=== PATIENT | female | born 1970 | race Caucasian/White ===

== ENCOUNTER → 2018-01-10 15:50 | Outpatient (CLI) | payer OTHER, SELFPAY ==
--- NOTE | 2018-01-10 16:08 | RAD_ITS ---
STUDY: X-RAY - CERVICAL SPINE REASON FOR EXAM: Female, 47 years old. Pain TECHNIQUE: 7 view(s) of the cervical spine were obtained. COMPARISON: None FINDINGS: There is no evidence of fracture or dislocation in the cervical spine. The dens is intact. The vertebral body heights and disc spaces are well-maintained. There is no evidence of subluxation on flexion or extension There are no significant degenerative changes. The prevertebral soft tissues are unremarkable. There is no radiodense foreign body. RAD/Cerv Spine Obl/Flex/Ext Comp IMPRESSION: Negative radiographs of the cervical spine. Electronically Signed: Demetris Hill, at 23:45 EDT Tel , Service support ,
== END ==
PROVIDERS: Family Provider Nurse Practitioner Family; PCP Nurse Practitioner Family; Visit Provider Family Medicine
DX: M54.2 Cervicalgia (principal)
CPT/HCPCS: 72052

== ENCOUNTER → 2018-02-14 09:29 | Outpatient (CLI) | payer OTHER, SELFPAY ==
[2018-02-14 10:23] LABS: Glucose 87 mg/dL (74-106)
[2018-02-14 10:35] LABS: Insulin 10.4 mU/L (2.6-37.6)
== END ==
PROVIDERS: Family Provider Nurse Practitioner Family; PCP Nurse Practitioner Family; Visit Provider Internal Medicine Endocrinology, Diabetes & Metabolism
DX: E28.2 Polycystic ovarian syndrome (principal)
CPT/HCPCS: 36415; 82947; 83525; 84403

== ENCOUNTER 2018-03-13 08:15 | Outpatient (RCR) | payer OTHER, SELFPAY ==
--- NOTE | 2018-02-13 10:39 | MASS.EVAL ---
Massage Therapy Evaluation: Initial Evaluation Date: 02/13/2018 SUBJECTIVE: Alem is a 48 year old female who was referred to the [facility] facility for a massotherapy evaluation by Dr. Gary Barahona with the diagnosis of cervical myalgia and thoracic myalgia. 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 Alem presents today with the symptoms of neck and upper back pain and tension. She also has muscle tension in her low back. Alem reports having a medical history of neck and back pain. She reports she has had physical therapy and some chiropractor work. She reports having minimal limitations during her daily activities. OBJECTIVE: Upon observation Alem has poor posture with her head forward and shoulders forward from the neutral position in sitting and standing. After examination and palpation I found Alem to have very high muscle tension with tenderness and myofascial restrictions in her sub occipitals, trapezius, rhomboids, scalenes, thoracic paraspinals. Her cervical through lumbar paraspinals were also tight. The first treatment consisted of a one hour massage to her upper body with myofascial release, muscle stripping, trigger point compression techniques, and cervical manual traction. ASSESSMENT: I feel that Alem is a good candidate for massotherapy at this time. She had a favorable response to the first treatment with reduction in her muscle aches, pain and tension. She also had improvement in her cervical flexibility. PLAN: The plan of care was reviewed with the patient. The patient is to be seen on as needed basis for a total of ten sessions with the recommendation of once every four weeks for a one hour treatment.
--- NOTE | 2018-02-13 10:45 | MASS.EVAL_ITS ---
Massage Therapy Evaluation: Initial Evaluation Date: 02/13/2018 SUBJECTIVE: Alem is a 48 year old female who was referred to the [facility] facility for a massotherapy evaluation by Dr. Gary Barahona with the diagnosis of cervical myalgia and thoracic myalgia. 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 Alem presents today with the symptoms of neck and upper back pain and tension. She also has muscle tension in her low back. Alem reports having a medical history of neck and back pain. She reports she has had physical therapy and some chiropractor work. She reports having minimal limitations during her daily activities. OBJECTIVE: Upon observation Alem has poor posture with her head forward and shoulders forward from the neutral position in sitting and standing. After examination and palpation I found Alem to have very high muscle tension with tenderness and myofascial restrictions in her sub occipitals, trapezius, rhomboids, scalenes, thoracic paraspinals. Her cervical through lumbar paraspinals were also tight. The first treatment consisted of a one hour massage to her upper body with myofascial release, muscle stripping, trigger point compression techniques, and cervical manual traction. ASSESSMENT: I feel that Alem is a good candidate for massotherapy at this time. She had a favorable response to the first treatment with reduction in her muscle aches, pain and tension. She also had improvement in her cervical flexibility. PLAN: The plan of care was reviewed with the patient. The patient is to be seen on as needed basis for a total of ten sessions with the recommendation of once every four weeks for a one hour treatment.
--- NOTE | 2018-10-03 12:59 | MASS.DISCH ---
Massage Therapy Discharge Summary: Discharge Date: 10/03/2018 Alem was seen for a massotherapy evaluation on 02/13/2018 with the diagnosis of cervical and thoracic myalgia. She was treated with two sessions of massage therapy consisting of moderate to deep pressure soft tissue techniques, myofascial release and trigger point compression to her cervical, thoracic, lower back, and upper extremities. Alem responded well to the therapy by reporting decreased tension and pain throughout her neck, shoulders, and lower back. She was only able to schedule two appointments for the year 2017. At this time this patient is being discharged from our care at [facility] facility.
== END 2018-03-13 19:00 | disposition home or self-care (01) ==
LOC: MASS 08:15
PROVIDERS: Family Provider Nurse Practitioner Family; PCP Nurse Practitioner Family
DX: M79.1 Myalgia (principal)
CPT/HCPCS: 97124

== ENCOUNTER → 2018-05-07 06:03 | Outpatient (CLI) | payer OTHER, SELFPAY ==
[2018-05-07 07:35] LABS: Glucose 93 mg/dL (74-106)
[2018-05-07 08:45] LABS: Hemoglobin A1c 4.9 % (4.2-6.3)
[2018-05-07 09:57] LABS: Insulin 10.8 mU/L (2.6-37.6)
== END ==
PROVIDERS: Family Provider Nurse Practitioner Family; PCP Nurse Practitioner Family
DX: E28.2 Polycystic ovarian syndrome (principal)
CPT/HCPCS: 36415; 82947; 83036; 83525

== ENCOUNTER → 2018-08-29 09:05 | Outpatient (CLI) | payer OTHER, SELFPAY ==
--- NOTE | 2018-08-29 13:40 | NEURO ---
NCS and/or EMG Patient Report Ordering Doctor: Miguel Ángel Bee DATE OF SERVICE: 08/29/18 Alem Messer is a 48-year-old female presents for electrodiagnostic testing of the left upper limb. Shorts numbness and tingling in the left hand. Next Electrodiagnostic findings: Left median motor nerve demonstrates normal distal latency, amplitude and conduction velocity. Normal left ulnar motor response, including conduction across the elbow. Normal median and ulnar F wave. Prolonged left median sensory latency at the wrist. Prolonged left median palmar latency. On needle EMG, all muscles tested in the left upper limb as well as left cervical paraspinal showed no evidence of denervation with normal motor unit action potentials. Electrodiagnostic impression: This is an abnormal study. 1. Electrodiagnostic findings demonstrate left-sided median mononeuropathy. This is consistent with a mild left carpal tunnel syndrome. If there are any further questions, please do not hesitate to contact me
== END ==
PROVIDERS: Family Provider Nurse Practitioner Family; PCP Nurse Practitioner Family; Referring Provider Family Medicine; Visit Provider Family Medicine
DX: R20.0 Anesthesia of skin (principal)
CPT/HCPCS: 95886; 95910

== ENCOUNTER → 2018-09-05 21:21 | Outpatient (CLI) | payer OTHER, SELFPAY ==
[2018-09-10 13:52] LABS: HPV APTIMA, High Risk Negative (Negative)
== END ==
PROVIDERS: Family Provider Nurse Practitioner Family; PCP Nurse Practitioner Family; Referring Provider Nurse Practitioner Women's Health; Visit Provider Nurse Practitioner Women's Health
DX: Z12.4 Encounter for screening for malignant neoplasm of cervix (principal)
CPT/HCPCS: 87624; 88175; G0145

== ENCOUNTER → 2018-09-28 10:02 | Outpatient (CLI) | payer OTHER, SELFPAY ==
[2018-09-21 14:15] VITALS: BMI 41.1
[2018-09-28 11:15] LABS: Estradiol 189.8 pg/mL; Follicle Stimulating Hormone 5.2 mIU/mL
== END ==
PROVIDERS: Family Provider Family Medicine; PCP Family Medicine; Referring Provider Obstetrics & Gynecology; Visit Provider Obstetrics & Gynecology
DX: N95.1 Menopausal and female climacteric states (principal)
CPT/HCPCS: 36415; 82670; 83001

== ENCOUNTER → 2018-10-31 13:38 | Outpatient (CLI) | payer OTHER, SELFPAY ==
[2018-09-21 14:15] VITALS: BMI 41.1
[2018-10-31 17:35] LABS: Chlamydia Trachomatis by PCR Negative (Negative); Neisserai gonorrhoeae by PCR Negative (Negative); Probe Check PASS; Sample Adequacy Control PASS; Specimen Processing Control PASS
== END ==
PROVIDERS: Family Provider Family Medicine; PCP Family Medicine; Referring Provider Obstetrics & Gynecology; Visit Provider Obstetrics & Gynecology
DX: Z20.2 Contact with and (suspected) exposure to infections with a predominantly sexual mode of transmission (principal)
CPT/HCPCS: 87491; 87591

== ENCOUNTER → 2018-11-15 14:40 | Outpatient (CLI) | payer OTHER, SELFPAY ==
--- NOTE | 2018-11-15 17:20 | BI_ITS ---
MAMMOGRAPHY - BILATERAL SCREENING REASON FOR EXAM: Female, 48 years old. Routine annual screening examination. PERTINENT HISTORY: Non-contributory. TECHNIQUE: Digital bilateral breast leora (3D mammographic acquisition) in the CC and MLO projections. 2-D mediolateral oblique (MLO) and craniocaudad (CC) views of both breasts were obtained. CAD: Full Field Digital Mammography with Computer Added Detection was performed. COMPARISON: Comparison is made with prior study dated November 09, 2017 and October 12, 2015. FINDINGS: Breast Composition: There are scattered areas of fibroglandular density. There are no dominant masses or suspicious calcifications. No other significant abnormalities are identified. There has been no significant change since the prior study. BI/SCREENING MAMM (CAD), BILAT IMPRESSION: Stable bilateral screening mammogram. Yearly follow-up mammogram recommended. (A) ASSESSMENT CATEGORY: BIRADS Category 1: Negative. A letter regarding these results will be sent to the patient by the facility within 30 days. Approximately 10% of breast cancers are not detected by mammography. A normal mammogram should not delay biopsy of a clinically suspicious abnormality. [id number] Electronically Signed: Malcom Rachel MD at 8:41 EST , Service support ,
--- OUTSIDE RECORDS SUMMARY | 2019-02-25 18:55 | XMS RPT_ITS | CCD ---
:1970 External Reference #:[id number] [facility] Care Team Providers Name Role Phone Unavailable Unavailable Unavailable Medications Medication Name Sig Date Prescriber Location amoxicillin / AMOXICILLIN-POT 08-28-2017 - Frank CARRIZALES [facility] Now [facility] clavulanate CLAVULANATE 875-125 09-07-2017 (67586) MG TABS Take 1 tab every 12 hours AMOXICILLIN-POT CLAVULANATE [id number] Frank CARRIZALES Problems Category Problem Name Status Date Location Other upper Congestion of nasal Completed 08-28-2017 [facility] respiratory disease sinus (70424) Other upper Acute sinusitis Completed 08-28-2017 [facility] respiratory infections (69312) Results Result Name Value Range Unit Interpretation Flag Date Location office visit: uc: sinus congestion on null Documentation of Done Invalid 08-28-2017 [facility] Now current medications Interpretation Code 08-28-2017 [facility] (procedure) (51867) Fall risk assessment No Invalid 08-28-2017 [facility] Interpretation Code 08-28-2017 [facility] (13089) Tobacco use [facility] Never smoker Invalid 08-28-2017 [facility] Interpretation Code 08-28-2017 [facility] ([id number]) cnpn on 2018-05-11 CNPN Telephone Normal 05-11-2018 [place] ([facility]) ALEM MESSER Phu Butler ([id number]) 1970 [facility] Time Provider Department05/11/18 MARYELLEN BOLIVAR During your visit [place] today, we recorded the following information about you:Kary Doherty RN 05/11/2018 10:49 AM ([id number]) SignedReceived a faxed request for PA for RX Saxenda from [facility].Completed the PA form for [employer] (form was provided to us from the pharmacy).Completed and faxed form and OV notes to [phone]. Transmission ok.Will await approval / denial.Kary Doherty RN 05/17/2018 9:34 AM SignedCalled to check the status of the below PA request for Saxenda.Called [employer] at [phone], spoke to rep Gaona. She stated that thisrequest us DENIED due to it being a plan exclusion.Patient will be notified of the denial and that this will be sent to Dr Bolivarro review when she returns to the office 05/28/18.Called patient's home# [phone] , left voice message to call office [phone], and ask to speak to the nurse.Kary Doherty RN 05/17/2018 10:06 AM SignedPatient returned call.Message below provided to patient.Please review the below.Maryellen Bolivar MD 05/28/2018 9:12 AM SignedReAgustin Bolivar MD05/28/18Kary Doherty RN 05/31/2018 9:31 AM SignedPatient called back, asking if there another medication that can be prescribedfor weight loss that she could pay out of pocket for?Maryellen Bolivar MD 05/31/2018 3:02 PM SignedWe could try Qsymia, but that is likely a plan of exclusion as wellIf she can call her insurance and find out if they cover any weight loss Rx,that will be easierMaryellen Bolivar MD05/31/18Kary Doherty RN 06/01/2018 9:29 AM SignedThis entire drug class is a plan exclusion.Patient is willing to pay out of pocket she just wants to be placed on the mostcost effective one.Maryellen Bolivar MD 06/04/2018 8:54 AM AddendumWill Rx QysmiaPlease fax the Rx to pharmacyFor the initial 2 week, the dose will be 3.75/23 mg dailyAfterwards, she will start 7.5/46 mg dailyShe will stay on that dose until she follow ups with me in 12 weeksMaryellen Bolivar MD06/04/18keily Bolivar MD 06/04/2018 8:54 AM SignedAddended by: MARYELLEN BOLIVAR DO on: 06/04/2018 08:54 AM Modules accepted: Arely Newman Ma 06/04/2018 9:37 AM SignedThe following prescriptions have been approved and faxed to [facility] [phone]. Transmission ok:Signed Prescriptions Disp Refills phentermine-topiramate ER (QSYMIA) 3.75-23 mg 24 Hr Capsule 14 capsule 0 Sig: Take 1 capsule by mouth once daily for 14 days. STAN Class: C-IV Authorizing Provider: MARYELLEN BOLIVAR phentermine-topiramate ER (QSYMIA) 7.5-46 mg 24 Hr Capsule 30 capsule 2 Sig: Take 1 capsule by mouth once daily for 30 days. STAN Class: C-IV Authorizing Provider: Ronnie BOLIVARergies As of Date: 05/11/2018(No Known Allergies)Date Reviewed: 04/12/2018Reviewed by: Maryellen Bolivar - Fully AssessedReason for Visit: SOFIE--Sylvia 2017 [Other]Primary Visit Diagnosis:Class 3 obesity without serious comorbidity with body mass index (BMI) of 40.0 to 44.9 in adult, unspecified obesity type (HCC) [E66.9, Z68.41]Order(s):phentermine-topiramate ER (QSYMIA) 3.75-23 mg 24 Hr CapsuleTake 1 capsule by mouth once daily for 14 days.Disp: 14 capsuleRfl: 0 [START ON 06/18/2018] phentermine- topiramate ER (QSYMIA) 7.5-46 mg 24 Hr CapsuleTake 1 capsule by mouth once daily for 30 days.Disp: 30 capsuleRfl: 2Prescriptions as of 05/11/2018 Sig: PHENTERMINE 3.75 MG-TOPIRAMAT* Take 1 capsule by mouth once * PHENTERMINE 7.5 MG-TOPIRAMATE* Take 1 capsule by mouth once * METFORMIN 500 MG TABLET Take 1 tablet by mouth twice * LIRAGLUTIDE 3 MG/0.5 ML (18 M* Inject 0.6 mg subcutaneously *Problem List As Of Date 05/11/2018 Noted Resolved Class 3 obesity without serious comorbidity wit*INVALID FOR* Hirsutism [L68.0] INVALID FOR* Insulin resistance [E88.81] INVALID FOR* PCOS (polycystic ovarian syndrome) [E28.2] INVALID FOR*Prescriptions ordered this encounter Disp Refills Start End PHENTERMINE 3.75 MG-TOPIRAMATE ER 23* 14 c* 0 06/04/2018 06/18/2018 Class: Print RX Route: ORAL Sig: Take 1 capsule by mouth once daily for 14 days. PHENTERMINE 7.5 MG-TOPIRAMATE ER 46 * 30 c* 2 06/18/2018 07/18/2018 Class: Print RX Route: ORAL Sig: Take 1 capsule by mouth once daily for 30 days. Status:Closed by MARYELLEN BOLIVAR DO on 05/28/18 progress on 2018-04-12 Protein HNO ID: [id number]: Maryellen Martinezervice: (none)Author Normal 04-12-2018 [facility] Type: PhysicianType: Progress NotesFiled: 04/13/2018 10:10 Clinic conc AMNote Text: POLYCYSTIC OVARIAN SYNDROME INITIAL [place] CONSULTPATIENT NAME: Alem MesserMRN: [id number] ([id number]) DATE: 04/12/2018REASON FOR CONSULT: PCOSREQUESTING PHYSICIAN: SELFSubjectiveHISTORY OF PRESENT ILLNESS: Ms. Messer is a 48 year old femalepresenting as a new patient to me for evaluation of PCOS.History in brief, she was diagnosed with PCOS at age 21.States that at that time, she had irregular mensesHer main concern today is weight mgmtAcne:NoHirsutism: upper lip and chin, some on the chestPatient uses mechanical hair removal (i.e. tweezers/waxing/shaving):tweezes dailyHistory of deepening of voice: NoHistory of change in genitalia: NoLMP: April 02, 2018States that her cycles > 4 weeks apartMenarche: 13 years oldNumber of Pregnancies: 1 pregnancyNo trouble concievingPlanning a : noCurrently taking oral contraception: no, she stopped OCP 20 years agoIn the past, she also tried MetforminDeveloped nausea and stopped itOverall, the patient has no acute complaints at this time.Patient reports that she saw an caterpillar operator and was restarted onMetforminIn the past, she tried weight watchers and was able to lose weightRecently, she started Advocare supplements and nutritional drinks.Reports that she works multiple job and her schedule variesShe eats regular meals, snacks are healthyReports that she mostly eats protein for breakfastFeels very hungry prior to lunchPAST MEDICAL HISTORYDiagnosis Date- PCOS (polycystic ovarian syndrome)PAST SURGICAL HISTORYProcedure Laterality Date- KNEE ARTHROSCOPYFAMILY HISTORYProblem Relation Age of Onset- Diabetes Maternal GrandmotherSocial HistorySubstance Use Topics- Smoking status: Former Smoker- Smokeless tobacco: Never Used- Alcohol use NoMEDICATIONS:Current Outpatient Prescriptions:metFORMIN 500 mg tablet Take 1 tablet by mouth twice daily with meals.Disp: 60 tablet Rfl: 6No current facility-administered medications for this visit.ALLERGIESNo Known AllergiesCOMPLETE REVIEW OF SYSTEMS:CONSTITUTIONAL: Negative for weakness, lightheadedness, F/C, increasedthirst, unexplained weight loss/weight gain, heat intolerance or feelingcold.EYES: Negative for blurry vision, retinopathy, or hemianopia.CARDIOVASCULAR: Negative for CP, DIAZ, PND, orthopnea, HTM, dizziness orpalpitations.RESPIRATORY: Negative for cough, SOB, breathlessness or hemoptysis.GASTROINTESTINAL: Negative for N/V/D, gastroparesis, polydipsia, abdominalpain, liver failure or constipation.MUSCULOSKELETAL: Negative for pain, injury, focal weakness, ambulation,fractures, deformity or myopathy.NEUROLOGICAL: Negative for paresthesias, headache, h/o stroke/TIA,lethargy or exhaustion.ENDOCRINE: Negative for diabetes, thyroid or Richardson's.HEMATOLOGIC/LYMPHATIC: Negative for bruising or bleeding.ALLERGIC/IMMUNOLOGIC: Negative for splenectomy.ObjectivePHYSICAL EXAM:BP 137/88 (BP Site: Left Arm, BP Position: Sitting, BP Cuff Size: LargeAdult) Pulse 77 Ht 167.5 cm (5' 5.95) Wt 120.2 kg (265 lb) SpO2 97%BMI 42.84 kg/i4USBNQAKYYQ:Well appearing, alert, in no acute distress, well-hydrated,well nourished.Acanthosis Nigricans:NoneEYES:TERI, extra occular movements normalNECK:neck supple, no adenopathy; thyroid symmetric, normal size, nobruits.THYROID:normal to inspection, palpation and auscultationTHYROID SIZE:normalHEART:RRR with normal S1 and S2, no murmurs, no gallops, no JVDappreciatedLUNGS:clear to auscultationABD:bowel sounds normoactive, no bruits, soft, non-tender, non-distendedEXTREMITIES:Normal, No deformities, No skin discoloration, No edema andNormal pulses bilaterally.NEURO:Awake, alert and oriented x 3, No involuntary motions. and ReflexessymmetricalSKIN:Skin color, texture, turgor normal, no suspicious rashes or lesionsDATA:Diagnostic tests reviewed for today's visit:Most recent labsImpression/RecommendationsAssessment/Plan:PCOSInsulin resistanceObesity/BMI 42HirsutismHer goal is to lose weight and reduce hirsutismWe discussed pathophysiology of PCOS and treatment goalsNo biochemical evidence of androgen excessThis was evaluated by her previous endocrinologistTestosterone was normal per patientthyroid function test were normalCheck A1c, fasting insulin and glucose levelWill titrate metformin accordinglyWe discussed weight loss medication- Saxenda vs QsymiaWill await biochemical evaluationCut down on carbs and increase protein in her dietRecommended her to continue physical activityWe briefly discussed adding Qtrqojhqi366 mg daily to reduce hirsutismSIGNATURE: Maryellen Bolivar MDDATE: April 12, 2018TIME: 1:07 PM cnov on 2018-04-12 CNOV Office Visit Normal 04-12-2018 [place] ([facility]) ALEM MESSER ([id number]) 1970 FDate Time Provider Department04/12/18 12:45 PM MARYELLEN BOLIVAR During your [place] visit today, we recorded the following information about you: Pulse Blood pressure Weight Height (57929) 77/minute 137/88 120.2 kg 1.675 Prabha Bolivar MD 04/13/2018 10:10 AM Signed POLYCYSTIC OVARIAN SYNDROME INITIAL CONSULTPATIENT NAME: Alem MesserMRN: [id number] DATE: 04/12/2018REASON FOR CONSULT: PCOSREQUESTING PHYSICIAN: SELFSubjectiveHISTORY OF PRESENT ILLNESS: Ms. Messer is a 48 year old female presenting asa new patient to me for evaluation of PCOS.History in brief, she was diagnosed with PCOS at age 21.States that at that time, she had irregular mensesHer main concern today is weight mgmtAcne:NoHirsutism: upper lip and chin, some on the chestPatient uses mechanical hair removal (i.e. tweezers/waxing/shaving): tweezesdailyHistory of deepening of voice: NoHistory of change in genitalia: NoLMP: April 02, 2018States that her cycles > 4 weeks apartMenarche: 13 years oldNumber of Pregnancies: 1 pregnancyNo trouble concievingPlanning a : noCurrently taking oral contraception: no, she stopped OCP 20 years agoIn the past, she also tried MetforminDeveloped nausea and stopped itOverall, the patient has no acute complaints at this time.Patient reports that she saw an caterpillar operator and was restarted on MetforminIn the past, she tried weight watchers and was able to lose weightRecently, she started Advocare supplements and nutritional drinks.Reports that she works multiple job and her schedule variesShe eats regular meals, snacks are healthyReports that she mostly eats protein for breakfastFeels very hungry prior to lunchPAST MEDICAL HISTORYDiagnosis Date- PCOS (polycystic ovarian syndrome)PAST SURGICAL HISTORYProcedure Laterality Date- KNEE ARTHROSCOPYFAMILY HISTORYProblem Relation Age of Onset- Diabetes Maternal GrandmotherSocial HistorySubstance Use Topics- Smoking status: Former Smoker- Smokeless tobacco: Never Used- Alcohol use NoMEDICATIONS:Current Outpatient Prescriptions:metFORMIN 500 mg tablet Take 1 tablet by mouth twice daily with meals. Disp: 60tablet Rfl: 6No current facility-administered medications for this visit.ALLERGIESNo Known AllergiesCOMPLETE REVIEW OF SYSTEMS:CONSTITUTIONAL: Negative for weakness, lightheadedness, F/C, increased thirst,unexplained weight loss/weight gain, heat intolerance or feeling cold.EYES: Negative for blurry vision, retinopathy, or hemianopia.CARDIOVASCULAR: Negative for CP, DIAZ, PND, orthopnea, HTM, dizziness orpalpitations.RESPIRATORY: Negative for cough, SOB, breathlessness or hemoptysis.GASTROINTESTINAL: Negative for N/V/D, gastroparesis, polydipsia, abdominalpain, liver failure or constipation.MUSCULOSKELETAL: Negative for pain, injury, focal weakness, ambulation,fractures, deformity or myopathy.NEUROLOGICAL: Negative for paresthesias, headache, h/o stroke/TIA, lethargy orexhaustion.ENDOCRINE: Negative for diabetes, thyroid or El's.HEMATOLOGIC/LYMPHATIC: Negative for bruising or bleeding.ALLERGIC/IMMUNOLOGIC: Negative for splenectomy.ObjectivePHYSICAL EXAM:BP 137/88 (BP Site: Left Arm, BP Position: Sitting, BP Cuff Size: Large Adult)Pulse 77 Ht 167.5 cm (5' 5.95) Wt 120.2 kg (265 lb) SpO2 97% BMI 42.84kg/s1IDOYJCZMAA:Well appearing, alert, in no acute distress, well-hydrated, wellnourished.Acanthosis Nigricans:NoneEYES:TERI, extra occular movements normalNECK:neck supple, no adenopathy; thyroid symmetric, normal size, no bruits.THYROID:normal to inspection, palpation and auscultationTHYROID SIZE:normalHEART:RRR with normal S1 and S2, no murmurs, no gallops, no JVD appreciatedLUNGS:clear to auscultationABD:bowel sounds normoactive, no bruits, soft, non-tender, non-distendedEXTREMITIES:Normal, No deformities, No skin discoloration, No edema and Normalpulses bilaterally.NEURO:Awake, alert and oriented x 3, No involuntary motions. and ReflexessymmetricalSKIN:Skin color, texture, turgor normal, no suspicious rashes or lesionsDATA:Diagnostic tests reviewed for today's visit:Most recent labsImpression/RecommendationsAssessment/Plan:PCOSInsulin resistanceObesity/BMI 42HirsutismHer goal is to lose weight and reduce hirsutismWe discussed pathophysiology of PCOS and treatment goalsNo biochemical evidence of androgen excessThis was evaluated by her previous endocrinologistTestosterone was normal per patientthyroid function test were normalCheck A1c, fasting insulin and glucose levelWill titrate metformin accordinglyWe discussed weight loss medication- Saxenda vs QsymiaWill await biochemical evaluationCut down on carbs and increase protein in her dietRecommended her to continue physical activityWe briefly discussed adding [id number] mg daily to reduce hirsutismSIGNATURE: Maryellen Bolivar MDDATE: April 12, 2018TIME: 1:07 Roger Bolivar MD 04/12/2018 1:34 PM AddendumGet labs drawn, this has to be done fastingThen, I will send the prescription for Qysmia or SaxendaFollow up in 12-14 weeksReferring Provider: SELF [[id number]]Allergies As of Date: 04/12/2018(No Known Allergies)Date Reviewed: 04/12/2018Reviewed by: Maryellen Bolivar - Fully AssessedReason for Visit: Polycystic Ovarian Syndrome [1460]Primary Visit Diagnosis:PCOS (polycystic ovarian syndrome) [E28.2] Other Visit Diagnoses:Class 3 obesity without serious comorbidity with body mass index (BMI) of 40.0 to 44.9 in adult, unspecified obesity type (HCC) [E66.9, Z68.41] Insulin resistance [E88.81] Hirsutism [L68.0]Order(s):HGB A1C [VKZDU9M] Order #: [id number] FUTURE INSULIN ASSAY BLOOD [SQINSULN] Order #: [id number] FUTURE GLUCOSE FASTING BLD [SQGLF] Order #: [id number] FUTUREPrescriptions as of 04/12/2018 Sig: METFORMIN 500 MG TABLET Take 1 tablet by mouth twice *Medication notes this encounter METFORMIN 500 MG TABLET >> Nohelia Newman Ma 04/12/2018 12:45 PM >> NOHELIA NEWMAN MA 21, 2018 12:45 PM D/cProblem List As Of Date 04/12/2018 Noted Resolved Class 3 obesity without serious comorbidity wit*INVALID FOR* Other instructions from your clinician: Get labs drawn, this has to be done fasting Then, I will send the prescription for Qysmia or Saxenda Follow up in 12-14 [facility]En[facility]ent[facility]er Number: [id number] Status:Closed by MARYELLEN BOLIVAR DO on 04/13/18 pathology ([facility]) on 2017-11-16 Pathology ([facility]) FINAL GYNECOLOGIC CYTOLOGY Normal 11-16-2017 [facility] Healthcare [id number] ([id number]) ADEQUACYSatisfactory for Evaluation. Endocervical cells/transformation zone componentpresent.GENERAL CATEGORIZATIONNegative for Intraepithelial Lesion or MalignancyCLINICAL HISTORYComment: No LMP provided.SPECIMEN(A) SCREENING CERVICAL/ENDOCERVICAL LIQUID-BASED PAPPerformed at [facility], [address] [place], [place] [address]Screened by: Signed Out by: FABIEN TELLEZ Investment Consultant Reported: 11/22/2017 Comment: Performed By: #### BOOKMAKER'S CLERK ####[facility] [address] [place] [address] pathology ([facility]) on 2017-09-07 Pathology ([facility]) FINAL GYNECOLOGIC CYTOLOGY Normal 09-07-2017 [facility] Healthcare [id number] ([id number]) ADEQUACYUnsatisfactory for Evaluation. Specimen is processed and examined, butunsatisfactory for evaluation of epithelial abnormality due to:Scant cellularity.GENERAL CATEGORIZATIONUnsatisfactory for evaluation.CLINICAL HISTORYComment: No LMP provided.SPECIMEN(A) SCREENING CERVICAL/ENDOCERVICAL LIQUID-BASED PAPPerformed at [facility], [address] [place], [place] [address]Screened by: Signed Out by: KARY HERNANDEZ Investment Consultant Reported: 09/18/2017 Comment: Performed By: #### BOOKMAKER'S CLERK ####[facility] [id number] [place] [address] Vital Signs Vital Sign Description Value / Unit Date Location The following section is limited to 5 entries per type and includes entries from the following time range: 20170828 - 20170828. BMI (Body Mass Index) 41.7 kg/m2 08-28-2017 - 08-28-2017 [facility] ([id number]) Body Temperature 98.8 [degF] 08-28-2017 - 08-28-2017 [facility] ([id number]) Height 167.64 cm 08-28-2017 - 08-28-2017 [facility] ([id number]) Pulse (Heart Rate) 78 /min 08-28-2017 - 08-28-2017 [facility] (19983) Respiratory Rate 13 /min 08-28-2017 - 08-28-2017 [facility] (51055) Weight 117.21 kg 08-28-2017 - 08-28-2017 [facility] ([id number]) Encounters Date Type Reason Provider Location 04-12-2018 - Patient encounter MARYELLEN BOLIVAR [facility] 04-12-2018 [place] ([id number]) 01-30-2019 - Patient encounter Carlos Jaun Facility:[place] 01-31-2019 [facility] 10-03-2018 - Patient encounter Carlos Jaun Facility:[place] 10-04-2018 [facility] 08-22-2018 - Patient encounter Carlos Zamorano Facility:[place] 08-23-2018 [facility] 07-20-2018 - Patient encounter Miguel Ángel Butler Facility:[place] 07-21-2018 [facility] 07-20-2018 - Patient encounter Maria Teresa Butler Facility:[place] 07-20-2018 [facility] Plan of Treatment Plan Description Date Location Appointment Appointment 08-28-2017 - 08-28-2017 [facility] ([id number]) no information [facility] ([id number]) The following information is from the original human readable content Type Date Detail Appointment 08:00 AM Frank CARRIZALES, [address] [place] [address], [address], [address], Summary Purpose DATE CREATED AUTHOR AUTHOR'S ORGANIZATION 04/16/2018 [facility] DATE CREATED AUTHOR AUTHOR'S ORGANIZATION 06/06/2018 [facility] DATE CREATED AUTHOR AUTHOR'S ORGANIZATION 01/31/2019 [facility] Family History No Family History Records Found Advance Directives No Advanced Directives Records Found Additional Source Comments FOR RECORDS PERTAINING TO PATIENTS WHO ARE OR HAVE BEEN ENROLLED IN A CHEMICAL DEPENDENCY/SUBSTANCE ABUSE PROGRAM, SOME INFORMATION MAY BE OMITTED. This clinical summary was aggregated from multiple sources. Caution should be exercised in using it in the provision of clinical care. This summary normalizes information from multiple sources, and as a consequence, information in this document may materially changethe coding, format and clinical context of patient data. In addition, data may be omittedin some cases. CLINICAL DECISIONS SHOULD BE BASED ON THE PRIMARY CLINICAL RECORDS. [facility] provides no warranty or guarantee of the accuracy or completeness of information in this document. UNRECOGNIZED CONTENT PROVIDED BELOW FOR UNRECOGNIZED SECTION INFORMATION SOURCE DATE CREATED AUTHOR AUTHOR'S ORGANIZATION 01/31/2019 [facility] DATE CREATED AUTHOR AUTHOR'S ORGANIZATION 06/06/2018 [facility] DATE CREATED AUTHOR AUTHOR'S ORGANIZATION 04/16/2018 [facility]
== END ==
PROVIDERS: Family Provider Nurse Practitioner Family; PCP Nurse Practitioner Family; Referring Provider Nurse Practitioner Women's Health; Visit Provider Nurse Practitioner Women's Health
DX: Z12.31 Encounter for screening mammogram for malignant neoplasm of breast (principal)
CPT/HCPCS: 77063; 77067

== ENCOUNTER → 2019-02-05 21:03 | Outpatient (CLI) | payer OTHER, SELFPAY ==
[2018-09-21 14:15] VITALS: BMI 41.1
--- NOTE | 2019-02-05 21:09 | RAD_ITS ---
HISTORY: low back pain, radiates into left hip COMPARISON: 09/11/2017 FINDINGS: XR Spine 5 views No significant change. The lumbar vertebra show normal height and alignment. No fracture or acute disease. L4-5 moderate disc space narrowing. L5-S1 disc space narrowing accompanied by mild endplate spurring. The posterior elements appear intact. No spondylolisthesis. SI joints are preserved. RAD/L/S Spine Min 4 Views IMPRESSION: 1. Stable findings. L4-5 and L5-S1 degenerative disc disease. 2. No fracture or acute disease. Normal lumbar vertebral alignment. at 0551 Reported and signed by: Akin Blandon MD Electronically Signed: Akin Blandon, at 5:49 EDT Tel , Service support ,
--- NOTE | 2019-02-05 21:09 | RAD_ITS ---
HISTORY: left hip pain, no injury COMPARISON: 08/17/2015 FINDINGS: XR Hip AP pelvis and left hip 3 views No fracture or acute osseous abnormality. The right and left femoral acetabular joint spaces are preserved. No bony erosions. No developmental hip dysplasia. The SI joints appear preserved. Chronic appearing mild sclerosis of the pubic bones bordering the pubic symphysis. RAD/HIP, UNI W/ Pelvis 2-3 Views IMPRESSION: Normal left hip. at 6146 Reported and signed by: Akin Blandon MD Electronically Signed: Akin Blandon, at 5:45 EDT Tel , Service support ,
== END ==
PROVIDERS: Family Provider Family Medicine; PCP Family Medicine; Referring Provider Family Medicine; Visit Provider Family Medicine
DX: M25.552 Pain in left hip (principal); M54.5 Low back pain
CPT/HCPCS: 72110; 73502

== ENCOUNTER 2019-10-13 19:12 | Emergency (ER) | payer OTHER, SELFPAY ==
[2019-09-11 10:49] VITALS: BMI 41.1
[2019-10-13 19:14] VITALS: BP 143/86; PULSE 71; RESP 18; TEMP 37.3; O2SAT 98; BMI 42.5
--- NOTE | 2019-10-13 20:00 | ED.VISSUMM ---
- ER Visit Summary Date of Service: 10/13/19 Chief Complaint: Right ear pain History of Present Illness: The patient is a 49 F who presents with right ear pain that has been getting worse over the past 2 days. Patient describes her pain as aching. Patient states pain radiates into her jaw. Patient states her pain is worse with movement of her jaw. Patient did not take anything at home for the pain. Patient denies any fevers or chills. Patient denies any sore throat. Patient denies any upper respiratory congestion. Physical Examination: Vital signs are stable. Patient is afebrile. Patient is in no acute distress. The left tympanic membrane is clear. The right tympanic membrane is occluded with cerumen. There is some mild tenderness with manipulation of the right external ear. Oral mucosa is pink and moist. Neck is supple. Trachea is midline. There is no JVD. Heart was regular rate and rhythm. Lungs are clear and equal bilaterally. Annual nerves II through XII are intact. There are no focal motor or sensory deficits noted. Emergency Department Course and Treatment: Debrox drops were applied to the right ear. The right ear was irrigated. The right external auditory canal was erythematous. The right tympanic membrane was clear. Patient felt better on reevaluation. Patient was given a prescription for Cortisporin otic suspension. Patient was instructed to take Tylenol or ibuprofen as needed for pain. Patient was instructed to follow-up with her primary care physician in 5 to 7 days. Patient understood and was agreeable with the plan. All questions were answered. Disposition: Discharge home Impression: Right otitis externa This note was generated with [employer] dictation software. It may contain incorrect words, spelling, and punctuation that were not noted in review of the chart prior to signing ED Disposition - Plan for ED Patient: Disposition: Home or Assisted Living Diagnosis: Right otitis externa Instructions: EXTERNAL EAR INFECTION (Adult) Prescriptions: Neomyc/Colist/Hydrocort/Thonzn [Cortisporin-Tc Ear Suspension] 5 drp OT 4X/DAY #10 ml Prescription Printed Referrals: Jose Francisco Zamorano MD [Primary Care Provider] - 5-7 Days
[2019-10-13] MEDS: Carbamide Peroxide 15 ML Bottle 5 DRP OTIC (20:09)
[2019-10-13 21:35] VITALS: RESP 16
== END 2019-10-13 21:36 | disposition home or self-care (01) ==
PROVIDERS: Emergency Provider Emergency Medicine; Family Provider Family Medicine; PCP Family Medicine
DX: H60.91 Unspecified otitis externa, right ear (principal); H61.21 Impacted cerumen, right ear
CPT/HCPCS: 99282

== ENCOUNTER → 2019-11-21 08:44 | Outpatient (CLI) | payer OTHER, SELFPAY ==
[2019-09-10 09:54] VITALS: BMI 41.1
[2019-11-05 13:07] VITALS: BMI 42.5
--- NOTE | 2019-11-21 08:45 | BI_ITS ---
MAMMOGRAPHY - BILATERAL SCREENING REASON FOR EXAM: Female, 49 years old. Routine annual screening examination. PERTINENT HISTORY: Non-contributory. TECHNIQUE: Digital bilateral breast babar (3D mammographic acquisition) in the CC and MLO projections. 2-D mediolateral oblique (MLO) and craniocaudad (CC) views of both breasts were obtained. CAD: Full Field Digital Mammography with Computer Added Detection was performed. COMPARISON: Comparison is made with prior study dated November 15, 2018 and November 09, 2017. FINDINGS: Breast Composition: There are scattered areas of fibroglandular density. There are no dominant masses or suspicious calcifications. No other significant abnormalities are identified. There has been no significant change since the prior study. BI/SCREEN MAMM (CAD) W/BABAR BILAT IMPRESSION: Stable bilateral screening mammogram. Yearly follow-up mammogram recommended. (A) ASSESSMENT CATEGORY: BIRADS Category 1: Negative. A letter regarding these results will be sent to the patient by the facility within 30 days. Approximately 10% of breast cancers are not detected by mammography. A normal mammogram should not delay biopsy of a clinically suspicious abnormality. [id number] Electronically Signed: Malcom Rachel, at 9:42 EST , Service support ,
[2020-05-20 08:21] VITALS: BMI 40.0
== END ==
PROVIDERS: Family Provider Family Medicine; PCP Family Medicine; Referring Provider Nurse Practitioner Women's Health; Visit Provider Nurse Practitioner Women's Health
DX: Z12.31 Encounter for screening mammogram for malignant neoplasm of breast (principal)
CPT/HCPCS: 77063; 77067

== ENCOUNTER → 2019-11-26 10:53 | Outpatient (CLI) | payer OTHER, SELFPAY ==
[2019-11-26 10:11] VITALS: BMI 39.6
[2019-11-26 13:03] LABS: T4 Free Direct 1.07 ng/dL (0.76-1.46); Thyroid Stim Hormone (TSH) 1.28 uIU/mL (0.358-3.74)
== END ==
PROVIDERS: PCP Internal Medicine; Referring Provider Internal Medicine; Visit Provider Internal Medicine
DX: I10 Essential (primary) hypertension (principal); Z13.29 Encounter for screening for other suspected endocrine disorder
CPT/HCPCS: 36415; 84439; 84443

== ENCOUNTER → 2019-11-27 18:12 | Outpatient (CLI) | payer OTHER, SELFPAY ==
[2019-11-26 10:11] VITALS: BMI 39.6
--- NOTE | 2019-11-27 18:21 | RAD_ITS ---
STUDY: X-RAY - CERVICAL SPINE REASON FOR EXAM: Female, 49 years old. NECK PAIN TECHNIQUE: 3 view(s) of the cervical spine were obtained. COMPARISON: 01/10/2018 FINDINGS: Normal anterior atlantoaxial articulation. Normal odontoid process. There is straightening of the normal cervical lordosis. Normal vertebral bodies and endplates. Mild loss of disc space at C6-C7 is new since the prior study. There appears to be uncovertebral hypertrophy at C6-C7 as well. No subluxation. The soft tissue structures are unremarkable. RAD/Cerv Spine 2 or 3 Views IMPRESSION: 1. Interval development of degenerative disc disease at C6-C7. Electronically Signed: Timothy Tate MD (Bro[place]) at 13:33 EST , Service support ,
== END ==
PROVIDERS: PCP Internal Medicine; Referring Provider Internal Medicine; Visit Provider Internal Medicine
DX: M54.12 Radiculopathy, cervical region (principal)
CPT/HCPCS: 72040

== ENCOUNTER → 2019-12-18 10:13 | Outpatient (CLI) | payer OTHER, SELFPAY ==
[2019-12-18 10:06] VITALS: BMI 39.6
--- NOTE | 2019-12-18 10:14 | RAD_ITS ---
STUDY: X-RAY - PELVIS AND LEFT HIP REASON FOR EXAM: Female, 49 years old. INCREASING LEFT HIP PAIN, NKI TECHNIQUE: 3 views of the pelvis and hip. COMPARISON: Prior pelvis and left hip films of February 05, 2019 FINDINGS: There is a non-specific bowel gas pattern. Normal visualized soft tissue structures. Normal bilateral iliac wings, sacroiliac joints and visualized sacrum. Normal bilateral superior and inferior pubic rami. Mild degenerative changes of the symphysis pubis not progressive from the prior exam. Normal bilateral ischial tuberosities. Normal visualized femoral head. Normal acetabulum. Normal hip joint. RAD/HIP, UNI W/ Pelvis 2-3 Views IMPRESSION: Normal left hip. Mild degenerative changes of the symphysis pubis not progressive from the prior exam. Otherwise normal pelvis. Electronically Signed: Cira Perez MD at 23:36 EST , Service support ,
== END ==
PROVIDERS: PCP Internal Medicine; Referring Provider Orthopaedic Surgery; Visit Provider Orthopaedic Surgery
DX: M25.551 Pain in right hip (principal)
CPT/HCPCS: 73502

== ENCOUNTER 2019-12-19 12:00 | Outpatient (RCR) | payer OTHER, SELFPAY ==
[2019-11-26 10:11] VITALS: BMI 39.6
--- NOTE | 2019-12-04 15:21 | HP.PTEVAL_ITS ---
Patient's Visit Information JAKE COOPER is a 49 year old F referred to Physical Therapy by Ulices Bernal MD with a diagnosis of c/s radiculopathy.. Date of Evaluation: 12/04/19 Physical Therapist: Darryl Barrientos, DPT, OCS, CSCS - Visit Plan Frequency: 2x /Week Duration: 4-6 Weeks Plan: 2x/week for 2-4 weeks for Shannan based progression of forces on c/s ext, then c/s ext mobs as needed adn postural and cervical strengthening. Monitor c/s ext ROM, and deviation with ext adn pain. Modalities as needed. - Subjective Findings: Neck issues for the last year mostly L sided pain. Insidious onset. 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 NCT due to numbness over a year ago with L arm numbness. It showed carpal tunnel syndrome. Not tingling or numb much at all anymore. Now has L sided LAZAR frequently 1-2x/week. Feels tension in shoulder blades elevating them. Has most days of neck apin or discomfort. Sleep is not interrupted. Works in [employer] and not worse with work, is on feet much of day moving around. Basic ADLs are getting done btu none worsen. Not sure what the pattern to the pain is. No hobbies. Wants more motion with less pain. - Pain L neck Pain Intensity (Out of 10): 1 Pain Intensity Range: 1, 3 - Objective Posture is forward head and elevated scapula. reflexes bi and tri 2/3. Sensation UE WNL to gross lgiht touch. Strength UE without pain and 4/5, no myotomal abnormalities. Tenderness to touch is unremarkable in soft tissue scap and neck. + L c/s compression. C/s arom ext pain L deviates R slightly adn 45, L and R rotation 65 withotu pain, SB without pain except L SB on L side. repeated motion, comfortable to start. prtrusion. causes tension. repeated retraction:NE. repeated ret/ext P L neck pain during and better motion after. - Goals Goal 1:: Full c/s AROM without pain. Goal Time Frame: 4-6 Weeks Goal 2:: Pain in necka dn LAZAR 80% better at 1/10 and manageable. Goal Time Frame: 4-6 Weeks Goal 3:: No deficits in neck oswestry. Goal Time Frame: 4-6 Weeks Goal 4:: I approp HEp to minimize future problems. Goal Time Frame: 4-6 Weeks - Rehabilitation Potential Physical Therapy Diagnosis: c/s radiculopathy likely discal pathology. Rehabilitation Potential: Fair - Anticipated Interventions Patient/Client Instruction: Educate patient on: Condition, Plan of Care For the Purpose of:: To decrease pain, To increase ROM, To improve muscle performance and motor function Therapeutic Exercise to Include: Strength training, Postural training, Passive ROM, Active ROM, Shannan Exercises For the Purpose of:: To decrease pain, To increase ROM, To increase tolerance to activity/condition/position Manual Therapy Techniques to Include: Mobilization For the Purpose of:: To decrease pain, To increase ROM Thermo therapy (hot pack): Yes For the Purpose of:: To decrease pain, To increase tolerance to activity/condition/position Thank you for the opportunity to evaluate your patient. For Medicare and Medicare HMO plans, please review the plan of care and approve it. It will need to be FAXED BACK to us at [phone] for Medicare purposes. For Medicare only, by signing this I certify the plan of care. Please let me know if there are questions or concerns regarding this plan of care. Physician Signature: Date:
--- NOTE | 2019-12-19 12:15 | HP.PTDCSUM ---
HP - PT D/C Summary It has been my pleasure to treat JAKE COOPER under orders from Ulices Bernal MD, for the diagnosis of c/s radiculopathy. for a total of 5 visit(s). Discharge Date: 12/19/19 Please see the following information for a summary of their discharge status. - Subjective Subjective: Been doing well adn feels like she can replicate exercises at [employer]. Had a slight LAZAR Monday but may have been stress, went away quickly. No neck pain. HEP without pain or pinching. - Pain L neck Pain Intensity (Out of 10): 0 - Overall Improvement % Improvement: 90 - Objective Objective/Function: Full cervical and UE AROM without pain, OP ext causes very slight transient pinch L c/s. Strength UE 4/5 without pain. Pt doing excellent adn should be able to progress at home/gym on her own. Back to doctor next week. - Goals Goal 1:: Full c/s AROM without pain. Goal Progress: Goal Met Goal 2:: Pain in necka dn LAZAR 80% better at 1/10 and manageable. Goal Progress: Goal Met Goal 3:: No deficits in neck oswestry. Goal Progress: near met Goal 4:: I approp HEp to minimize future problems. Goal Progress: Goal Met - Plan Plan: d/c - D/C Information Discharge Comments: To continue at home. If there are questions or concerns regarding this patient's physical therapy, please feel free to call me at [phone]. Thank you for the referral of this patient. Sincerely, Darryl Barrientos, DPT, OCS, CSCS
== END 2019-12-19 19:00 | disposition home or self-care (01) ==
LOC: PT 12:00
PROVIDERS: PCP Internal Medicine; Referring Provider Internal Medicine; Visit Provider Internal Medicine
DX: M54.12 Radiculopathy, cervical region (principal)
CPT/HCPCS: 97110; 97140; 97161; 97164; 97530

== ENCOUNTER → 2020-03-24 13:52 | Outpatient (CLI) | payer OTHER, SELFPAY ==
[2020-03-24 13:33] VITALS: BMI 39.6
[2020-03-24 14:10] LABS: Hematocrit 40.7 % (37-47); Hemoglobin 13.7 g/dL (12.0-15.0); Mean Corp Hgb Conc 33.7 g/dL (32-36); Mean Corpuscular Hgb 30.3 pg (27.0-32.0); Mean Platelet Vol. 10.3 fl (6.2-12.0); Platelet Count 227 K/mm3 (150-450); RBC Distribution Width SD 39.7 fl (35.1-43.9); Red Blood Count 4.52 M/mm3 (4.2-5.4); White Blood Count 6.5 K/mm3 (4.4-11.0)
[2020-03-24 14:22] LABS: AST(SGOT) 12 U/L (15-37); Alanine Aminotransfer ALT/SGPT 23 U/L (13-56); Albumin, Serum 3.6 g/dL (3.2-5.0); Alkaline Phosphatase 81 U/L (45-117); Anion Gap 7 (5-15); BUN 13 mg/dL (7-18); BUN/Creat Ratio 15.7 RATIO (10-20); Calcium,Total 8.9 mg/dL (8.5-10.1); Chloride 109 mmol/L (98-107); Creatinine, Serum 0.83 mg/dL (0.55-1.02); EST Glomerular Filtration Rate 78 mL/min (>60); Est Glom Filt Rate - Afr Amer 94 mL/min (>60); Globulin 3.6 g/dL (2.2-4.2); Glucose 93 mg/dL (74-106); Potassium 4.5 mmol/L (3.5-5.1); Protein, Total 7.2 g/dL (6.4-8.2); Sodium Level 143 mmol/L (136-145)
== END ==
PROVIDERS: PCP Internal Medicine; Referring Provider Surgery; Visit Provider Surgery
DX: R10.9 Unspecified abdominal pain (principal)
CPT/HCPCS: 36415; 80053; 85027

== ENCOUNTER → 2020-03-26 16:30 | Outpatient (CLI) | payer OTHER, SELFPAY ==
[2020-02-27 16:52] VITALS: BMI 39.6
[2020-03-24 13:33] VITALS: BMI 39.6
--- NOTE | 2020-03-26 16:32 | CT_ITS ---
STUDY: CT ABDOMEN AND PELVIS WITH CONTRAST REASON FOR EXAM: Female, 50 years old. LOWER ABD BLOATING AND GAS, LOW BACK PAIN, and quot;MENSTRUAL LIKE and quot; CRAMPING RADIATION DOSAGE (If Supplied By Facility): CTDIvol = ( 17.07 ) mGy, DLP = ( 1270.48 ) mGycm TECHNIQUE: Transaxial images were obtained from the dome of the diaphragm to the symphysis pubis with oral contrast. Oral and amp; IV Gastrografin and amp; 100mL Isovue-300 was administered. Sagittal and coronal images were reconstructed. Individualized dose optimization techniques were used for this CT. COMPARISON: None. FINDINGS: The visualized lung bases are unremarkable. The visualized portions of the heart are within normal limits. Normal liver. Normal gallbladder and extrahepatic biliary system. Normal spleen. Normal pancreas. Normal bilateral adrenal glands. Normal right kidney. Normal left kidney. Normal visualized stomach. Normal small intestine. Normal colon. The appendix is visualized and appears normal. Normal abdominal aorta. Normal inferior vena cava. Normal retroperitoneum. Normal urinary bladder. There is a 4.3 cm x 2.3 cm left ovarian cyst. There is a small umbilical hernia containing fat. Disc space narrowing and disc degeneration at the L4-L5 and L5-S1 levels. CT/Abdomen/Pelvis WITH Contrast IMPRESSION: 4.3 cm x 2.3 cm left ovarian cyst. Electronically Signed: Malcom Rachel, at 9:23 EDT , Service support ,
== END ==
PROVIDERS: PCP Internal Medicine; Visit Provider Surgery
DX: R10.9 Unspecified abdominal pain (principal)
CPT/HCPCS: 74177; Q9967

== ENCOUNTER 2020-04-21 07:34 | Day surgery (SDC) | payer OTHER, SELFPAY ==
[2020-03-24 13:33] VITALS: BMI 39.6
[2020-04-13 11:09] VITALS: BMI 39.6
--- NOTE | 2020-04-21 | COLBX_PTH ---
PATIENT: JAKE COOPER LOC: EN U#:[id number] AGE/SX: 50/F ROOM: RE04/21/[address]: Dr. Neto Richardson MD : 1970 BED: DIS: 04/21/2020 SPEC #: [id number] RECD: 04/21/20 14:10 STATUS: SAMIRA BABAK #: [id number] FEROZ: 04/21/20 00:[address]: Neto Richardson DEPT: SURGICAL PATHOLOGY RECD BY: Boo Box ENTERED: 04/21/20 14:11 SP TYPE: COLON BX OTHR DR: Dr. Ulices Bernal MD Tissues: COLON BIOPSY Procedures: Surgery Specimen Level IV HEADER OPERATION: Colonoscopy (MAC) PRE-OP DIAGNOSIS: Abdominal pain, changes in bowel habits TISSUE SUBMITTED: Random colonic biopsy MICROSCOPIC DIAGNOSIS Colon, random biopsy: No significant pathologic change. No evidence of colitis. AM:tre 04/22/20 MICROSCOPIC DESCRIPTION Slides are reviewed. GROSS DESCRIPTION Received in fixative is one container labeled with the patient's name and designated random colonic biopsy. The specimen consists of multiple irregular fragments of light francis soft tissue that in aggregate measure 1 x 0.5 x 0.1 cm. The specimen is totally submitted in one cassette. / SJ:tre 04/21/20 TC:5 CPT: 56631
[2020-04-21 08:04] VITALS: BP 134/72; PULSE 48; RESP 16; TEMP 36.4; O2SAT 95; BMI 39.0
--- NOTE | 2020-04-21 08:04 | HP.PCM_ITS ---
Problem List (1) Abdominal pain Status: Acute Qualifiers: (2) Change in bowel habit Status: Acute History and Physical Date of Admission: 04/21/20 Intake Visit Reasons: CSCOPE/ CHANGE IN BOWEL HABIT Chief Complaint: Phone only visit, no video access, abdominal pain, bloating, constipation Complex Case Manager Required: No Is patient in pain?: Yes (lower abdomen) Allergies No Known Allergies Allergy (Verified 03/24/20 13:32) Medications multivitamin 1 cap PO DAILY 11/26/19 [History Confirmed 12/27/19] turmeric root extract 500 mg capsule 500 mg PO DAILY 12/18/19 [History Confirmed 12/27/19] meloxicam 15 mg tablet 15 mg PO DAILY #90 tab 12/27/19 [Rx Confirmed 12/27/19] omeprazole 20 mg capsule,delayed release 20 mg PO DAILY #90 cap 02/27/20 [Rx Confirmed 02/27/20] ascorbic acid (vitamin C) 500 mg capsule mg PO 03/24/20 [History Confirmed 03/24/20] cholecalciferol (vitamin D3) 50 mcg (2,000 unit) capsule 50 mcg PO DAILY 03/24/20 [History Confirmed 03/24/20] [facility] Medical History Frequent headaches (Chronic) Back problem (Chronic) PCOS (polycystic ovarian syndrome) (Chronic) Surgical History H/O section (Acute) Family History Grandmother Diabetes type 2 Aunt Diabetes type 2 Other Anxiety and depression Social History (Updated 03/24/20 @ 13:[address] 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 The patient is referred by Gary Matthews NP and a written copy of my surgical consult recommendations will be returned to him. 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 October 2019 she was seen by Dr. Franklin Granados who advised a diet high in fruits and vegetables. The patient notes a long-term history of polycystic ovarian syndrome. On the prescribed diet she was able lose 24 pounds in weight. However on a nightly basis she would develop little abdominal bloating gas distention with discomfort that actually would even radiate to her low back. Admitted December in part due to some of the stresses of the Covid-19 pandemic the diet came to an end however bowel function has remained erratic. She feels like she is only able to incompletely empty her bowels. There is been some urinary incontinence weakness. The pain can radiate to bilateral lower quadrants as well as to the back. More of discomfort. There is been no nausea or vomiting or fever or chills or sweats. Out of her initial 24 pound weight loss she has had about a 6 to 8 pound regain. There is no family history of colon cancer or colon polyps. She has not noticed any bright red blood per rectum or melena HPI HPI HPI: JAKE COOPER, is a 50 F who presents to the office today for ROS General General: Yes fatigue; no weight change, appetite, colon cancer, breast cancer or weakness HEENT HEENT: No difficulty swallowing, eye injury, eye surgery, swollen glands or hoarseness Endo Endocrine: No thyroid disease, diabetes mellitus, thyroid cancer, Hair loss, heat intolerance or cold intolerance Skin Skin: No rash or changing moles Breast Breast: No left breast lump, right breast lump, nipple discharge, breast pain, abnormal mammogram, abnormal US or breast enlargement Musc Musculoskeletal: Yes back problems and arthritis; no rheumatoid arthritis, gout or joint pain Cardio Cardiovascular: No murmur, pacemaker, heart disease, atrial fibrillation, high blood pressure, heart attack, heart stent, palpitations, shortness of breat with exertion or chest pain Psych Psychiatric: Yes anxiety; no depression or hearing voices Resp Respiratory: No shortness of breath, No sleep apnea, No cough, No COPD, No asthma, No emphysema, No wheezing Gastro Gastrointestinal: Yes abdominal pain, No nausea or vomiting, No diarrhea, Yes constipation, No blood in stool, No acid reflux, No hemorrhoids, No ulcers, No gallbladder problem, No black,tarry stools Kody Hematologic: No blood thinners, No blood disorders, No bleeding, No anemia, No blood clots Neuro Neurologic: No system reviewed and no additional complaints, except as docu, No as per HPI, No abnormal walking, No abnormal hearing, No abnormal movements, No abnormal speech, No behavioral changes, No burning sensations, No confusion, No seizure-like activity, No unsteadiness, No dizziness, No localized weakness, No frequent falls, No headache(s), No lack of coordination, No loss of vision, No memory loss, No numbness, No other visual disturbances, No radiating pain, No restless legs, No sensory deficit, No fainting, No tingling, No tremor(s), No weakness, No other Exam Const General: cooperative, comfortable, no acute distress Nutritional Appearance: obese Orientation: alert, awake [facility] Head: normal to inspection Eyes General: appearance normal, both eyes and all related structures Neck Neck: supple Carotids: normal carotid upstroke, no bruits Chest Chest palpation & inspection: normal inspection of the chest Breast Palpation: No nipple discharge Resp Effort & Inspection: normal respiratory effort Auscultation: clear to auscultation bilaterally Cardio Rate: regular rate Rhythm: regular rhythm Heart Sounds: no murmurs GI Palpation: soft, no hepatosplenomegaly Auscultation: normal bowel sounds Neuro Cognition: normal cognition Extrem General: no calf tenderness Psych Affect: normal affect Assessment & Plan Problems 1. Abdominal pain, unspecified abdominal location R10.9 2. Change in bowel habit R19.4 Plan 50-year-old female with abdominal bloating distention cramping and change of bowel habits with incomplete evacuation. There is concerns of radiating bilateral lower abdomen pain to the back. Etiology is not clear. She does have a chronic history of polycystic ovarian syndrome. I am recommending that we obtain a complete metabolic profile and a CBC. Recommending a CT scan of the abdomen and pelvis looking for a solid organ or other etiology. I have recommended the patient a colonoscopy with possible biopsy or polypectomy because of the incomplete evacuation change in bowel habits and significant cramping. She is aware of technique, benefit, risk and alternatives. She is aware that she is presenting during the time of COVID 19 but that the [facility] reports a low local incidence. I appreciate the opportunity of assisting with surgical care we will try to expedite her management. Cc: DIMPLE Chau M.D., F.A.C.S. Orders Orders: Colonoscopy Today R19.4 Comprehensive Metabolic Profil Today R10.9 Abdomen/Pelvis WITH Contrast Today R10.9 CBC-Complete Blood Cnt No Diff Today R10.9 Coding Level of Care Code 82295 Diagnoses Abdominal pain, unspecified abdominal location R10.9 ??Abdominal location: unspecified location Change in bowel habit R19.4 CT scan demonstrated a left ovarian cyst. Does not explain the change of bowel habits. Laboratory was not remarkable. We will proceed with colonoscopy with possible biopsy or polypectomy is indicated. Etiology to her abdominal pain and change of bowel habits is yet not determined. Neto Richardson M.D., F.A.C.S. Procedure Criteria Procedure Type: Elective COVID Risk Discussion: The surgeon/proceduralist and patient have discussed in detail the risk of exposure to and/or potential harm posed by the COVID-19 virus with having a surgery/procedure at this time versus the risk of delaying the surgery/procedure. It is not possible to know either the risk of delaying the surgery or procedure or chance of getting an infection with perfect accuracy, but a joint decision was made between the patient and the surgeon/proceduralist to proceed at this time with the scheduled surgery/procedure as indicated on the consent form.
[2020-04-21] MEDS: Lactated Ringers 1,000 ML 100 ML IV (08:08)
[2020-04-21 08:10] LABS: Internal QC Validated? YES +Cl - CLEAR BKGD; Pregnancy, Urine Negative Negative
[2020-04-21 09:56] VITALS: BP 102/55; BP 134/72; PULSE 55; RESP 16; TEMP 36.5; O2SAT 97
[2020-04-21 10:00] VITALS: BP 102/60; BP 134/72; PULSE 66; RESP 16; O2SAT 98
--- NOTE | 2020-04-21 10:00 | OP.COLON_ITS ---
Patient Name: Alem Messer Procedure Date: 04/21/2020 9:30 AM Date of : 1970 Age: 50 Procedure: Colonoscopy Indications: Change in bowel habits Providers: Neto Richardson MD Referring MD: Ulices Bernal MD Medicines: See the Anesthesia note for documentation of the administered medications Patient Profile: Last Colonoscopy: none. The patient's first colonoscopy is today. Complications: No immediate complications. Procedure: Pre-Anesthesia Assessment: - Prior to the procedure, a History and Physical was performed, and patient medications and allergies were reviewed. The patient's tolerance of previous anesthesia was also reviewed. The risks and benefits of the procedure and the sedation options and risks were discussed with the patient. All questions were answered, and informed consent was obtained. Prior Anticoagulants: The patient has taken no previous anticoagulant or antiplatelet agents. ASA Grade Assessment: II - A patient with mild systemic disease. After reviewing the risks and benefits, the patient was deemed in satisfactory condition to undergo the procedure. After I obtained informed consent, the scope was passed under direct vision. Throughout the procedure, the patient's blood pressure, pulse, and oxygen saturations were monitored continuously. The adult colonoscope was introduced through the anus and advanced to the cecum, identified by appendiceal orifice and ileocecal valve. The colonoscopy was somewhat difficult due to a redundant colon. The patient tolerated the procedure well. The quality of the bowel preparation was good. The ileocecal valve and the appendiceal orifice were photographed. Scope In: 9:38:00 AM Scope Withdrawal Time 0 hours 8 minutes 32 seconds Scope Out: 9:53:16 AM Total Procedure Duration Time 0 hours 15 minutes 16 seconds Findings: The perianal and digital rectal examinations were normal. The colon (entire examined portion) was moderately redundant. The exam was otherwise without abnormality. Biopsies for histology were taken with a cold forceps from the entire colon for evaluation of microscopic colitis. Impression: - Redundant colon. - The examination was otherwise normal. - Biopsies were taken with a cold forceps from the entire colon for evaluation of microscopic colitis. Recommendation: - Discharge patient to home. - Resume previous diet. - Continue present medications. - Repeat colonoscopy in 10 years for screening purposes. - Telephone my office for pathology results in 1 week. Lax colon throughout. Consider fiber supplementation. No findings to correlate with patient concerns at this time. Procedure Code(s): --- Professional --- 83931, Colonoscopy, flexible; with biopsy, single or multiple Diagnosis Code(s): --- Professional --- R19.4, Change in bowel habit Q43.8, Other specified congenital malformations of intestine CPT copyright 2017 [employer]. All rights reserved. The codes documented in this report are preliminary and upon clinical coder review may be revised to meet current compliance requirements. Neto Richardson MD 04/21/2020 9:59:49 AM This report has been signed electronically. Number of Addenda: 0 Note Initiated On: 04/21/2020 9:30 AM
--- NOTE | 2020-04-21 10:00 | OP.CCLET_ITS ---
04/21/2020 Ulices Bernal MD [address] [place] [address] [place] [address] Re : Colonoscopy procedure for Alem Messer Dear Dr. Bernal This procedure was performed on Tuesday, April 21, 2020. My impressions and recommendations are as follows: Impressions : - Redundant colon. - The examination was otherwise normal. - Biopsies were taken with a cold forceps from the entire colon for evaluation of microscopic colitis. Recommendations : - Discharge patient to home. - Resume previous diet. - Continue present medications. - Repeat colonoscopy in 10 years for screening purposes. - Telephone my office for pathology results in 1 week. Lax colon throughout. Consider fiber supplementation. No findings to correlate with patient concerns at this time. My findings are described in the full procedure note, which is enclosed. If I can be of further assistance, please feel free to contact me at Doctor phone number(s): Work: . Sincerely, Neto Richardson MD 04/21/2020 9:59:49 AM This report has been signed electronically.
[2020-04-21 10:05] VITALS: BP 108/68; BP 134/72; PULSE 61; RESP 16; O2SAT 98
[2020-04-21 10:11] VITALS: BP 129/83; BP 134/72; PULSE 53; RESP 18; TEMP 36.9; O2SAT 98
[2020-04-21 10:40] VITALS: BP 134/72
== END 2020-04-21 10:55 | disposition home or self-care (01) ==
LOC: EN 07:35 → AC 07:36
PROVIDERS: Anesthesiology; PCP Internal Medicine; Referring Provider Internal Medicine; Visit Provider Surgery
PROC: 0DJD8ZZ Inspection of Lower Intestinal Tract, Via Natural or Artificial Opening Endoscopic (ICD-10-PCS; CPT 45378; principal; 2020-04-21 08:40)
DX: R19.4 Change in bowel habit (principal); R10.9 Unspecified abdominal pain; Q43.8 Other specified congenital malformations of intestine; K58.9 Irritable bowel syndrome, unspecified; Z11.59 Encounter for screening for other viral diseases; E28.2 Polycystic ovarian syndrome; R32 Unspecified urinary incontinence; Z79.1 Long term (current) use of non-steroidal anti-inflammatories (NSAID); Z79.899 Other long term (current) drug therapy; Z87.891 Personal history of nicotine dependence
CPT/HCPCS: 45380; 81025; 87635; 88305; G2023; J7120; J2405; U0003

== ENCOUNTER 2020-04-30 10:30 | Outpatient (RCR) | payer OTHER, SELFPAY ==
[2020-04-13 11:09] VITALS: BMI 39.6
--- NOTE | 2020-04-16 09:14 | HP.PTEVAL_ITS ---
Patient's Visit Information JAKE COOPER is a 50 year old F referred to Physical Therapy by Dr. Angel Anguiano DO with a diagnosis of Groin and Lateral Hip Pain. Date of Evaluation: 04/16/20 Physical Therapist: Tricia Starks DPT - Visit Plan Frequency: 2-3x /Week Duration: 3 Weeks Plan: Focus on core and hip strength/stabilization. HEP given 04/16: Isometric abdominals, bridge, clam no band, hamstring stretch seated - Subjective Patient reports that her LEFT hip is bothering her- saw Dr. Montesinos in Nov- bursitits that has been going on for over a year- had a cortisone injection- which made it a lot better. It is starting to wear off. The pain prior was on the outside and really bothered her to lay on it. Now the pain is more in the groin- but has had x-rays which were normal. When she sits to long it takes her a minute to engage the muscles to get started. No radiating pain into the thigh- does have low back issues. Low back is really bad in the AM- hard to bend over or shave her legs in the mornings. Pain is more located all along the whole pelvis but as the day goes on it gets easier. Sleep: roadkill position right side popped up. describes the pain as dull and achy-prior to the injection she would get a sharp pain if she turned the wrong way but that has not happened really since the injection. No MRI- had a CT scan of pelvis- PCS- and colonoscopy. Feels that its very stress related. No N/T running down the LE. Has no history of trauma- but did have hip dysplasia when she was little but can't remember which side it was. 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 Best: 12/02 Eases: Ibuprofen. Works at [employer]. One daughter- college- - no trauma- narrow pelvis. PMHx: PCS Meds: vitamins. - Objective Posture: FH, RS, increased kyphosis- pt is overweight-can correct with verbal cues but does not maintain. Gait: slightly antalgic- decreased stance on the left LE. ROM: Lumbar and Hip: WNL but pain with IR of the hip and extension of the lumbar spine. Palpation: tender along paraspinals on the right, gluts, greater troch and down the ITBand on the left. Strength: ankle: 5/5, Knee:5/5 Hip: Flexion: 4-/5, Abd: 4/5, glut med: 4-/5, extn: 4-/5, add: 4+/5, IR/ER: 4- /5. Special Test: SANDY: positive, Scour: positive, LLD: negative. Dural Signs: negative, Slump: negative. Flex: HS: severe, Gastroc: moderate. Observation: moderate pes planus - Goals Goal 1:: Patient will be I with HEP and progression Goal Time Frame: 4-6 Weeks Goal 2:: Patient will maintain proper posture t/o tx session to demo increased core s/s Goal Time Frame: 4-6 Weeks Goal 3:: Patient will report no hip pain for 1 week Goal Time Frame: 4-6 Weeks Goal 4:: Patient will demo increase 1 muscle strength grade in all deficit areas of LE Goal Time Frame: 4-6 Weeks - Rehabilitation Potential Physical Therapy Diagnosis: Patient presents with hypmobility- she has decreased painfree ROM, strength, flex and muscular endurance leading to poor posture and increased pain with ADL's Rehabilitation Potential: Good - Anticipated Interventions Patient/Client Instruction: Educate patient on: Benefits of Fitness Program Therapeutic Exercise to Include: Strength training, Endurance training, Agility training, Body mechanics, Postural training, Flexibilty training, Gait and locomotor training, Neuromotor development, Dynamic Lumbar Stabilization Thank you for the opportunity to evaluate your patient. For Medicare and Medicare HMO plans, please review the plan of care and approve it. It will need to be FAXED BACK to us at [phone] for Medicare purposes. For Medicare only, by signing this I certify the plan of care. Please let me know if there are questions or concerns regarding this plan of care. Physician Signature: Date:
--- NOTE | 2020-07-20 14:48 | HP.PT.NRP ---
JAKE COOPER was seen in my office for initial evaluation on 04/16/20. The following Plan of Care was established for this patient: Initial Frequency: 2-3x /Week Initial Duration: 3 Weeks Patient/Client Instruction: Educate patient on: Benefits of Fitness Program Therapeutic Exercise to Include: Strength training, Endurance training, Agility training, Body mechanics, Postural training, Flexibilty training, Gait and locomotor training, Neuromotor development, Dynamic Lumbar Stabilization This patient was last seen in our office . Pertinent comments regarding their Physical therapy will appear below: Patient has not returned to PT in over 6 weeks- referred back to MD for possible MRI of hip- appropriate for d/c. At this point I will be discontinuing this patient from physical therapy. I would be happy to see this patient again in the future if found appropriate by the physician. Thank you! Tricia Starks DPT
== END 2020-04-30 19:00 | disposition home or self-care (01) ==
LOC: PT 10:30
PROVIDERS: PCP Internal Medicine; Referring Provider Orthopaedic Surgery; Visit Provider Orthopaedic Surgery
DX: M25.559 Pain in unspecified hip (principal)
CPT/HCPCS: 97110; 97162

== ENCOUNTER → 2020-05-22 17:38 | Outpatient (CLI) | payer OTHER, SELFPAY ==
[2020-05-20 08:21] VITALS: BMI 40.0
--- NOTE | 2020-05-22 17:59 | US_ITS ---
STUDY: ULTRASOUND OF THE FEMALE PELVIS - COMPLETE REASON FOR EXAM: Female, 50 years old. OV CYST-LT LMP: 05/15/2020 TECHNIQUE: Transabdominal and Transvaginal TECHNICAL QUALITY: Adequate. COMPARISON: Report of previous study of 12/25/2013 FINDINGS: The uterus is anteverted and is in a midline position. The uterus measures 8.8 x 4.5 x 4.6 cm. There are cervical nabothian cysts. There is a possible cervical fibroid measuring 0.7 x 0.8 x 0.5 cm. The endometrium measures 2 mm in thickness, and is hyperechoic. There is no demonstrated endometrial mass. There are 2 uterine fibroids, one located in the fundus measuring 1.1 x 1.2 x 0.9 cm, and the second and posterior uterine body measuring 2.0 x 1.8 x 1.3 cm. I.U.D. - The patient does not have an I.U.D. The right ovary is visualized. The right ovary measures 1.5 x 1.3 x 0.9 cm. There is a right ovarian cyst measuring 1.2 x 0.7 x 0.8 cm. There is no visualized right adnexal mass or complex lesion. There is normal arterial and normal venous vascularity. The left ovary is visualized. The left ovary measures 5.5 x 3.9 x 2.7 cm. There are several left ovarian cysts, the largest measuring 3.6 x 3.2 x 2.6 cm. There is no visualized left adnexal mass or complex lesion. There is normal arterial and normal venous vascularity. There is no fluid in the cul-de-sac. The pre void volume of the bladder was 270 ml. Polycystic ovary disease: No. US/Pelvic (Non ) IMPRESSION: Bilateral ovarian cysts. Uterine and possible cervical fibroids as detailed above. Cervical nabothian cysts. Electronically Signed: Isra Calix MD at 19:48 EDT , Service support ,
--- NOTE | 2020-05-22 18:50 | US_ITS ---
STUDY: ULTRASOUND OF THE FEMALE PELVIS - COMPLETE REASON FOR EXAM: Female, 50 years old. OV CYST-LT LMP: 05/15/2020 TECHNIQUE: Transabdominal and Transvaginal TECHNICAL QUALITY: Adequate. COMPARISON: Report of previous study of 12/25/2013 FINDINGS: The uterus is anteverted and is in a midline position. The uterus measures 8.8 x 4.5 x 4.6 cm. There are cervical nabothian cysts. There is a possible cervical fibroid measuring 0.7 x 0.8 x 0.5 cm. The endometrium measures 2 mm in thickness, and is hyperechoic. There is no demonstrated endometrial mass. There are 2 uterine fibroids, one located in the fundus measuring 1.1 x 1.2 x 0.9 cm, and the second and posterior uterine body measuring 2.0 x 1.8 x 1.3 cm. I.U.D. - The patient does not have an I.U.D. The right ovary is visualized. The right ovary measures 1.5 x 1.3 x 0.9 cm. There is a right ovarian cyst measuring 1.2 x 0.7 x 0.8 cm. There is no visualized right adnexal mass or complex lesion. There is normal arterial and normal venous vascularity. The left ovary is visualized. The left ovary measures 5.5 x 3.9 x 2.7 cm. There are several left ovarian cysts, the largest measuring 3.6 x 3.2 x 2.6 cm. There is no visualized left adnexal mass or complex lesion. There is normal arterial and normal venous vascularity. There is no fluid in the cul-de-sac. The pre void volume of the bladder was 270 ml. Polycystic ovary disease: No. US/Transvaginal Non- IMPRESSION: Bilateral ovarian cysts. Uterine and possible cervical fibroids as detailed above. Cervical nabothian cysts. Electronically Signed: Isra Calix MD at 19:48 EDT , Service support ,
== END ==
PROVIDERS: PCP Internal Medicine; Visit Provider Nurse Practitioner Women's Health
DX: N83.202 Unspecified ovarian cyst, left side (principal); N83.201 Unspecified ovarian cyst, right side
CPT/HCPCS: 76830; 76856

== ENCOUNTER → 2020-06-03 10:08 | Outpatient (CLI) | payer OTHER, SELFPAY ==
[2020-05-20 08:21] VITALS: BMI 40.0
--- NOTE | 2020-06-03 10:10 | RAD_ITS ---
CLINICAL HISTORY: Female, 50 years old. Left hip pain. PROCEDURE: ARTHROGRAM - LEFT HIP CONSENT: The procedure as well as the benefits and possible complications including infection and bleeding were explained to the patient. Informed consent was obtained. FLUOROSCOPY TIME (if supplied): (57 seconds) minutes/seconds. A single image was obtained. Injection Information: 10 cc of diluted Doteram Number of images obtained: 1 TECHNIQUE: (All elements of maximal sterile barrier technique followed, including US elements as applicable) The patient was in the supine position. The overlying skin was prepped and draped in the usual sterile fashion. Following local anesthetic application and under direct fluoroscopic guidance, a 22-gauge spinal needle was placed into the hip joint. 2 cc of ISOVUE-300 was injected for confirmation. Following this, 10 cc of dilute Doteram was injected. MRI will follow. The patient tolerated the procedure well. RAD/Arthrogram Hip IMPRESSION: Successful arthrogram for MRI examination. Electronically Signed: Malcom Rachel, at 12:51 EDT , Service support ,
--- NOTE | 2020-06-03 10:54 | MRI_ITS ---
STUDY: MR LEFT HIP ARTHROGRAPHY REASON FOR EXAM: Left hip pain for 18 months, no specific injury. TECHNIQUE: Standardized fat and water weighted pulse sequences were obtained in all 3 orthogonal planes after intra-articular instillation of dilute Dotarem. COMPARISON: Radiographs 12/18/2019. FINDINGS: Normal hip joint without articular joint space narrowing. Normal acetabulum. There is a tear of the anterosuperior labrum (T1 sagittal images 15, 16) and anterior aspect of the superior labrum (T1 coronal images 13, 14). Normal femoral head. Normal femoral neck and intratrochanteric region. There is mild peritendinitis of the gluteus medius tendon (T2 coronal image 7) and gluteus minimus tendon (T2 coronal image 11). Normal iliopsoas tendon. There is no trochanteric, iliopsoas or iliopectineal bursitis. Normal superior and inferior pubic rami. Normal ischial tuberosity. Normal origin of the hamstring tendons. Normal visualized iliac wing, sacroiliac joint, and sacral ala. Normal visualized soft tissue structures of the pelvis. MRI/Lower Ext/Jt Only/W Contrast IMPRESSION: Labral tear. Mild peritendinitis of the gluteus medius and minimus tendons. No demonstrated avascular necrosis. Electronically Signed: Darian Orourke MD at 13:27 EDT Tel , Service support ,
== END ==
PROVIDERS: PCP Internal Medicine; Referring Provider Orthopaedic Surgery; Visit Provider Orthopaedic Surgery
DX: M25.552 Pain in left hip (principal)
CPT/HCPCS: 27093; 73525; 73722; A9575; Q9967

== ENCOUNTER 2020-12-02 18:00 | Outpatient (RCR) | payer OTHER, SELFPAY ==
[2020-07-03 08:41] VITALS: BMI 40.0
--- NOTE | 2020-09-28 09:43 | HP.PTEVAL ---
Patient's Visit Information JAKE COOPER is a 50 year old F referred to Physical Therapy by Out of Town Doctor with a diagnosis of L hip scope with labral repair. Date of Evaluation: 09/24/20 Physical Therapist: Mehrdad Shoemaker DPT - Visit Plan Frequency: 2x /Week Duration: 3 Months Plan: Start with ROM as protocol allows. Instruct in gait patterns, pelvic stability. Progress per protocol. - Subjective Pt. is here today for her initial evaluation with diagnosis of L hip scope with labral repair, decompression of paralabral cyst and chondraplasty. Pt. has been having increased pain for a few years. She trialed conservative care, but seemed to increase her symptoms. Pt. did eventually have surgery, DOS 09/10/20. Pt. arrives today on bilateral axillary crutches. Pt. reports overall very minimal pain, no N/T. 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 Pt. is sleeping well. She is doing her HEP as prescribed at home without limitations. Pt. is hopeful to get back to all work and recreational walking without limitations. - Pain L hip Pain Intensity (Out of 10): 0 Pain Intensity Range: 0, 2 - Objective POSTURE: Pt. has slight flexed posture in stance. Pt. tends to perform TTWB instead of FFWB. Improved with VCing. PALPATION: Pt. has tenderness at hip flexor muscle group, no issues else where. NEURO: normal throughout, normal sensation, normal DTR. ROM: flexion 60deg (mild increase NW), ER 20deg mild increase NW, IR did not test, extension to 0deg. MMT: RLE- 5/5 throughout; L LE did not test. GAIT: Pt. ambulating with B crutches. She needed education on FFWB rather than holding hip into flexion. Pt. maintains proper WBing otherwise. Pt. was able to ambulate with proper WBing after instruction. - Goals Goal 1:: LTG: Pt. to be I with HEP. Goal Time Frame: 4-6 Weeks Goal 2:: LTG: Pt. to have full AROM of L hip. Goal Time Frame: 4-6 Weeks Goal 3:: LTG: Pt. to have increasd L hip strength to 4+/5 throughout. Goal Time Frame: 8-12 Weeks Goal 4:: LTG: Pt. to ambulate with normal gait pattern with out AD. Goal Time Frame: 4-6 Weeks Goal 5:: LTG: Pt. to progress back to work related activities without increase in symptoms. Goal Time Frame: 8-12 Weeks - Rehabilitation Potential Physical Therapy Diagnosis: Pt. has signs and symtoms consistent with L hip scope with labral repair. Pt. has subsequent hypombolity, weakness, and difficulty walking. Pt. would benefit from PT to initially work on ROM, progression of gait then progressing to strengthening. Rehabilitation Potential: Excellent - Anticipated Interventions Patient/Client Instruction: Educate patient on: Condition, Plan of Care, Risk Factors, Benefits of Fitness Program For the Purpose of:: To facilitate caregiver knowledge, To improve self management, To prevent re-injury, To improve ability to perform tasks related to life management, To improve tolerance to ADL's Therapeutic Exercise to Include: Strength training, Power training, Endurance training, Body mechanics, Postural training, Flexibilty training, Gait and locomotor training, Passive ROM, Active ROM For the Purpose of:: To decrease pain, To decrease swelling/inflammation, To increase ROM, To improve nutrient delivery to tissue, To increase oxygenation perfusion, To improve muscle performance and motor function, To improve gait and locomotor functions, To improve health of tissue, To decrease soft tissue restriction, To increase flexibility/ROM Manual Therapy Techniques to Include: Mobilization, Passive ROM, Soft tissue mobilization For the Purpose of:: To decrease pain, To decrease swelling/inflammation, To increase ROM, To improve nutrient delivery to tissue, To increase oxygenation perfusion IF ES: Yes Cryotherapy (ice pack, ice massage): Yes For the Purpose of:: To decrease pain, To increase ROM, To improve nutrient delivery to tissue, To increase oxygenation perfusion Thank you for the opportunity to evaluate your patient. For Medicare and Medicare HMO plans, please review the plan of care and approve it. It will need to be FAXED BACK to us at [phone] for Medicare purposes. For Medicare only, by signing this I certify the plan of care. Please let me know if there are questions or concerns regarding this plan of care. Physician Signature: Date:
== END 2020-12-02 19:00 | disposition home or self-care (01) ==
LOC: PT 18:00
PROVIDERS: PCP Internal Medicine; Referring Provider Orthopaedic Surgery Sports Medicine; Visit Provider Orthopaedic Surgery Sports Medicine
DX: M24.152 Other articular cartilage disorders, left hip (principal); M25.852 Other specified joint disorders, left hip
CPT/HCPCS: 97110; 97161

== ENCOUNTER → 2021-05-12 16:08 | Outpatient (CLI) | payer OTHER, SELFPAY ==
[2021-02-11 08:18] VITALS: BMI 41.7
--- NOTE | 2021-05-12 16:09 | BI_ITS ---
MAMMOGRAPHY - BILATERAL SCREENING REASON FOR EXAM: Female, 51 years old. Routine annual screening examination. PERTINENT HISTORY: Non-contributory. TECHNIQUE: Digital bilateral breast babar (3D mammographic acquisition) in the CC and MLO projections. 2-D mediolateral oblique (MLO) and craniocaudad (CC) views of both breasts were obtained. CAD: Full Field Digital Mammography with Computer Added Detection was performed. COMPARISON: Comparison is made with prior study dated 11/21/2019 and 11/15/2018. FINDINGS: Breast Composition: There are scattered areas of fibroglandular density. There are no dominant masses or suspicious calcifications. 7.5 mm x 5.8 mm well-defined nodule in the central upper portion of the left breast. Correlation with ultrasound is recommended. No other significant abnormalities are identified. BI/SCRN MAMM (CAD)W/BABAR BILAT IMPRESSION: 7.5 mm x 5.8 mm well-defined nodule in the central upper portion of the left breast. Correlation with ultrasound is recommended. ASSESSMENT CATEGORY: BIRADS Category 0: Incomplete. Need additional imaging evaluation. A letter regarding these results will be sent to the patient by the facility within 30 days. Approximately 10% of breast cancers are not detected by mammography. A normal mammogram should not delay biopsy of a clinically suspicious abnormality. [id number] Electronically Signed: Malcom Rachel MD at 8:10 EDT , Service support ,
== END ==
PROVIDERS: PCP Internal Medicine; Referring Provider Nurse Practitioner Women's Health; Visit Provider Nurse Practitioner Women's Health
DX: Z12.31 Encounter for screening mammogram for malignant neoplasm of breast (principal)
CPT/HCPCS: 77063; 77067

== ENCOUNTER 2021-05-18 08:30 | Outpatient (RCR) | payer OTHER, SELFPAY ==
[2021-02-11 08:18] VITALS: BMI 41.7
--- NOTE | 2021-05-20 07:48 | HP.PTEVAL ---
Patient's Visit Information JAKE COOPER is a 51 year old F referred to Physical Therapy by Dr. Jony Dean MD with a diagnosis of L hip bursitis. Date of Evaluation: 05/06/21 Physical Therapist: Mehrdad Shoemaker DPT - Visit Plan Frequency: 2x /Week Duration: 6 Weeks Plan: Start with light glute strengthening, working on control/stability in pain free ranges. 2) add in light glute med, hip ER and glute mas stretching. 3)add in core, quad, HS strengthening. May use US, manual techniques, DFM to glute max/med/min. - Subjective Pt. is here today for her initial evaluation with diagnosis of L hip bursitis. Pt. is known to this PT. She is ~1 year out of L hip labral repair. Pt. is now having some lateral and posterior/lateral hip pain. She did see physician who reports she has a glute medius and minimus tear. Pt. has increased pain with standing, walking, stairs, and squatting. Decreased pain: sitting, resting. Pt. has not been taking any pain medications to reduce symptoms. Pt. has increased pain in PMs after work, but days she does less, she has reduced pain. Pt. denies N/T in either LE. 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 She is hopeful to reduce her symptoms in order to get back to all recreational and work related activities. - Pain L posterior/lateral hip Pain Intensity (Out of 10): 2 Pain Intensity Range: 0, 7 - Objective POSTURE: Pt. general flexed posture with increased lumbar lordosis. Pt. has normal wt. shift between BLEs. Pt. has normal iliac crest heights. PALPATION: Pt. has tenderness at L greater trochanter, greatest at posterior aspect and into glute muscle bellies. Pt. has no IT band pain and no lumbar spine pain. NEURO: Pt. has normal sensation and normal DTR of BLEs. ROM: LUMBAR SPINE: flexion min loss NE, ext mod loss NE, SB min loss NE, rotation bilat min loss NE. L hip: flexion 120deg NE, abd 45deg NE, ER 75deg NE, IR 30deg mild increase in groin pain. MMT: RLE: 5/5 throughout, hip flexion 4/5, abd 4+/5. LLE: ankle 5/5 throughout; knee: 5/5 throughout; hip: flexion 4/5, abd 4/5 mild increase NW, ext 4/5 mild increase NW. Core strength- poor+. GAIT: Pt. ambulates well. She has increased lateral hip sway bilaterally. She has normal step length. STAIRS: Pt. is able to complete with 1 HR, but does have increased pain during L stance phase with both ascending and descending. - Goals Goal 1:: LTG: Pt. to be I with HEP. Goal Time Frame: 2-4 Weeks Goal 2:: STG: Pt. to sleep throughout the night without increase in symptoms. Goal Time Frame: 2 Weeks Goal 3:: LTG: PT. to have increased strength of L hip musculature to at least 4+/5 throughout. Goal Time Frame: 2-4 Weeks Goal 4:: STG: Pt. to be able to walk with normalized gait pattern with 0-1/10 pain in L hip for 1000'. Goal 5:: LTG: Pt. to be able to complete full work schedule with 0-2/10 pain in L lateral/posterior hip. Goal Time Frame: 4-6 Weeks - Rehabilitation Potential Physical Therapy Diagnosis: Pt. has signs and symptoms consistent with L hip bursitis and glute medius and minimus tears. Pt. has some ROM restrictions and marked weakness. She would benefit from PT to work on the above limitations, working towards pain free mobility. Rehabilitation Potential: Good - Anticipated Interventions Patient/Client Instruction: Educate patient on: Condition, Plan of Care, Risk Factors, Benefits of Fitness Program For the Purpose of:: To improve health and function, To foster healthy habits, To improve decision making, To facilitate caregiver knowledge, To improve self management, To prevent re-injury, To improve ability to perform tasks related to life management Therapeutic Exercise to Include: Strength training, Power training, Body mechanics, Postural training, Flexibilty training, Gait and locomotor training, Passive ROM, Active ROM, Dynamic Lumbar Stabilization For the Purpose of:: To decrease pain, To decrease swelling/inflammation, To increase ROM, To improve nutrient delivery to tissue, To increase oxygenation perfusion, To improve muscle performance and motor function, To improve ability to perform ADL's, To improve health of tissue, To decrease soft tissue restriction, To increase flexibility/ROM, To improve safety with gait Manual Therapy Techniques to Include: Mobilization, Functional dry needling, Soft tissue mobilization For the Purpose of:: To decrease pain, To increase ROM, To improve nutrient delivery to tissue, To increase oxygenation perfusion, To improve muscle performance and motor function, To improve health of tissue, To decrease soft tissue restriction, To increase flexibility/ROM, To improve endurance, To improve balance IF ES: Yes Cryotherapy (ice pack, ice massage): Yes Thermo therapy (hot pack): Yes Ultrasound (thermal/non thermal): Yes For the Purpose of:: To decrease pain, To decrease swelling/inflammation, To increase ROM, To improve nutrient delivery to tissue Thank you for the opportunity to evaluate your patient. For Medicare and Medicare HMO plans, please review the plan of care and approve it. It will need to be FAXED BACK to us at [phone] for Medicare purposes. For Medicare only, by signing this I certify the plan of care. Please let me know if there are questions or concerns regarding this plan of care. Physician Signature: Date:
--- NOTE | 2021-09-27 14:48 | HP.PT.NRP ---
JAKE COOPER was seen in my office for initial evaluation on 05/06/21. The following Plan of Care was established for this patient: Initial Frequency: 2x /Week Initial Duration: 6 Weeks Patient/Client Instruction: Educate patient on: Condition, Plan of Care, Risk Factors, Benefits of Fitness Program For the Purpose of:: To improve health and function, To foster healthy habits, To improve decision making, To facilitate caregiver knowledge, To improve self management, To prevent re-injury, To improve ability to perform tasks related to life management Therapeutic Exercise to Include: Strength training, Power training, Body mechanics, Postural training, Flexibilty training, Gait and locomotor training, Passive ROM, Active ROM, Dynamic Lumbar Stabilization For the Purpose of:: To decrease pain, To decrease swelling/inflammation, To increase ROM, To improve nutrient delivery to tissue, To increase oxygenation perfusion, To improve muscle performance and motor function, To improve ability to perform ADL's, To improve health of tissue, To decrease soft tissue restriction, To increase flexibility/ROM, To improve safety with gait Manual Therapy Techniques to Include: Mobilization, Functional dry needling, Soft tissue mobilization For the Purpose of:: To decrease pain, To increase ROM, To improve nutrient delivery to tissue, To increase oxygenation perfusion, To improve muscle performance and motor function, To improve health of tissue, To decrease soft tissue restriction, To increase flexibility/ROM, To improve endurance, To improve balance IF ES: Yes Cryotherapy (ice pack, ice massage): Yes Thermo therapy (hot pack): Yes Ultrasound (thermal/non thermal): Yes For the Purpose of:: To decrease pain, To decrease swelling/inflammation, To increase ROM, To improve nutrient delivery to tissue This patient was last seen in our office 05/20/21. Pertinent comments regarding their Physical therapy will appear below: Pt. was seen for her L hip pain. She was treated for 3 visits. She has not been seen in several months and will be DC from PT at this point in time. At this point I will be discontinuing this patient from physical therapy. I would be happy to see this patient again in the future if found appropriate by the physician. Thank you! Mehrdad Shoemaker, DPT Balance/Gait/Functional tests - Balance/Special Test Scores Lower Extremity Functional Score: 42
== END 2021-05-18 19:00 | disposition home or self-care (01) ==
LOC: PT 08:30
PROVIDERS: PCP Internal Medicine; Referring Provider Orthopaedic Surgery Sports Medicine; Visit Provider Orthopaedic Surgery Sports Medicine
DX: M70.62 Trochanteric bursitis, left hip (principal)
CPT/HCPCS: 97110; 97161

== ENCOUNTER → 2021-05-18 11:09 | Outpatient (CLI) | payer OTHER, SELFPAY ==
[2021-02-11 08:18] VITALS: BMI 41.7
--- NOTE | 2021-05-18 11:12 | US_ITS ---
STUDY: ULTRASOUND BREAST - LEFT REASON FOR EXAM: Female, 51 years old. Abnormal screening mammogram. TECHNIQUE: Axial and longitudinal images of the LEFT breast were performed with a high resolution ultrasound transducer. # OF IMAGES: 14 COMPARISON: Comparison is made with prior mammogram dated 05/12/2021. FINDINGS: LEFT Breast: There is a 6 mm x 4 mm x 3 mm cyst at the 4 o''clock position of the breast at 3 cm from the nipple. This also evidence of retroareolar ductal dilatation. US/Breast Limited Unilateral IMPRESSION: 6 mm x 4 mm x 3 mm cyst at the 4 o''clock position of the breast at 3 cm from the nipple. Retroareolar ductal dilatation. ASSESSMENT CATEGORY: BIRADS Category 2: Benign. A letter regarding these results will be sent to the patient by the facility within 30 days. Electronically Signed: Malcom Rachel MD at 11:42 EDT , Service support ,
== END ==
PROVIDERS: PCP Internal Medicine; Referring Provider Nurse Practitioner Women's Health; Visit Provider Nurse Practitioner Women's Health
DX: N63.25 Unspecified lump in the left breast, overlapping quadrants (principal)
CPT/HCPCS: 76642

== ENCOUNTER 2021-11-05 09:42 | Outpatient (CLI) | payer OTHER, SELFPAY ==
--- NOTE | 2021-11-05 09:45 | RAD_ITS ---
STUDY: X-RAY - LUMBAR SPINE REASON FOR EXAM: Female, 51 years old. BACK PAIN TECHNIQUE: 3 view(s) of the lumbar spine were obtained. COMPARISON: Comparison is made with prior study dated 02/05/2019. FINDINGS: There is an exaggerated lumbar lordosis. There is no substantial scoliosis. There is a normal alignment of the vertebrae. Normal vertebral bodies and endplates. Moderate degree of disc space narrowing at the L4-L5 and L5-S1 levels. This is unchanged. The soft tissue structures are unremarkable. RAD/Lumbar Spine 2 or 3 Views IMPRESSION: Degenerative changes of the spine, as detailed above. Exaggerated lumbar lordosis. Electronically Signed: Malcom Rachel MD at 10:55 EST , Service support ,
== END 2021-11-05 23:59 | disposition short-term general hospital (02) ==
LOC: RAD 09:44
PROVIDERS: PCP Internal Medicine; Referring Provider Anesthesiology Pain Medicine; Visit Provider Anesthesiology Pain Medicine
DX: M51.37 Other intervertebral disc degeneration, lumbosacral region (principal)
CPT/HCPCS: 72100

== ENCOUNTER 2021-11-22 17:11 | Outpatient (CLI) | payer OTHER, SELFPAY ==
--- NOTE | 2021-11-22 17:23 | MRI_ITS ---
ACR Level 3 findings have been noted. An addendum which confirms receipt of the report will follow. STUDY: MRI LUMBAR SPINE WITHOUT CONTRAST REASON FOR EXAM: Female, 51 years old. RADICULOPATHY low back pain and across SI area, known left gluteal tear, recent left labral repair left hip TECHNIQUE: Standardized fat and water weighted pulse sequences were obtained in the sagittal and axial following administration of . COMPARISON: 05 February 2019 FINDINGS: T12-L1: Normal endplates. Normal disc height, hydration and morphology. Normal bilateral facet joints. Normal central canal and bilateral lateral recesses. Normal bilateral intervertebral neural foramina. Normal lumbar lordosis with grade 1 degenerative L4-L5 anterolisthesis of less than 2 mm. There is no substantial scoliosis. Normal conus medullaris that terminates at the L1. L1-2: Normal endplates. Normal disc height, hydration and morphology. Normal bilateral facet joints. Normal central canal and bilateral lateral recesses. Normal bilateral intervertebral neural foramina. L2-3: Normal endplates. Normal disc height, hydration and morphology. Normal bilateral facet joints. Normal central canal and bilateral lateral recesses. Normal bilateral intervertebral neural foramina. L3-4: Normal endplates. Normal disc height, hydration and morphology. Normal bilateral facet joints. Normal central canal and bilateral lateral recesses. Normal bilateral intervertebral neural foramina. L4-5: Degenerated endplates. Decreased disc height, altered hydration and degenerative morphology. Degenerated bilateral facet joints. Normal central canal and bilateral lateral recesses. Normal bilateral intervertebral neural foramina. L5-S1: Active edema like signal endplate and subchondral marrow change. Decreased disc height, increased hydration and degenerative morphology with intravertebral disc herniations with the inferior L5 endplate. Facets are degenerated bilaterally. Normal visualized sacral ala. Normal visualized paraspinous soft tissue structures. MRI/Spine Lumbar (Routine) IMPRESSION: 1. Abnormal L5-S1 discs, endplates and subchondral marrow. Differential possibilities are early discitis osteomyelitis versus active degeneration. Recommend correlation with inflammatory laboratory parameters and short-term follow-up with contrast. 2. Patent canal, no neural compression. Electronically Signed: Radha Orozco MD at 18:03 EST ,
== END 2021-11-22 23:59 | disposition short-term general hospital (02) ==
LOC: MRI 17:14
PROVIDERS: PCP Internal Medicine; Referring Provider Anesthesiology Pain Medicine; Visit Provider Anesthesiology Pain Medicine
DX: M54.16 Radiculopathy, lumbar region (principal)
CPT/HCPCS: 72148

== ENCOUNTER 2021-12-20 11:15 | Outpatient (CLI) | payer OTHER, SELFPAY ==
--- NOTE | 2021-12-20 12:15 | MRI_ITS ---
History: F/U to abn. MRI, discitis Technique: T1 MR imaging of the lumbar spine performed with and without contrast enhancement in axial and sagittal planes as well as sagittal STIR sequence. 22ml dotarem Comparison: November 22, 2021 Findings: The disc space narrowing at L4-5 and L5-S1 with associated Modic type II endplate changes again seen. No abnormal contrast enhancement along the endplates to suggest osteomyelitis. Enhancement of the L5-S1 disc is noted as well as along the anterior paraspinal soft tissues suggestive of inflammatory process. No soft tissue abscess suggested. No epidural collection. No significant spinal or neuroforaminal stenosis. IMPRESSION: Abnormal contrast enhancement of the L5-S1 disc and adjacent prevertebral soft tissues suggestive of inflammatory process. No evidence of osteomyelitis. at 1343 Reported and signed by: Buddy Goddard MD Electronically Signed: Buddy Goddard MD at 13:42 EST , MRI/Spine Lumbar WITH Contrast
== END 2021-12-20 23:59 | disposition home or self-care (01) ==
LOC: MRI 11:15
PROVIDERS: PCP Internal Medicine; Visit Provider Anesthesiology Pain Medicine
DX: M46.40 Discitis, unspecified, site unspecified (principal)
CPT/HCPCS: 72149; A9575

== ENCOUNTER 2021-12-24 14:50 | Outpatient (CLI) | payer OTHER, SELFPAY ==
[2021-12-24 15:34] LABS: Erythrocyte Sedimentation Rate 15 mm/hr (0-30)
[2021-12-24 15:42] LABS: CRP 5.57 mg/L (0.0-3.0)
== END 2021-12-24 23:59 | disposition home or self-care (01) ==
LOC: LAB 14:52
PROVIDERS: PCP Internal Medicine; Referring Provider Internal Medicine; Visit Provider Internal Medicine
DX: M46.47 Discitis, unspecified, lumbosacral region (principal)
CPT/HCPCS: 85652; 86140

== ENCOUNTER 2022-01-07 09:05 | Outpatient (CLI) | payer OTHER, SELFPAY ==
[2022-01-07 15:30] LABS: Absolute Lymphocyte Count 2.44 X10^3/uL (0.83-4.51); Absolute Neutrophil Count 4.3 X10^3/uL (2.0-7.7); Basophil# 0.06 X10^3/uL; Basophil% 0.8 % (0-1); Eosinophil# 0.21 X10^3/uL; Eosinophils% 2.8 % (0-5); Hematocrit 42.9 % (37-47); Hemoglobin 14.3 g/dL (12.0-15.0); Lymphocyte # 2.44 X10^3/ul (0.83-4.51); Lymphocyte % 32.9 % (19-41); Mean Corp Hgb Conc 33.3 g/dL (32-36); Mean Corpuscular Hgb 29.2 pg (27.0-32.0); Mean Corpuscular Volume 87.6 fL (81-99); Mean Platelet Vol. 10.4 fl (6.2-12.0); Monocyte# 0.36 X10^3/uL; Monocyte% 4.9 % (0-10); NRBC Flagged by Analyzer 0 % (0-5); Neutrophil # 4.33 X10^3/uL (2.7-7.7); Neutrophil % 58.5 % (47-70); Platelet Count 274 K/mm3 (150-450); RBC Distribution Width CV 12.4 % (11.6-14.6); RBC Distribution Width SD 40.2 fl (35.1-43.9); White Blood Count 7.4 K/mm3 (4.4-11.0)
[2022-01-07 15:49] LABS: Erythrocyte Sedimentation Rate 13 mm/hr (0-30)
[2022-01-07 15:59] LABS: CRP 6.83 mg/L (0.0-3.0)
== END 2022-01-07 23:59 | disposition home or self-care (01) ==
LOC: LAB 09:06
PROVIDERS: PCP Internal Medicine; Referring Provider Orthopaedic Surgery; Visit Provider Orthopaedic Surgery
DX: M46.47 Discitis, unspecified, lumbosacral region (principal)
CPT/HCPCS: 85025; 85652; 86140

== ENCOUNTER 2022-01-24 09:21 | Outpatient (CLI) | payer OTHER, SELFPAY ==
[2022-01-24 10:54] LABS: Anion Gap 5 (5-15); BUN 18 mg/dL (7-18); BUN/Creat Ratio 22.1 RATIO (10-20); Calcium,Total 9.4 mg/dL (8.5-10.1); Chloride 104 mmol/L (98-107); Creatinine, Serum 0.82 mg/dL (0.55-1.02); EST Glomerular Filtration Rate 79 mL/min (>60); Est Glom Filt Rate - Afr Amer 95 mL/min (>60); Glucose 90 mg/dL (74-106); Potassium 3.9 mmol/L (3.5-5.1); Sodium Level 138 mmol/L (136-145)
== END 2022-01-24 23:59 | disposition home or self-care (01) ==
LOC: LAB 09:23
PROVIDERS: PCP Internal Medicine; Visit Provider Internal Medicine
DX: I10 Essential (primary) hypertension (principal)
CPT/HCPCS: 36415; 80048

== ENCOUNTER 2022-02-07 08:51 | Outpatient (CLI) | payer OTHER, SELFPAY ==
[2022-02-07 09:03] VITALS: BP 136/79; PULSE 82; RESP 16; TEMP 36.4; O2SAT 99; BMI 40.3
--- NOTE | 2022-02-07 10:35 | RAD_ITS ---
INDICATION: PICC LINE PLACEMENT EXAMINATION/TECHNIQUE: X-RAY - XR Chest 1 View COMPARISON: None. FINDINGS: LINES/DEVICES: Right upper extremity PICC visualizes catheter tip at the SVC/RA junction. LUNGS: No consolidation, edema or effusion. No pneumothorax. MEDIASTINUM AND CARDIOVASCULAR STRUCTURES: Cardiac silhouette not enlarged. Central airways and mediastinal contour are unremarkable. BONES AND SOFT TISSUES: Unremarkable. RAD/CXR for Line Placement IMPRESSION: Right upper extremity PICC visualizes catheter tip at the SVC/RA junction. Catheter tip in good position and ready for immediate use. Electronically Signed: Osei Sanders MD at 10:53 EDT ,
[2022-02-07 11:00] VITALS: BP 159/81; PULSE 85; RESP 16; O2SAT 100
--- NOTE | 2022-02-07 11:06 | NURSING ---
gauze with tegaderm over insertion site due to bleeding. Infusion nurse to apply CHG dressing in one hour .
[2022-02-07 11:13] VITALS: BP 133/74; PULSE 65; RESP 16; TEMP 36.4; O2SAT 99
--- NOTE | 2022-02-07 11:21 | NURSING ---
1100 PICC LINE IS IN AND CONFIRMED BY CXR, TRIPLE CHECKED BY PICC NURSE DUE TO INCREASE IN PT ANXIETY AND CHEST DISCOMFORT, VS TAKEN PT DID NOT WANT TO GO TO ER TO BE CHECKED OUT, REPORT GIVEN TO KULDEEP Canas RN, [facility], PT WILL LET NURSE KNOW IF THERE ARE ANY CHANGES OR WORSENING PAIN.
[2022-02-07 14:55] VITALS: BP 111/64; PULSE 68; RESP 16; TEMP 36.8; O2SAT 96
== END 2022-02-07 23:59 | disposition home or self-care (01) ==
PROVIDERS: PCP Internal Medicine; Referring Provider Internal Medicine Infectious Disease; Visit Provider Internal Medicine Infectious Disease
DX: M46.47 Discitis, unspecified, lumbosacral region (principal)
CPT/HCPCS: 96365; 96366; 96367; 36569; 71045; J7040; J7050; A4216; J0696

== ENCOUNTER 2022-02-09 08:21 | Outpatient (RCR) | payer OTHER, SELFPAY ==
[2022-02-09 09:08] LABS: Anion Gap 7 (5-15); BUN 19 mg/dL (7-18); BUN/Creat Ratio 23.5 RATIO (10-20); Calcium,Total 9.4 mg/dL (8.5-10.1); Chloride 102 mmol/L (98-107); Creatinine, Serum 0.81 mg/dL (0.55-1.02); EST Glomerular Filtration Rate 79 mL/min (>60); Erythrocyte Sedimentation Rate 23 mm/hr (0-30); Est Glom Filt Rate - Afr Amer 96 mL/min (>60); Glucose 102 mg/dL (74-106); Sodium Level 138 mmol/L (136-145)
[2022-02-09 09:09] LABS: Hematocrit 40.3 % (37-47); Hemoglobin 13.5 g/dL (12.0-15.0); Mean Corp Hgb Conc 33.5 g/dL (32-36); Mean Corpuscular Hgb 29.2 pg (27.0-32.0); Mean Platelet Vol. 10.4 fl (6.2-12.0); Platelet Count 240 K/mm3 (150-450); RBC Distribution Width SD 41.2 fl (35.1-43.9); Red Blood Count 4.63 M/mm3 (4.2-5.4); White Blood Count 7.6 K/mm3 (4.4-11.0)
[2022-02-09 09:12] LABS: Vancomycin, Trough Level 17.3 ug/mL (5.0-15.0)
== END 2022-02-09 18:00 | disposition home or self-care (01) ==
LOC: LAB 08:21
PROVIDERS: PCP Internal Medicine; Visit Provider Internal Medicine Infectious Disease
DX: M46.46 Discitis, unspecified, lumbar region (principal)
CPT/HCPCS: 80048; 80202; 85027; 85652

== ENCOUNTER → 2022-02-11 | Outpatient (CLI) | payer OTHER, SELFPAY ==
--- NOTE | 2022-02-11 12:30 | RAD_ITS ---
INDICATION: PICC LINE RE-POSITION EXAMINATION/TECHNIQUE: X-RAY - XR Chest 1 View COMPARISON: Chest x-ray obtained on 02/07/2022. FINDINGS: LINES/DEVICES: Right upper extremity PICC visualized with catheter tip in the distal SVC. LUNGS: No consolidation, edema or effusion. No pneumothorax. MEDIASTINUM AND CARDIOVASCULAR STRUCTURES: Cardiac silhouette not enlarged. Central airways and mediastinal contour are unremarkable. BONES AND SOFT TISSUES: Unremarkable. RAD/CXR for Line Placement IMPRESSION: Right upper extremity PICC visualized with catheter tip in the distal SVC. Electronically Signed: Osei Sanders MD at 13:08 EDT ,
--- NOTE | 2022-02-11 12:40 | RAD_ITS ---
INDICATION: PICC LINE RE-POSITION #2 EXAMINATION/TECHNIQUE: X-RAY - XR Chest 1 View COMPARISON: Chest x-ray obtained same day. FINDINGS: LINES/DEVICES: Right upper extremity PICC visualized with catheter tip pulled approximately 1 cm in comparison to the prior study. LUNGS: No consolidation, edema or effusion. No pneumothorax. MEDIASTINUM AND CARDIOVASCULAR STRUCTURES: Cardiac silhouette not enlarged. Central airways and mediastinal contour are unremarkable. BONES AND SOFT TISSUES: Unremarkable. RAD/CXR for Line Placement IMPRESSION: Right upper extremity PICC visualized with catheter tip pulled approximately 1 cm in comparison to the prior study. Electronically Signed: Osei Sanders MD at 13:10 EDT Reading Location ID and State: [facility] / [place] Tel , Service support ,
--- NOTE | 2022-02-11 13:36 | NURSING ---
Pt complained of not feeling right, and says she can feel the PICC in her chest when she flushes and had echo to verify PICC tip that was placed on 02/07. That echo suggests that the PICC tip is in the RT atrium, despite previous confirmation and xray. Retracted PICC to 3 cm exterior and had new images taken. PICC sits in SVC, just above CAJ. Pt is anxious about placement and treatment. Provided reassurance. If Pt continues to have issues or concerns, please call [facility] and request followup.
== END | disposition home or self-care (01) ==
LOC: RAD 11:02
PROVIDERS: PCP Internal Medicine; Visit Provider Internal Medicine Infectious Disease
DX: T82.524A Displacement of infusion catheter, initial encounter (principal)
CPT/HCPCS: 71045

== ENCOUNTER 2022-03-12 10:15 | Emergency (ER) | payer OTHER, SELFPAY ==
[2022-03-12 10:16] VITALS: BP 139/97; PULSE 106; RESP 14; TEMP 37.4; O2SAT 99; BMI 41.9
--- NOTE | 2022-03-12 10:32 | EDS_ITS ---
HPI History of Present Illness Chief Complaint: General Illness Informant: patient Onset/Context/Timing Onset: Today Context: Sudden Onset Quality: chills, shaking Location: diffuse Worsened by: nothing Relieved by: nothing Associated Symptoms Associated Symptoms: dry heaves, back and body aches are ongoing, anxiety Narrative Narrative: History of lower lumbar discitis, currently on ABX--oral doxy and cefdinir?--and follows with Dr. Harrington. Also chronic left hip pain. Reports fairly sudden onset of chills, shakes, dry heaves, and worse aches since this AM. 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 [facility] Medical History Abdominal pain Back problem Change in bowel habit Discitis of lumbosacral region Family history of heart disease Frequent headaches Hypertension Left hip pain PCOS (polycystic ovarian syndrome) Home Medications multivitamin 1 cap PO DAILY 11/26/19 [History Last Taken 02/07/22 08:00] turmeric root extract 500 mg capsule 1,500 mg PO DAILY 12/18/19 [History Last Taken 02/06/22 08:00] ascorbic acid (vitamin C) 500 mg capsule 500 mg PO DAILY 03/24/20 [History Last Taken 02/07/22 08:00] cholecalciferol (vitamin D3) 50 mcg (2,000 unit) capsule 50 mcg PO DAILY 03/24/20 [History Last Taken 02/07/22 08:00] ibuprofen 800 mg tablet 800 mg PO TID PRN 12/22/21 [History Last Taken 02/06/22 13:00] omeprazole 20 mg capsule,delayed release 20 mg PO DAILY #90 cap 01/11/22 [Rx Last Taken 02/07/22 08:00] triamterene 37.5 mg-hydrochlorothiazide 25 mg tablet 1 tab PO QAM #90 tab 01/25/22 [Rx Last Taken 02/07/22 08:00] Allergy/AdvReac Type Severity Reaction Status Date / Time No Known Allergies Allergy Verified 03/12/22 10:18 Family History Grandmother Diabetes type 2 Aunt Diabetes type 2 Other Anxiety and depression Surgical History H/O section History of hip surgery Social History number of children: 1 current occupational status: employed 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 Smoking Status: Former smoker Tobacco: How many years used: 8 alcohol intake: current alcohol intake frequency: holidays/special occasions only substance use type: does not use caffeine: Yes Type: coffee Number of servings: 2 what type of physical activity do you participate in: walking frequency: 3-4 times per week seatbelt use: sometimes do you feel safe at home: Yes additional social history: Single ROS ROS ED Constitutional Constitutional ED: Reports chills Eyes Eyes: Denies change in vision ENT ENT ED: Denies ear pain Cardiovascular Cardiovascular: Denies chest pain Respiratory/Chest Respiratory/Chest: Denies dyspnea Gastrointestinal Gastrointestinal: Reports nausea; Denies abdominal pain or vomiting Genitourinary Genitourinary ED: Denies dysuria Musculoskeletal Musculoskeletal: Reports arthralgias, back pain and myalgias Integumentary Denies rash Neurologic Neurologic: Denies headache(s) Psychiatric Psychiatric: Reports anxiety Endocrine Endocrinology: Denies polyuria Allergic/Immunologic Allergic/Immunologic ED: Denies urticaria EXAM Physical Exam Const Vital Signs: 03/12/22 10:16 03/12/22 10:41 03/12/22 11:42 Temperature 99.3 F H 99.4 F H Temperature Source Temporal Oral Pulse Rate 106 H 92 Respiratory Rate 14 18 Respiratory Effort Normal Respiratory Pattern Normal Blood Pressure 139/97 H 121/74 H Blood Pressure Mean 111 89 Pulse Ox 99 98 Oxygen Delivery Method Room Air Room Air Positive well nourished and well developed General Appearance ED: well developed HEENT Negative for trauma or tenderness Eyes EOMs intact bilaterally Resp normal respiratory effort and clear to auscultation bilaterally Cardio regular rhythm; Negative for regular rate Rate: tachycardic GI normal to inspection, nondistended, normoactive bowel sounds, non-tender and non-distended Palpation: soft Extremity normal to inspection Neuro oriented x3 Sensorium / Orientation: alert Psych Mood & Affect: tearful Skin no rashes or lesions noted MDM MDM MDM Narrative Medical decision making narrative: Patient has an anxiety component but it is congruent with all of her recent medical history. She was treated with a dose of Ativan. New symptoms seem to be chills with shaking. This may be an early infectious syndrome but she has no other focal infectious symptoms. I did check a COVID test and a flu test, and they were negative. Patient received Tylenol for low- grade fever. Repeat vital signs without any other intervention were improved. Patient felt symptomatically better. I advised her that we can check diagnostic testing but given that her symptoms are vague and nonspecific and they are very short-lived, I do not suspect any significant abnormalities in her blood work or chest x-ray. She is on antibiotic coverage and so I do not think she has a UTI. She has no UTI symptoms. After further discussion with the patient, will not obtain any other diagnostic testing. Patient will monitor for new or worsening symptoms and return for any new or worsening issues. Disposition is discharged home Plan will be follow-up with primary care or return if worse. [id number] remedies as needed. Impression #1 chills Impression #2 anxiety Lab Data Attestation: I reviewed the patient's lab results. Discharge Plan Triage Chief Complaint: General Illness ED Provider: Beltran Bethea Dx/Rx/DC Orders Instructions: ED Anxiety Reaction, ED Viral Syndrome (Adult) Prescriptions: No Action multivitamin capsule 1 cap PO DAILY RF: 0 turmeric root extract 500 mg capsule 1,500 mg PO DAILY RF: 0 cholecalciferol (vitamin D3) 50 mcg (2,000 unit) capsule 50 mcg PO DAILY RF: 0 ascorbic acid (vitamin C) 500 mg capsule 500 mg PO DAILY RF: 0 ibuprofen 800 mg tablet 800 mg PO TID PRN (Reason: Muscle Pain) RF: 0 triamterene-hydrochlorothiazid 37.5-25 mg tablet 1 tab PO QAM Qty: 90 RF: 1 omeprazole 20 mg capsule,delayed release(DR/EC) 20 mg PO DAILY Qty: 90 RF: 3 Primary Care Provider: Ulices Bernal Referrals: Ulices Bernal MD [Primary Care Provider] - Disposition Disposition: Home, Self Care Discharge Date/Time: 03/12/22 12:07
[2022-03-12] MEDS: LORazepam 1 MG Tablet PO (10:45)
[2022-03-12] MEDS: Acetaminophen 500 MG Tablet 1000 MG PO (10:45)
[2022-03-12 11:42] VITALS: BP 121/74; PULSE 92; RESP 18; TEMP 37.4; O2SAT 98
== END 2022-03-12 12:07 | disposition home or self-care (01) ==
PROVIDERS: Emergency Provider Emergency Medicine; PCP Internal Medicine; Visit Provider Emergency Medicine
DX: R50.9 Fever, unspecified (principal); F41.9 Anxiety disorder, unspecified; M25.552 Pain in left hip; G89.29 Other chronic pain; M46.47 Discitis, unspecified, lumbosacral region; I10 Essential (primary) hypertension; Z87.891 Personal history of nicotine dependence; Z20.822 Contact with and (suspected) exposure to COVID-19
CPT/HCPCS: 87428; 99282

== ENCOUNTER → 2022-03-17 | Outpatient (CLI) | payer OTHER, SELFPAY ==
[2022-03-17 16:48] LABS: Absolute Lymphocyte Count 2.08 X10^3/uL (0.83-4.51); Absolute Neutrophil Count 4.9 X10^3/uL (2.0-7.7); Basophil# 0.06 X10^3/uL; Basophil% 0.8 % (0-1); Eosinophil# 0.22 X10^3/uL; Eosinophils% 2.8 % (0-5); Hematocrit 38.5 % (37-47); Hemoglobin 13.1 g/dL (12.0-15.0); Lymphocyte # 2.08 X10^3/ul (0.83-4.51); Lymphocyte % 26.6 % (19-41); Mean Corpuscular Hgb 29.8 pg (27.0-32.0); Mean Corpuscular Volume 87.5 fL (81-99); Mean Platelet Vol. 10.9 fl (6.2-12.0); Monocyte% 6.4 % (0-10); NRBC Flagged by Analyzer 0 % (0-5); Neutrophil # 4.94 X10^3/uL (2.7-7.7); Platelet Count 270 K/mm3 (150-450); RBC Distribution Width SD 41.3 fl (35.1-43.9); White Blood Count 7.8 K/mm3 (4.4-11.0)
[2022-03-17 17:06] LABS: Erythrocyte Sedimentation Rate 16 mm/hr (0-30)
[2022-03-17 21:31] LABS: AST(SGOT) 16 U/L (15-37); Alanine Aminotransfer ALT/SGPT 31 U/L (13-56); Albumin, Serum 3.7 g/dL (3.2-5.0); Alkaline Phosphatase 86 U/L (45-117); Anion Gap 6 (5-15); BUN 19 mg/dL (7-18); BUN/Creat Ratio 20.4 RATIO (10-20); CRP 7.42 mg/L (0.0-3.0); Calcium,Total 9.2 mg/dL (8.5-10.1); Chloride 105 mmol/L (98-107); Creatinine, Serum 0.93 mg/dL (0.55-1.02); EST Glomerular Filtration Rate 67 mL/min (>60); Est Glom Filt Rate - Afr Amer 81 mL/min (>60); Globulin 3.6 g/dL (2.2-4.2); Glucose 113 mg/dL (74-106); Potassium 4.1 mmol/L (3.5-5.1); Protein, Total 7.3 g/dL (6.4-8.2); Sodium Level 140 mmol/L (136-145); T4 Free Direct 1.01 ng/dL (0.76-1.46); Thyroid Stim Hormone (TSH) 1.56 uIU/mL (0.358-3.74)
== END | disposition home or self-care (01) ==
LOC: BIMLAB 14:51
PROVIDERS: PCP Internal Medicine; Referring Provider Internal Medicine Infectious Disease; Visit Provider Internal Medicine Infectious Disease
DX: M46.46 Discitis, unspecified, lumbar region (principal)
CPT/HCPCS: 80053; 84439; 84443; 85025; 85652; 86140

== ENCOUNTER → 2022-04-02 | Outpatient (CLI) | payer OTHER, SELFPAY ==
--- NOTE | 2022-04-02 09:15 | MRI_ITS ---
HISTORY: Follow-up for L5-S1 discitis. TECHNIQUE: Multiplanar and multisequence MR images of the lumbar spine were obtained before and after the intravenous administration of 23 mL Dotarem. 147 images. COMPARISON: 12/20/2021, 11/22/2021. FINDINGS: VERTEBRAE: Vertebral body heights maintained. Degenerative bone marrow endplate changes at L4-5 with minimal endplate enhancement. Degenerative bone marrow endplate changes at L5-S1 with decreased mild STIR hyperintense signal of L5-S1 and no significant confluent bone marrow enhancement. ALIGNMENT: No significant anterior or posterior subluxation. SPINAL CANAL: Normal morphology and position of the conus medullaris at the lower L1 level. No gross epidural collection or enhancing intradural extramedullary mass seen. INTERVERTEBRAL DISCS: T12-L1, L1-2, L2-3, L3-4: No significant posterior disc herniation, central canal stenosis, or foraminal narrowing. L4-5: Degenerative loss of intervertebral disc height and T2 signal. Mild disc bulge with facet arthropathy resulting in minimal narrowing of thecal sac. L5-S1: Degenerative loss of intervertebral disc height with decreased STIR hyperintensity. Enhancement of the intervertebral disc again noted. Mild disc bulge with facet arthropathy resulting in no significant central canal stenosis or foraminal narrowing. SOFT TISSUES: Decreased prevertebral edema and enhancement at the L5-S1 level. Mild posterior subcutaneous edema again noted. MRI/Spine Lumbar W/WO Contrast IMPRESSION: Persistent enhancement of the L5-S1 intervertebral disc with decreased STIR signal abnormality of the intervertebral disc, bone marrow, and endplates. Decreased prevertebral edema and enhancement. Mild degenerative disc disease of L4-5 and L5-S1 without significant spinal canal stenosis. Electronically Signed: Valentina Kapadia MD at 9:20 EDT ,
== END | disposition home or self-care (01) ==
LOC: MRI 09:05
PROVIDERS: PCP Internal Medicine; Visit Provider Nurse Practitioner Acute Care
DX: M46.47 Discitis, unspecified, lumbosacral region (principal)
CPT/HCPCS: 72158; A9575

== ENCOUNTER → 2022-04-26 | Outpatient (CLI) | payer OTHER, SELFPAY ==
--- NOTE | 2022-04-26 19:27 | US_ITS ---
STUDY: ULTRASOUND OF THE FEMALE PELVIS - COMPLETE REASON FOR EXAM: Female, 52 years old. BLOATING TECHNIQUE: Endovaginal. Transvaginal US was obtained to better visualized the ovaries. COMPARISON: 05/22/20 FINDINGS: The uterus is anteverted and is in a midline position. The uterus measures 10.1x5.3 cm. There is a Nabothian cyst of the cervix. The endometrium measures 7 mm in thickness, and is hyperechoic. There is no demonstrated endometrial mass. Fibroid visualized. Cervical fibroid measures 10 mm. Uterine fibroid measures 20 mm. I.U.D. - The patient does not have an I.U.D. The right ovary is visualized. The right ovary measures 1.6 cm. There is no right ovarian cyst or ovarian mass. There is no visualized right adnexal mass or complex lesion. There is normal arterial and normal venous vascularity. The left ovary is visualized. The left ovary measures 3.5 cm. 20 mm cyst of the ovary. No follow-up required. There is no visualized left adnexal mass or complex lesion. There is normal arterial and normal venous vascularity. There is no fluid in the cul-de-sac. Urinary bladder volume is 274 cc. US/Pelvic (Non ) IMPRESSION: There are Nabothian cysts of the cervix. Fibroid uterus. There is endometrial thickening. This is abnormal for the patient''s age if she is postmenopausal. Direct visualization is recommended to exclude an underlying mass. Electronically Signed: Nathan Mijares MD at 20:51 EDT ,
--- NOTE | 2022-04-26 19:27 | US_ITS ---
STUDY: ULTRASOUND OF THE FEMALE PELVIS - COMPLETE REASON FOR EXAM: Female, 52 years old. BLOATING TECHNIQUE: Endovaginal. Transvaginal US was obtained to better visualized the ovaries. COMPARISON: 05/22/20 FINDINGS: The uterus is anteverted and is in a midline position. The uterus measures 10.1x5.3 cm. There is a Nabothian cyst of the cervix. The endometrium measures 7 mm in thickness, and is hyperechoic. There is no demonstrated endometrial mass. Fibroid visualized. Cervical fibroid measures 10 mm. Uterine fibroid measures 20 mm. I.U.D. - The patient does not have an I.U.D. The right ovary is visualized. The right ovary measures 1.6 cm. There is no right ovarian cyst or ovarian mass. There is no visualized right adnexal mass or complex lesion. There is normal arterial and normal venous vascularity. The left ovary is visualized. The left ovary measures 3.5 cm. 20 mm cyst of the ovary. No follow-up required. There is no visualized left adnexal mass or complex lesion. There is normal arterial and normal venous vascularity. There is no fluid in the cul-de-sac. Urinary bladder volume is 274 cc. US/Transvaginal Non- IMPRESSION: There are Nabothian cysts of the cervix. Fibroid uterus. There is endometrial thickening. This is abnormal for the patient''s age if she is postmenopausal. Direct visualization is recommended to exclude an underlying mass. Electronically Signed: Nathan Mijares MD at 20:51 EDT ,
== END | disposition home or self-care (01) ==
LOC: US 19:40
PROVIDERS: PCP Internal Medicine; Referring Provider Nurse Practitioner Women's Health; Visit Provider Nurse Practitioner Women's Health
DX: R14.0 Abdominal distension (gaseous) (principal); D25.9 Leiomyoma of uterus, unspecified; N88.8 Other specified noninflammatory disorders of cervix uteri
CPT/HCPCS: 76830; 76856

== ENCOUNTER → 2022-05-06 | Outpatient (CLI) | payer OTHER, SELFPAY ==
[2022-05-06 10:16] LABS: Follicle Stimulating Hormone 3.8 mIU/mL
== END | disposition home or self-care (01) ==
LOC: LAB 09:24
PROVIDERS: PCP Internal Medicine; Referring Provider Obstetrics & Gynecology; Visit Provider Obstetrics & Gynecology
DX: N95.1 Menopausal and female climacteric states (principal)
CPT/HCPCS: 36415; 83001

== ENCOUNTER → 2022-05-12 | Outpatient (CLI) | payer OTHER, SELFPAY ==
[2022-05-12 09:07] VITALS: BP 140/83; PULSE 98; RESP 14; TEMP 36.9; O2SAT 98; BMI 40.3
--- NOTE | 2022-05-12 10:26 | RAD_ITS ---
STUDY: X-RAY CHEST REASON FOR EXAM: Female, 52 years old. Post picc placement TECHNIQUE: Single AP portable view of the chest. COMPARISON: Comparison is made with prior study dated 02/11/2022. FINDINGS: The right-sided PICC line catheter has been placed. The tip is at the junction of the superior vena cava and right atrium. The lungs are clear and expanded. There is no demonstrated pleural abnormality. Normal size heart. Normal mediastinum and claritza. Normal visualized pulmonary arteries. Normal visualized aortic arch and descending thoracic aorta. Normal visualized thoracic spine. Normal visualized ribs, clavicles, and shoulders. There is no demonstrated abnormality of the visualized soft tissue structures of the upper abdomen. RAD/Chest 1 View IMPRESSION: The tip of the right PICC line catheter is at the junction of the superior vena cava and right atrium. Electronically Signed: Malcom Rachel MD at 10:47 EDT ,
== END | disposition home or self-care (01) ==
PROVIDERS: PCP Internal Medicine; Referring Provider Internal Medicine Infectious Disease; Visit Provider Internal Medicine Infectious Disease
DX: M46.47 Discitis, unspecified, lumbosacral region (principal)
CPT/HCPCS: 71045

== ENCOUNTER → 2022-05-13 | Outpatient (CLI) | payer OTHER, SELFPAY ==
[2022-05-13 08:24] VITALS: BP 132/84; PULSE 91; RESP 16; TEMP 36.3; O2SAT 98; BMI 40.3
[2022-05-13 09:22] VITALS: BP 117/73; PULSE 76; RESP 16; TEMP 36.4; O2SAT 99
== END | disposition home or self-care (01) ==
LOC: MEDOUTP 08:15
PROVIDERS: PCP Internal Medicine; Referring Provider Internal Medicine Infectious Disease; Visit Provider Internal Medicine Infectious Disease
DX: M46.47 Discitis, unspecified, lumbosacral region (principal)
CPT/HCPCS: 96365; J7050; A4216

== ENCOUNTER → 2022-05-17 | Outpatient (CLI) | payer OTHER, SELFPAY ==
[2022-05-17 18:50] LABS: Vancomycin, Trough Level 26.1 ug/mL (5.0-15.0)
[2022-05-18 12:47] LABS: ALB/GLOB Ratio 1.2 RATIO (0.9-2.4); AST(SGOT) 19 U/L (15-37); Alanine Aminotransfer ALT/SGPT 26 U/L (13-56); Albumin, Serum 3.9 g/dL (3.2-5.0); Alkaline Phosphatase 79 U/L (45-117); Anion Gap 8 (5-15); BUN 18 mg/dL (7-18); BUN/Creat Ratio 14.1 RATIO (10-20); Calcium,Total 9.3 mg/dL (8.5-10.1); Chloride 104 mmol/L (98-107); Creatinine, Serum 1.28 mg/dL (0.55-1.02); EST Glomerular Filtration Rate 47 mL/min (>60); Est Glom Filt Rate - Afr Amer 57 mL/min (>60); Globulin 3.3 g/dL (2.2-4.2); Glucose 83 mg/dL (74-106); Protein, Total 7.2 g/dL (6.4-8.2); Sodium Level 138 mmol/L (136-145)
[2022-05-18 13:03] LABS: Erythrocyte Sedimentation Rate 13 mm/hr (0-30)
[2022-05-18 13:04] LABS: Hematocrit 37.9 % (37-47); Hemoglobin 12.8 g/dL (12.0-15.0); Mean Corp Hgb Conc 33.8 g/dL (32-36); Mean Corpuscular Hgb 30.2 pg (27.0-32.0); Mean Corpuscular Volume 89.4 fL (81-99); Mean Platelet Vol. 10.8 fl (6.2-12.0); Platelet Count 280 K/mm3 (150-450); RBC Distribution Width CV 12.5 % (11.6-14.6); RBC Distribution Width SD 40.9 fl (35.1-43.9); Red Blood Count 4.24 M/mm3 (4.2-5.4); White Blood Count 6.8 K/mm3 (4.4-11.0)
[2022-05-19 22:14] LABS: Erythropoietin 13.5 mIU/mL (2.6-18.5)
== END | disposition home or self-care (01) ==
LOC: LAB 13:51
PROVIDERS: PCP Internal Medicine; Referring Provider Internal Medicine Infectious Disease; Visit Provider Internal Medicine Infectious Disease
DX: M46.47 Discitis, unspecified, lumbosacral region (principal)
CPT/HCPCS: 80053; 80202; 82668; 85027; 85652

== ENCOUNTER 2022-05-18 08:32 | Outpatient (RCR) | payer OTHER, SELFPAY ==
[2022-05-19 09:12] LABS: Erythrocyte Sedimentation Rate 16 mm/hr (0-30)
[2022-05-19 09:14] LABS: Hematocrit 37.7 % (37-47); Hemoglobin 12.7 g/dL (12.0-15.0); Mean Corp Hgb Conc 33.7 g/dL (32-36); Mean Corpuscular Hgb 29.3 pg (27.0-32.0); Mean Corpuscular Volume 87.1 fL (81-99); Mean Platelet Vol. 10.1 fl (6.2-12.0); Platelet Count 271 K/mm3 (150-450); RBC Distribution Width CV 12.5 % (11.6-14.6); RBC Distribution Width SD 40.1 fl (35.1-43.9); Red Blood Count 4.33 M/mm3 (4.2-5.4); White Blood Count 6.6 K/mm3 (4.4-11.0)
[2022-05-19 10:27] LABS: AST(SGOT) 22 U/L (15-37); Alanine Aminotransfer ALT/SGPT 36 U/L (13-56); Albumin, Serum 3.6 g/dL (3.2-5.0); Alkaline Phosphatase 80 U/L (45-117); Anion Gap 5 (5-15); BUN 16 mg/dL (7-18); Calcium,Total 9.2 mg/dL (8.5-10.1); Chloride 105 mmol/L (98-107); Creatinine, Serum 0.89 mg/dL (0.55-1.02); EST Glomerular Filtration Rate 71 mL/min (>60); Est Glom Filt Rate - Afr Amer 86 mL/min (>60); Globulin 3.6 g/dL (2.2-4.2); Glucose 111 mg/dL (74-106); Potassium 3.9 mmol/L (3.5-5.1); Protein, Total 7.2 g/dL (6.4-8.2); Sodium Level 140 mmol/L (136-145)
== END 2022-05-21 22:01 | disposition home or self-care (01) ==
LOC: HHLAB 08:32
PROVIDERS: PCP Internal Medicine; Referring Provider Internal Medicine Infectious Disease; Visit Provider Internal Medicine Infectious Disease
DX: M46.47 Discitis, unspecified, lumbosacral region (principal); I10 Essential (primary) hypertension; E28.2 Polycystic ovarian syndrome; M25.552 Pain in left hip; F41.8 Other specified anxiety disorders
CPT/HCPCS: 80053; 85027; 85652

== ENCOUNTER → 2022-05-18 | Outpatient (CLI) | payer OTHER, SELFPAY ==
--- NOTE | 2022-05-18 11:45 | RAD_ITS ---
EXAM: XR LUMBOSACRAL SPINE, 2 OR 3 VIEWS CLINICAL INDICATION: low back pain TECHNIQUE: Frontal and lateral views of the lumbar spine and sacrum. This report was created using [employer] report [employer] technology. COMPARISON: None. FINDINGS: VERTEBRAE: Unremarkable. Preserved vertebral body height. No fracture. No spondylolisthesis. Preservation of the normal lumbar lordosis. No significant facet arthropathy. DISC SPACES: There is disc space narrowing at L4-5 and L5-S1. GASTROINTESTINAL TRACT: Unremarkable as visualized. Included bowel gas pattern is non-obstructive. RAD/Lumbar Spine 2 or 3 Views IMPRESSION: No acute osseous abnormality. There are degenerative changes with disc space narrowing in the lower lumbar spine. Electronically Signed: Graham Guzman MD at 3:08 EDT ,
== END | disposition home or self-care (01) ==
LOC: MTRAD 11:45
PROVIDERS: PCP Internal Medicine; Referring Provider Orthopaedic Surgery; Visit Provider Orthopaedic Surgery
DX: M54.50 Low back pain, unspecified (principal)
CPT/HCPCS: 72100

== ENCOUNTER → 2022-05-23 | Outpatient (CLI) | payer OTHER, SELFPAY ==
[2022-05-23 07:52] LABS: ALB/GLOB Ratio 1.1 RATIO (0.9-2.4); AST(SGOT) 20 U/L (15-37); Alanine Aminotransfer ALT/SGPT 32 U/L (13-56); Albumin, Serum 3.8 g/dL (3.2-5.0); Alkaline Phosphatase 87 U/L (45-117); Anion Gap 4 (5-15); BUN 15 mg/dL (7-18); Calcium,Total 9.1 mg/dL (8.5-10.1); Chloride 108 mmol/L (98-107); Creatinine, Serum 0.94 mg/dL (0.55-1.02); EST Glomerular Filtration Rate 67 mL/min (>60); Est Glom Filt Rate - Afr Amer 81 mL/min (>60); Globulin 3.6 g/dL (2.2-4.2); Glucose 104 mg/dL (74-106); Protein, Total 7.4 g/dL (6.4-8.2); Sodium Level 139 mmol/L (136-145)
[2022-05-23 07:55] LABS: Erythrocyte Sedimentation Rate 17 mm/hr (0-30)
[2022-05-23 07:57] LABS: Hematocrit 39.4 % (37-47); Mean Corpuscular Volume 87.9 fL (81-99); Mean Platelet Vol. 10.1 fl (6.2-12.0); Platelet Count 301 K/mm3 (150-450); RBC Distribution Width CV 12.3 % (11.6-14.6); RBC Distribution Width SD 39.6 fl (35.1-43.9); Red Blood Count 4.48 M/mm3 (4.2-5.4); White Blood Count 7.1 K/mm3 (4.4-11.0)
[2022-05-23 08:02] LABS: Vancomycin, Trough Level 12.9 ug/mL (5.0-15.0)
== END | disposition home or self-care (01) ==
LOC: LAB 07:09
PROVIDERS: PCP Internal Medicine; Referring Provider Internal Medicine Infectious Disease; Visit Provider Internal Medicine Infectious Disease
DX: M46.47 Discitis, unspecified, lumbosacral region (principal)
CPT/HCPCS: 36415; 80053; 80202; 85027; 85652

== ENCOUNTER 2022-06-14 07:08 | Outpatient (RCR) | payer OTHER, SELFPAY ==
[2022-05-31 07:44] LABS: Erythrocyte Sedimentation Rate 22 mm/hr (0-30)
[2022-05-31 07:46] LABS: Hematocrit 37.7 % (37-47); Hemoglobin 12.8 g/dL (12.0-15.0); Mean Corpuscular Hgb 29.2 pg (27.0-32.0); Mean Corpuscular Volume 86.1 fL (81-99); Mean Platelet Vol. 10.1 fl (6.2-12.0); Platelet Count 270 K/mm3 (150-450); RBC Distribution Width CV 12.2 % (11.6-14.6); RBC Distribution Width SD 38.5 fl (35.1-43.9); Red Blood Count 4.38 M/mm3 (4.2-5.4); White Blood Count 8.2 K/mm3 (4.4-11.0)
[2022-05-31 08:03] LABS: ALB/GLOB Ratio 0.9 RATIO (0.9-2.4); AST(SGOT) 26 U/L (15-37); Alanine Aminotransfer ALT/SGPT 44 U/L (13-56); Albumin, Serum 3.6 g/dL (3.2-5.0); Alkaline Phosphatase 89 U/L (45-117); Anion Gap 7 (5-15); BUN 16 mg/dL (7-18); Calcium,Total 9.1 mg/dL (8.5-10.1); Chloride 102 mmol/L (98-107); Creatinine, Serum 0.94 mg/dL (0.55-1.02); EST Glomerular Filtration Rate 66 mL/min (>60); Est Glom Filt Rate - Afr Amer 80 mL/min (>60); Globulin 3.8 g/dL (2.2-4.2); Glucose 110 mg/dL (74-106); Potassium 3.9 mmol/L (3.5-5.1); Protein, Total 7.4 g/dL (6.4-8.2); Sodium Level 136 mmol/L (136-145)
[2022-05-31 08:06] LABS: Vancomycin, Trough Level 13.2 ug/mL (5.0-15.0)
[2022-06-07 09:42] LABS: Erythrocyte Sedimentation Rate 16 mm/hr (0-30)
[2022-06-07 09:45] LABS: Hematocrit 38.5 % (37-47); Hemoglobin 12.9 g/dL (12.0-15.0); Mean Corp Hgb Conc 33.5 g/dL (32-36); Mean Corpuscular Hgb 29.1 pg (27.0-32.0); Mean Corpuscular Volume 86.9 fL (81-99); Mean Platelet Vol. 10.2 fl (6.2-12.0); Platelet Count 241 K/mm3 (150-450); RBC Distribution Width CV 12.5 % (11.6-14.6); RBC Distribution Width SD 39.8 fl (35.1-43.9); Red Blood Count 4.43 M/mm3 (4.2-5.4)
[2022-06-07 10:13] LABS: ALB/GLOB Ratio 0.9 RATIO (0.9-2.4); AST(SGOT) 27 U/L (15-37); Alanine Aminotransfer ALT/SGPT 43 U/L (13-56); Albumin, Serum 3.4 g/dL (3.2-5.0); Alkaline Phosphatase 86 U/L (45-117); Anion Gap 5 (5-15); BUN 16 mg/dL (7-18); BUN/Creat Ratio 17.1 RATIO (10-20); Calcium,Total 9.3 mg/dL (8.5-10.1); Chloride 105 mmol/L (98-107); Creatinine, Serum 0.93 mg/dL (0.55-1.02); EST Glomerular Filtration Rate 67 mL/min (>60); Est Glom Filt Rate - Afr Amer 81 mL/min (>60); Globulin 3.7 g/dL (2.2-4.2); Glucose 106 mg/dL (74-106); Potassium 4.1 mmol/L (3.5-5.1); Protein, Total 7.1 g/dL (6.4-8.2); Sodium Level 137 mmol/L (136-145)
[2022-06-07 10:16] LABS: Vancomycin, Trough Level 12.4 ug/mL (5.0-15.0)
[2022-06-14 08:04] LABS: Erythrocyte Sedimentation Rate 23 mm/hr (0-30)
[2022-06-14 08:05] LABS: Hematocrit 41.2 % (37-47); Hemoglobin 13.6 g/dL (12.0-15.0); Mean Corpuscular Hgb 28.7 pg (27.0-32.0); Mean Corpuscular Volume 86.9 fL (81-99); Mean Platelet Vol. 10.1 fl (6.2-12.0); Platelet Count 281 K/mm3 (150-450); RBC Distribution Width CV 12.4 % (11.6-14.6); RBC Distribution Width SD 39.4 fl (35.1-43.9); Red Blood Count 4.74 M/mm3 (4.2-5.4)
[2022-06-14 08:35] LABS: Vancomycin, Trough Level 14.2 ug/mL (5.0-15.0)
[2022-06-14 08:50] LABS: ALB/GLOB Ratio 0.8 RATIO (0.9-2.4); AST(SGOT) 19 U/L (15-37); Alanine Aminotransfer ALT/SGPT 34 U/L (13-56); Albumin, Serum 3.5 g/dL (3.2-5.0); Alkaline Phosphatase 104 U/L (45-117); Anion Gap 7 (5-15); BUN 20 mg/dL (7-18); Calcium,Total 9.3 mg/dL (8.5-10.1); Chloride 104 mmol/L (98-107); Creatinine, Serum 1.11 mg/dL (0.55-1.02); EST Glomerular Filtration Rate 55 mL/min (>60); Est Glom Filt Rate - Afr Amer 67 mL/min (>60); Globulin 4.2 g/dL (2.2-4.2); Glucose 112 mg/dL (74-106); Potassium 3.9 mmol/L (3.5-5.1); Protein, Total 7.7 g/dL (6.4-8.2); Sodium Level 138 mmol/L (136-145)
--- NOTE | 2022-06-14 15:06 | NURSING ---
Pt's PICC dressing had become unattached from the skin at different points in the dressing. Old dressing removed. Sterile CHG dressing applied with sureprep barrier applied as well. Pt tolerated well.
== END 2022-06-14 18:00 | disposition home or self-care (01) ==
LOC: LAB 07:08
PROVIDERS: PCP Internal Medicine; Referring Provider Internal Medicine Infectious Disease; Visit Provider Internal Medicine Infectious Disease
DX: M46.47 Discitis, unspecified, lumbosacral region (principal)
CPT/HCPCS: 36415; 80053; 80202; 85027; 85652

== ENCOUNTER → 2022-07-13 | Outpatient (CLI) | payer OTHER, SELFPAY ==
--- NOTE | 2022-07-13 07:44 | MRI_ITS ---
HISTORY: 6 weeks post antibiotic treatment, discitis TECHNIQUE: Multiplanar and multisequence MR images of the lumbar spine were obtained before and after the intravenous administration of 20 mL Clariscan. 153 images. COMPARISON: XR 05/18/2022. MR 04/02/2022 and 12/20/2021. FINDINGS: VERTEBRAE: Vertebral body heights maintained. Degenerative bone marrow endplate changes at L4-5 and L5-S1 with intervertebral disc space narrowing. Decreased enhancement of the L5-S1 intervertebral disc. Unchanged mild bone marrow edema of the bilateral L4 and L5 pars interarticularis. No new cortical erosion or enhancing osseous lesion. ALIGNMENT: No significant anterior or posterior subluxation. SPINAL CANAL: Normal morphology and position of the conus medullaris at L1. No epidural collection or enhancing intradural extramedullary mass. INTERVERTEBRAL DISCS: T12-L1, L1-2, L2-3: No significant posterior disc protrusion, central canal stenosis, or foraminal narrowing. L3-4: Minimal disc bulge and facet arthropathy without significant central canal stenosis or foraminal narrowing. L4-5: Mild disc bulge eccentric to the right with facet arthropathy resulting in minimal narrowing of the thecal sac and mild right foraminal narrowing. L5-S1: Minimal disc bulge and facet arthropathy without significant central canal stenosis or foraminal narrowing. SOFT TISSUES: Further interval decrease in prevertebral enhancement at the L5-S1 level. No paraspinal fluid collection. Mild posterior subcutaneous edema again noted. MRI/Spine Lumbar W/WO Contrast IMPRESSION: Decreased enhancement of the L5-S1 intervertebral disc and prevertebral soft tissues. Residual degenerative endplate changes at L4-5 and L5-S1 without evidence for osteomyelitis. Mild degenerative disc disease in the lumbar spine without spinal canal stenosis. Electronically Signed: Valentina Kapadia MD at 13:35 EDT ,
== END | disposition home or self-care (01) ==
LOC: MRI 07:31
PROVIDERS: PCP Internal Medicine; Referring Provider Nurse Practitioner Acute Care; Visit Provider Nurse Practitioner Acute Care
DX: M46.47 Discitis, unspecified, lumbosacral region (principal)
CPT/HCPCS: 72158; A9575

== ENCOUNTER → 2022-08-04 | Outpatient (CLI) | payer OTHER, SELFPAY ==
--- NOTE | 2022-08-04 14:20 | BI_ITS ---
MAMMOGRAPHY - BILATERAL SCREENING REASON FOR EXAM: Female, 52 years old. Routine annual screening examination. PERTINENT HISTORY: Non-contributory. TECHNIQUE: Digital bilateral breast babar (3D mammographic acquisition) in the CC and MLO projections. 2-D mediolateral oblique (MLO) and craniocaudad (CC) views of both breasts were obtained. CAD: Full Field Digital Mammography with Computer Added Detection was performed. COMPARISON: Comparison is made with prior study dated 05/12/2021 and generally 32,020 FINDINGS: Breast Composition: There are scattered areas of fibroglandular density. There are no dominant masses or suspicious calcifications. The previously seen 7.5 mm x 5.8 mm well-defined nodule in the central upper portion of left breast is not seen at this time. No other significant abnormalities are identified. BI/SCRN MAMM (CAD)W/BABAR BILAT IMPRESSION: Stable bilateral screening mammogram. Yearly follow-up mammogram recommended. (A) ASSESSMENT CATEGORY: BIRADS Category 2: Benign. A letter regarding these results will be sent to the patient by the facility within 30 days. Approximately 10% of breast cancers are not detected by mammography. A normal mammogram should not delay biopsy of a clinically suspicious abnormality. [id number] Electronically Signed: Malcom Rachel MD at 15:18 EDT ,
[2022-08-04 18:14] LABS: Hemoglobin A1c 5.3 % (3.8-5.6)
[2022-08-04 18:30] LABS: Anion Gap 6 (5-15); BUN 21 mg/dL (7-18); BUN/Creat Ratio 22.3 RATIO (10-20); Calcium,Total 9.3 mg/dL (8.5-10.1); Chloride 107 mmol/L (98-107); Creatinine, Serum 0.94 mg/dL (0.55-1.02); EST Glomerular Filtration Rate 67 mL/min (>60); Est Glom Filt Rate - Afr Amer 81 mL/min (>60); Glucose 88 mg/dL (74-106); Potassium 3.8 mmol/L (3.5-5.1); Sodium Level 139 mmol/L (136-145)
== END | disposition home or self-care (01) ==
PROVIDERS: PCP Internal Medicine; Referring Provider Nurse Practitioner Women's Health; Visit Provider Nurse Practitioner Women's Health
DX: Z12.31 Encounter for screening mammogram for malignant neoplasm of breast (principal); E66.01 Morbid (severe) obesity due to excess calories; I10 Essential (primary) hypertension
CPT/HCPCS: 36415; 77063; 77067; 80048; 83036

== ENCOUNTER 2022-08-18 12:52 | Outpatient (RCR) | payer OTHER, SELFPAY | END 2022-08-22 23:59 | LOC: NS 12:52 | PROVIDERS: PCP Internal Medicine; Referring Provider Internal Medicine; Visit Provider Internal Medicine | DX: Z71.3 Dietary counseling and surveillance (principal); E66.01 Morbid (severe) obesity due to excess calories | CPT/HCPCS: 97802 ==

== ENCOUNTER 2022-09-21 10:00 | Outpatient (RCR) | payer OTHER, SELFPAY | END 2022-09-21 23:59 | LOC: NS 10:00 | PROVIDERS: PCP Internal Medicine; Referring Provider Internal Medicine; Visit Provider Internal Medicine | DX: Z71.3 Dietary counseling and surveillance (principal); E66.01 Morbid (severe) obesity due to excess calories | CPT/HCPCS: 97803 ==

== ENCOUNTER 2022-10-20 10:00 | Outpatient (RCR) | payer OTHER, SELFPAY ==
--- NOTE | 2022-08-15 14:16 | HP.PTEVAL_ITS ---
Patient's Visit Information JAKE COOPER is a 52 year old F referred to Physical Therapy by Dr. Ulices Bernal MD with a diagnosis of L hip pain, discitis of lumbosacral region. Date of Evaluation: 08/09/22 Physical Therapist: Mehrdad Shoemaker DPT - Visit Plan Frequency: 2x /Week Duration: 6 Weeks Plan: Start with neutral spine core and hip strengthening in aquatic setting. Progress multifidus and TA strengthening. Add in multidirectional L hip strengthening. Be cautious of her underlying glute med/min tear and lumbar discitis. Pt. has desires to add in wt. loss goals. If she tolerated start to add in cardiovascular exercises. Need to start slowly as she has not done much strengthening for ~1 year. Progress as tolerated. - Subjective Pt. is here today for her initial evaluation with diagnosis of L hip pain, discitis of lumbosacral region. Pt. reports having pain in her L hip for ~ 1 year. She was going to have a glute med repair, but prior to this it was found that she had discitis of her lumbar spine. She ended up going to several surgeons, 1 suggesting fusion and another wanting to wait. She ended up waiting and has had some marked reduction in her discitis. She is to have another MRI in a few months. She at this point in time would like to work on her hip strengthening and core stability to increase tolerance to all work activities. 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 Pt. denies N/T in either LE. Pt. has increased pain with prolonged standing and gets worse throughout the day. Pt. reports has some groin pain, but most of her pain in posteriorly and into her sacrum at times. She does report some reduction in symptoms since doing less and taking the IV medication. Pt. is sleeping well, minimal soreness. pt. is hopeful to reduce her symptoms, and increase core/hip strength. - Pain L hip Pain Intensity (Out of 10): 2 Pain Intensity Range: 0, 6 Lumbar spine Pain Intensity (Out of 10): 3 Pain Intensity Range: 2, 6 - Objective POSTURE: Pt. has slight increase in anterior pelvic tilt. Pt. has slight sway back posture. PALPATION: Pt. has tenderness at glute medius region, increased tenderness to lumbosacral region L3-S1. NEURO: normal to sensation to light and sharp touch throughout BLEs. Pt. has 2+ DTR of B Achilles and patellar tendon. ROM: LUMBAR SPINE: flexion min loss increase NE, extension min loss increase NW, SB min loss NE bilat, rotation min loss bilat increase NW. L hip: flexion 120deg NE, abd 45dge NE, ext 20deg mild increase NW, ER 40deg increase nW, IR 30deg NE. MMT: RLE 5/5 throughout; LLE: ankle 5/5 throughout, knee: ext 5-/5, flexion 5- /5; hip: flexion 4+/5, abd 4/5, ext 4/5 mild increase NW. Core strength- poor. GAIT: pt. has increased lateral hip translation to L side during L stance (not full Trendelenburg). Pt and equal step length. Slight flexed posture noted. STAIRS: Pt. does step to loading RLE only, uses 1 HR to complete. - Special Tests L/S Slump test left side: Negative L/S Slump test right side: Negative L/S Left Straight Leg Raise: Negative L/S Right Straight Leg Raise: Negative Lumbar Standing: Flexion - Mechanical Response: No effect Lumbar Standing: Flexion - Symptoms During Testing: Increases Lumbar Standing: Flexion - Symptoms After Testing: No worse Lumbar Standing: Extension - Mechanical Response: No effect Lumbar Standing: Extension - Symptoms During Testing: Increases Lumbar Standing: Extension - Symptoms After Testing: No worse Lumbar Standing: Right Side Glides - Mechanical Response: No effect Lumbar Standing: Right Side [place] - Symptoms During Testing: No effect Lumbar Standing: Right Side [place] - Symptoms After Testing: No effect Lumbar Standing: Left Side [place] - Mechanical Response: No effect Lumbar Standing: Left Side [place] - Symptoms During Testing: Produces Lumbar Standing: Left Side [place] - Symptoms After Testing: No effect Lumbar Lying: Flexion - Mechanical Response: No effect Lumbar Lying: Flexion - Symptoms During Testing: Decreases Lumbar Lying: Flexion - Symptoms After Testing: No better Lumbar Lying: Extension - Mechanical Response: No effect Lumbar Lying: Extension - Symptoms During Testing: Abolishes Lumbar Lying: Extension - Symptoms After Testing: No worse Lumbar Static:Lying Prone in Extension - Mechanical Response: No effect Lumbar Static: Lying Prone in Extension - Sx During Testing: Increases Lumbar Static: Lying Prone in Extension - Sx After Testing: No worse - Balance/Special Test Scores Lower Extremity Functional Score: 33 - Goals Goal 1:: LTG: Pt. to be I with HEP for both core and LLE strengthening. Goal Time Frame: 4-6 Weeks Goal 2:: STG: Pt. to be able to sleep with 0-2/10 pain in L hip and lumbar spine. Goal Time Frame: 2-4 Weeks Goal 3:: LTG: Pt. to complete all work related activities with 0-2/10 pain in lumbar spine and L hip. Goal Time Frame: 4-6 Weeks Goal 4:: LTG: Pt. to have increased L hip, TA, and lumbar extensor strength increased by 1/2 grade in order to reduce stress to L hip and lumbar spine with all work and recreational activities. Goal Time Frame: 4-6 Weeks Goal 5:: LTG: Pt. to have full lumbar ROM without increase in symptoms. Goal Time Frame: 4-6 Weeks - Rehabilitation Potential Physical Therapy Diagnosis: Pt. has signs and symptoms consistent with L hip pain, discitis of lumbosacral region. Pt. has imaging showing both injuries. Pt. has slight limitation in lumbar spine and L hip with her ROM, but not major. Pt. does have marked weakness in both L hip/LE and core strength both of her flexors and lumbar extensors as well as marked TA weakness. Pt. would benefit from PT to address the above weakness in order to reduce stress to both her L hip and lumbar spine. Rehabilitation Potential: Good - Anticipated Interventions Patient/Client Instruction: Educate patient on: Condition, Plan of Care, Risk Factors, Benefits of Fitness Program For the Purpose of:: To improve decision making, To facilitate caregiver knowledge, To improve self management, To prevent re-injury, To improve ability to perform tasks related to life management, To improve tolerance to ADL's Therapeutic Exercise to Include: Strength training, Power training, Endurance training, Balance training, Body mechanics, Postural training, Flexibilty training, In an aquatic setting, Dynamic Lumbar Stabilization, [place] Exercises For the Purpose of:: To decrease pain, To increase ROM, To improve nutrient delivery to tissue, To increase oxygenation perfusion, To improve muscle performance and motor function, To improve ability to perform ADL's, To improve health of tissue, To decrease soft tissue restriction, To increase flexibility/ROM, To improve endurance Thank you for the opportunity to evaluate your patient. For Medicare and Medicare HMO plans, please review the plan of care and approve it. It will need to be FAXED BACK to us at [phone] for Medicare purposes. For Medicare only, by signing this I certify the plan of care. Please let me know if there are questions or concerns regarding this plan of care. Physician Signature: Date:
--- NOTE | 2022-10-04 08:08 | HP.PTREVAL ---
Dr. Ulices Bernal MD, It has been my pleasure to treat JAKE COOPER over the last 13 visits for L hip pain, discitis of lumbosacral region. Please see the progress note below for an update on the physical therapy plan of care! Subjective: PT. reports overall doing well. She feels ready to progress to land exercises. Objective/Function: Pt. is walking well without issues. Pt. reports having some pain with prolonged standing at work but is progressing. ROM: PT. has good ROM of LLE without issues. No pain with testing today. MMT: LLE 4/5 throughout. Pt. has no pain with testing. Core strength fair-. GAIT: Pt. is ambulating well without issues. No major pain noted. I think at this point in time. She should start more land exercises. Plan Plan: Progress to gym exercises as toelrated. Balance/Gait/Functional tests - Balance/Special Test Scores Lower Extremity Functional Score: 33 Goals Goal 1:: LTG: Pt. to be I with HEP for both core and LLE strengthening. Goal Time Frame: 4-6 Weeks Goal 2:: STG: Pt. to be able to sleep with 0-2/10 pain in L hip and lumbar spine. Goal Time Frame: 2-4 Weeks Goal 3:: LTG: Pt. to complete all work related activities with 0-2/10 pain in lumbar spine and L hip. Goal Time Frame: 4-6 Weeks Goal 4:: LTG: Pt. to have increased L hip, TA, and lumbar extensor strength increased by 1/2 grade in order to reduce stress to L hip and lumbar spine with all work and recreational activities. Goal Time Frame: 4-6 Weeks Goal 5:: LTG: Pt. to have full lumbar ROM without increase in symptoms. Goal Time Frame: 4-6 Weeks Anticipated Interventions Patient/Client Instruction: Educate patient on: Condition, Plan of Care, Risk Factors, Benefits of Fitness Program For the Purpose of:: To improve decision making, To facilitate caregiver knowledge, To improve self management, To prevent re-injury, To improve ability to perform tasks related to life management, To improve tolerance to ADL's Therapeutic Exercise to Include: Strength training, Power training, Endurance training, Balance training, Body mechanics, Postural training, Flexibilty training, In an aquatic setting, Dynamic Lumbar Stabilization, [place] Exercises For the Purpose of:: To decrease pain, To increase ROM, To improve nutrient delivery to tissue, To increase oxygenation perfusion, To improve muscle performance and motor function, To improve ability to perform ADL's, To improve health of tissue, To decrease soft tissue restriction, To increase flexibility/ROM, To improve endurance Please do not hesitate to contact me at [phone] by phone or if you have questions or concerns regarding this new plan of care! Sincerely, SIERRA ChanT
--- NOTE | 2022-10-20 16:12 | HP.PTDCSUM ---
It has been my pleasure to treat JAKE COOPER referred by Dr. Ulices Bernal MD, with the diagnosis of L hip pain, discitis of lumbosacral region for a total of 18 visit(s). Discharge Date: 10/20/22 Please see the following information for a summary of their discharge status. Subjective: Pt. reports overall doing much better. Pt. has been doing her work activities with minimal issues. Pt. does have some L hip pain with prolong standing, but alleviates quickly. Pt. is pleased with progress thus far. Pt. is currently I with HEP for LE strengthening. L hip Pain Intensity (Out of 10): 0 Lumbar spine Pain Intensity (Out of 10): 0 % Improvement: 80 Objective/Function: ROM: LUMBAR SPINE: full motion without increase in symptoms. Pt. has really good L hip ROM as well. good hip flexor and HS length noted. MMT: 5/5 throughout BLEs, except L hip abd 4+/5 and L hip extension 5-/5. GAIT: Normal gait pattern noted. No pain with walking or stairs. Pt. is overall doing well. She is I with all of her gym and home exercises. Goal 1:: LTG: Pt. to be I with HEP for both core and LLE strengthening. Goal Progress: Goal Met Goal 2:: STG: Pt. to be able to sleep with 0-2/10 pain in L hip and lumbar spine. Goal Progress: Goal Met Goal 3:: LTG: Pt. to complete all work related activities with 0-2/10 pain in lumbar spine and L hip. Goal Progress: Goal Met Goal 4:: LTG: Pt. to have increased L hip, TA, and lumbar extensor strength increased by 1/2 grade in order to reduce stress to L hip and lumbar spine with all work and recreational activities. Goal Progress: Goal Met Goal 5:: LTG: Pt. to have full lumbar ROM without increase in symptoms. Goal Progress: Goal Met Plan: Pt. is overall doing well. I will DC her back to physician at this point in time. Discharge Comments: Pt. worked initially in aquatic setting on core and glute strength. She has progressed back to land and gym exercises. Pt. is overall doing well. Pt. will be DC from PT at this point intime. If there are questions or concerns regarding this patient's physical therapy, please feel free to call me at [phone]. Thank you for the referral of this patient. Sincerely, Mehrdad Shoemaker, SIERRAT Balance/Gait/Functional tests - Balance/Special Test Scores Lower Extremity Functional Score: 68
== END 2022-10-20 19:00 | disposition home or self-care (01) ==
LOC: PT 10:00
PROVIDERS: PCP Internal Medicine; Referring Provider Internal Medicine; Visit Provider Internal Medicine
DX: M25.552 Pain in left hip (principal); M46.47 Discitis, unspecified, lumbosacral region
CPT/HCPCS: 97110; 97113; 97161; 97164

== ENCOUNTER → 2022-10-21 | Outpatient (CLI) | payer OTHER, SELFPAY ==
--- NOTE | 2022-10-21 15:05 | MRI_ITS ---
INDICATION: Low back and left hip pain EXAMINATION: MRI - MR Spine Lumbar WO/W Contrast TECHNIQUE: Multiplanar and multisequence MR images of the lumbar spine. IV Contrast Dosage and Agent: None. COMPARISON: 05/02/2022, 07/13/2022 FINDINGS: VERTEBRAE: Vertebral body heights are preserved. Normal vertebral bodies and posterior elements. VERTEBRAL ALIGNMENT: No spondylolisthesis. There is preservation of the normal lumbar lordosis. CORD: Normal position and signal intensity of the conus medullaris. L1/L2: Normal disc height and morphology. Normal spinal canal, lateral recesses and neuroforamina. L2/L3: Normal disc height and morphology. Normal spinal canal, lateral recesses and neuroforamina. L3/L4: Normal disc height and morphology. Normal spinal canal, lateral recesses and neuroforamina. L4/L5: Modic type II endplate change. Mild disc bulge. Moderate right and mild left facet arthrosis. No spinal canal or neural foraminal stenosis.. L5/S1: Modic type II endplate change. Mild disc bulge. Mild facet arthrosis. Normal spinal canal, lateral recesses and neuroforamina. SOFT TISSUES: Mild paraspinous muscle fatty infiltration. MRI/Spine Lumbar W/WO Contrast IMPRESSION: Degenerative disc, endplate, and facet disease at L4-5 and L5-S1 are not significantly changed compared to 05/02/2022. No spinal canal or neural foraminal stenosis. Electronically Signed: Clement Ding MD at 22:31 EST ,
[2022-10-21 18:16] LABS: CREATININE FINGERSTICK < 0.9 mg/dL (0.55-1.02); EGFR FINGERSTICK > 60.0000 mL/min (>60)
== END | disposition home or self-care (01) ==
LOC: MRI 15:05
PROVIDERS: PCP Internal Medicine; Referring Provider Orthopaedic Surgery; Visit Provider Orthopaedic Surgery
DX: M46.47 Discitis, unspecified, lumbosacral region (principal)
CPT/HCPCS: 72158; A9575

== ENCOUNTER → 2022-12-20 | Outpatient (CLI) | payer OTHER, SELFPAY ==
--- NOTE | 2022-12-20 07:41 | US_ITS ---
STUDY: ABDOMINAL ULTRASOUND - RIGHT UPPER QUADRANT REASON FOR VISIT: Female, 52 years old abdominal pain, bloating TECHNIQUE: Ultrasound evaluation of the right upper quadrant was performed with real-time and static melgoza-scale imaging. TECHNICAL QUALITY: Adequate. COMPARISON: None. FINDINGS: Liver: The liver measures 16.5 cm. There is increased echogenicity consistent with fatty infiltration. The bile ducts are within normal limits. There is hepatic color flow. The direction of portal flow is hepatopetal. There is no demonstrated mass lesion. Gallbladder: Normal distended gallbladder. The gallbladder wall measures 2 mm. There is a negative sonographic Osorio''s sign. There is no pericholecystic fluid. There are no gallstones. Common Bile Duct (C.B.D.): The common bile duct measures 5 mm. Pancreas: There is nonvisualization of the pancreas due to overlying bowel gas. Right Kidney: Normal size of the right kidney. The right kidney measures 11.8 cm x 4.6 x 4.9 cm. Normal renal cortex. The right cortex measures 1.7 cm. There is no demonstrated renal mass or cyst. There is no right hydronephrosis. US/Gallbladder IMPRESSION: Fatty infiltration of the liver. Electronically Signed: Malcom Rachel MD at 11:17 EST ,
== END | disposition home or self-care (01) ==
LOC: US 07:39
PROVIDERS: PCP Internal Medicine; Visit Provider Surgery
DX: K21.9 Gastro-esophageal reflux disease without esophagitis (principal); R14.0 Abdominal distension (gaseous)
CPT/HCPCS: 76705

== ENCOUNTER → 2022-12-30 | Outpatient (CLI) | payer OTHER, SELFPAY ==
[2022-12-30 17:50] LABS: AST(SGOT) 25 U/L (15-37); Alanine Aminotransfer ALT/SGPT 59 U/L (13-56); Albumin, Serum 3.7 g/dL (3.2-5.0); Alkaline Phosphatase 80 U/L (45-117); Amylase 69 U/L (25-115); Globulin 3.7 g/dL (2.2-4.2); Lipase 242 U/L (73-393); Protein, Total 7.4 g/dL (6.4-8.2)
== END | disposition home or self-care (01) ==
LOC: LAB 16:37
PROVIDERS: PCP Internal Medicine; Referring Provider Surgery; Visit Provider Surgery
DX: K21.9 Gastro-esophageal reflux disease without esophagitis (principal); R14.0 Abdominal distension (gaseous)
CPT/HCPCS: 36415; 80076; 82150; 83690

== ENCOUNTER 2023-01-10 07:25 | Day surgery (SDC) | payer OTHER, SELFPAY ==
[2023-01-10 07:52] VITALS: BP 128/73; PULSE 69; RESP 18; TEMP 36.4; O2SAT 99; BMI 43.0
[2023-01-10 08:01] LABS: Internal QC Validated? YES +Cl - CLEAR BKGD; Pregnancy, Urine Negative Negative
[2023-01-10] MEDS: Lactated Ringers 1,000 ML 15 ML IV (08:06)
--- NOTE | 2023-01-10 08:06 | HP.PCM_ITS ---
History and Physical Date of Admission: 01/10/23 Visit Reasons:?EGD- REFLUX Chief Complaint: EGD Administrative Officer Required: No Is patient in pain?: No Allergies No Known Allergies Allergy (Verified 12/19/22 10:15) Medications multivitamin 1 cap PO DAILY 11/26/19 [History Confirmed 12/19/22] turmeric root extract 500 mg capsule 1,500 mg PO DAILY 12/18/19 [History Confirmed 12/19/22] ascorbic acid (vitamin C) 500 mg capsule 500 mg PO DAILY 03/24/20 [History Confirmed 12/19/22] cholecalciferol (vitamin D3) 50 mcg (2,000 unit) capsule 50 mcg PO DAILY 03/24/20 [History Confirmed 12/19/22] ibuprofen 800 mg tablet 800 mg PO TID PRN Muscle Pain 12/22/21 [History Confirmed 12/19/22] lorazepam 0.5 mg tablet 0.5 mg PO DAILY PRN anxiety #10 tabs 05/12/22 [Rx Confirmed 12/19/22] triamterene 37.5 mg-hydrochlorothiazide 25 mg tablet 1 tab PO QAM #90 tabs 08/03/22 [Rx Confirmed 12/19/22] omeprazole 40 mg capsule,delayed release 40 mg PO DAILY #90 caps 09/09/22 [Rx Confirmed 12/19/22] bupropion HCl 150 mg 24 hr tablet, extended release 150 mg PO QAM #30 tabs 11/16/22 [Rx Confirmed 12/19/22] PFSH Medical History? Anxiety and depression Back problem Discitis of lumbosacral region Family history of heart disease GERD (gastroesophageal reflux disease) Health care maintenance Hypertension Left hip pain Morbid obesity PCOS (polycystic ovarian syndrome) Surgical History? H/O section History of hip surgery Family History? Grandmother Diabetes ?? ? type 2Aunt Diabetes ?? ? type 2Other Anxiety and depression Social History? number of children:? 1 current occupational status:? 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 Former smoker Tobacco: How many years used:? 8 alcohol intake:? current alcohol intake frequency: holidays/special occasions only substance use type:? does not use caffeine:? Yes Type: coffee Number of servings: 2 what type of physical activity do you participate in:? walking frequency:? 3-4 times per week seatbelt use:? sometimes do you feel safe at home:? Yes additional social history:? Single HPI HPI HPI: 52-year-old female is being referred by Dr. Ulices Bernal for surgical consultation regarding symptoms consistent with reflux disease.? Written copy of my surgical consult recommendations will return to her.? The patient's had problems with reflux with omeprazole increased to 40 mg daily.? Apparently no change with the higher dosing.? She is noting upper abdominal discomfort and sfdc developer nausea.? Her other chronic conditions include hypertension and lumbosacral discitis chronic left hip pain.? She was treated with antibiotics for the discitis. She is mostly complaining of abdominal bloating and discomfort.? She takes MiraLAX in her coffee that improves any symptoms of constipation.? 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 She does find the job stressful.? It is curious that she can have this abdominal bloating and discomfort during her workdays but on her off days her symptoms seem to be much less.? No bright red blood per rectum or melena.? She does not really sense reflux symptoms. Most recent laboratory I see is from June 14, 2022 when her white count was 7 hemoglobin 13.6 hematocrit 41.2 platelet count 281,000.? As of August 04, 2022 BUN was 21 and creatinine 0.94.? As of June 14, 2022 AST was 19 and ALT 34 alkaline phosphatase 104 and total protein 7.7 with an albumin of 3.5 and a globulin of 4.2 I had assisted with her evaluation March 2020 and it is noted that March 26, [address] scan of the abdomen pelvis was obtained.? This demonstrated normal gallbladder normal pancreas normal adrenals at that time as well as normal kidneys small and large bowel.? There was a 4.3 x 2.3 cm left ovarian cyst at that time.? There was a small umbilical hernia.? There was disc base narrowing at L4-5 and L5 1 I had assisted her with a colonoscopy on April 21, 2020 which was this patient's first colonoscopy.? The entire colon was notably moderately redundant.? Random biopsies were obtained.? Repeat colonoscopy at 10 years.? Pathology demonstrated no evidence of pathologic change no evidence for colitis ROS General General: No weight change, appetite, fatigue, colon cancer, breast cancer or weakness HEENT HEENT: No difficulty swallowing, eye injury, eye surgery, swollen glands or hoarseness Endo Endocrine: No thyroid disease, diabetes mellitus, thyroid cancer, Hair loss, heat intolerance or cold intolerance Skin Skin: No rash or changing moles Breast Breast: No left breast lump, right breast lump, nipple discharge, breast pain, abnormal mammogram, abnormal US or breast enlargement Musc Musculoskeletal: No back problems, arthritis, rheumatoid arthritis, gout or joint pain Cardio Cardiovascular: Yes high blood pressure; No murmur, pacemaker, heart disease, atrial fibrillation, heart attack, heart stent, palpitations, shortness of breat with exertion or chest pain Psych Psychiatric: No depression, anxiety or hearing voices Resp Respiratory: No shortness of breath, No sleep apnea, No cough, No COPD, No asthma, No emphysema and No wheezing Gastro Gastrointestinal: Yes abdominal pain, Yes nausea or vomiting, No diarrhea, Yes constipation, No blood in stool, Yes acid reflux, No hemorrhoids, No ulcers, No gallbladder problem and No black,tarry stools Kody Hematologic: No blood thinners, No blood disorders, No bleeding, No anemia and No blood clots Neuro Neurologic: No system reviewed and no additional complaints, except as documented, No as per HPI, No abnormal gait, No abnormal hearing, No abnormal movements, No abnormal speech, No behavioral changes, No burning sensations, No confusion, No convulsions, No disequilibrium, No dizziness, No localized weakness, No frequent falls, No headache(s), No lack of coordination, No loss of vision, No memory loss, No numbness, No other visual disturbances, No radicular pain, No restless legs, No sensory deficit, No syncope, No tingling, No tremor(s), No weakness and No other Exam Const General: cooperative, healthy appearing, comfortable and no acute distress Nutritional Appearance: obese morbidly obese Orientation: alert and awake [facility] Head: normal to inspection Eyes General: appearance normal, both eyes and all related structures Neck Neck: normal visual inspection Chest Chest palpation & inspection: normal inspection of the chest Resp Effort & Inspection: normal respiratory effort Auscultation: clear to auscultation bilaterally Cardio Rate: regular rate Rhythm: regular rhythm GI Palpation: soft Other: Normal bowel sounds.? I am not able to detect any internal organs secondary to b sofia habitus Musc Cervical Spine: normal cervical lordosis Skin General: no rashes or lesions noted Neuro General: patient alert, patient awake and patient oriented x3 Extrem General: no calf tenderness Psych Appearance: grossly normal Assessment and Plan Assessment and Plan (1) GERD (gastroesophageal reflux disease): ?Status:?Chronic (2) Bloating: ?Status:?Acute ?Plan: 52-year-old female with diffuse abdominal bloating worse when she is at work and at home.? Certainly the possibility of a stress-induced somatic issue could be present.? I do recommend to her an esophagogastroduodenoscopy with very careful inspection.? I do not believe that a follow-up colonoscopy is required at this setting as biopsies were obtained in the previous 1 and were unremarkable. Her CT scan was March 2020 and was unremarkable at that time.? She has never had a dedicated evaluation of her gallbladder.? I do recommend that we obtain liver function tests amylase and lipase as well as a gallbladder ultrasound.? I suppose if this is absolutely unremarkable might consider repeat CT scan. I am not sure at this time whether this falls into a category of irritable bowel syndrome.? I will pursue and trying to assist the patient to identify an organic etiology. She has had an opportunity to ask and have questions answered.? We will pursue as noted.? I appreciate the ongoing opportunity of assisting with her surgical care. Copy: Dr. Ulices Richardson M.D., F.A.C.S I have examined the patient and the H&P has been reviewed. There are no clinical changes since date of exam. Neto Richardson M.D., F.A.C.S.
--- NOTE | 2023-01-10 08:45 | IMM_PTH ---
PATIENT: JAKE COOPER LOC: EN U#:[id number] AGE/SX: 52/F ROOM: RE01/10/[address]: Dr. Neto Richardson MD : 1970 BED: DIS: 01/10/2023 SPEC #: [id number] RECD: 01/10/23 13:48 STATUS: SAMIRA REQ #: [id number] FEROZ: 01/10/23 08:[address]: Neto Richardson DEPT: IMMUNOHISTOCHEMISTRY RECD BY: Trang Vivas ENTERED: 01/10/23 13:49 SP TYPE: IMMUNO OTHR DR: Dr. Ulices Bernal MD Tissues: B - Stomach, NOS Procedures: H Pylori (initial) PHYSICIAN & INSTITUTION [place] [id number] SPECIMEN INFORMATION: Tissue Source: B ? Antrum biopsy Clinical Info: GERD, bloating Specimen Number: [id number] CPT code: 43977 METHODOLOGY: Deparaffinized sections of prefer/formalin-fixed tissue or PAP/DQ stained slides are incubated with monoclonal/polyclonal antibodies/oligonucleotide probes. Localization is made via biotin free immunoperoxidase method. Appropriate controls are performed and reacted as expected. Results on target cell population are indicated in the following table: RESULTS: ANTIBODY / CLONE RESULT Block B H Pylori (polyclonal) negative These tests were developed and their performance characteristics determined by [facility]. They may not have been cleared or approved by the U.S. Food and Drug Administration. The FDA has determined that such clearance or approval is not necessary. The above immunohistochemical/dualISH markers are ordered and reviewed by the Pathologist. INTERPRETATION: B. Antrum, biopsy: Negative for Helicobacter pylori organisms. MAKAYLA:tre 01/11/2023
--- NOTE | 2023-01-10 08:45 | EGD_PTH ---
PATIENT: JAKE COOPER LOC: EN U#:[id number] AGE/SX: 52/F ROOM: RE01/10/[address]: Dr. Neto Richardson MD : 1970 BED: DIS: 01/10/2023 SPEC #: [id number] RECD: 01/10/23 10:01 STATUS: SAMIRA HILLIARD #: [id number] FEROZ: 01/10/23 08:[address]: Neto Richardson DEPT: SURGICAL PATHOLOGY RECD BY: Leah Batista ENTERED: 01/10/23 11:30 SP TYPE: EGD BIOPSY OT DR: Dr. Ulices Bernal MD Tissues: A - Duodenum, NOS B - Gastric mucous membrane C - Esophagus, NOS D - Esophagus, NOS E - Esophagus, NOS Procedures: Special Stain Group II Surgery Specimen Level IV Alcian Blue/PAS (control) HEADER OPERATION: EGD ([facility]), biopsy PRE-OP DIAGNOSIS: GERD, bloating TISSUE SUBMITTED: A ? Duodenum biopsy, B ? Antrum biopsy for histo and H. pylori, C ? Greater curvature polyp biopsy, D ? Distal esophagus biopsy, E ? Mid esophagus biopsy MICROSCOPIC DIAGNOSIS A. Duodenum, biopsy: Fragments of duodenal mucosa, no pathologic diagnosis. B. Antrum, biopsy: Mild gastritis. See microscopic description and comment. C. Greater curvature polyp, biopsy: Consistent with fragments of fundic gland polyp. Focal mild chronic inflammation. D. Distal esophagus, biopsy: Fragments of gastroesophageal mucosa with mild chronic inflammation. Intestinal metaplasia (goblet cell metaplasia) not identified. See comment. E. Mid esophagus, biopsy: Fragments of benign squamous mucosa. SJ:rg 01/11/2023 COMMENT B. The results of immunohistochemistry for Helicobacter pylori will be reported separately ([id number]). D. Alcian blue/PAS stain with matched control is used in the evaluation of the specimen. The specimen predominantly consists of squamous mucosa. MICROSCOPIC DESCRIPTION Slides are reviewed. B. The specimen shows fragments of gastric mucosa with chronic inflammatory cell infiltrates in the lamina propria consisting of lymphocytes and plasma cells, consistent with mild chronic gastritis. GROSS DESCRIPTION A - Received in fixative is one container labeled with the patient's name and designated duodenum biopsy. The specimen consists of one irregular fragment of light francis soft tissue that measures 0.3 x 0.3 x 0.1 cm. The specimen is totally submitted in one cassette. B - Received in fixative is one container labeled with the patient's name and designated antrum biopsy. The specimen consists of one irregular fragment of light francis soft tissue that measures 0.8 x 0.2 x 0.1 cm. The specimen is totally submitted in one cassette. C - Received in fixative is one container labeled with the patient's name and designated greater curvature polyp biopsy. The specimen consists of two irregular fragments of light francis soft tissue that in aggregate measure 0.8 x 0.4 x 0.1 cm. The specimen is totally submitted in one cassette. D - Received in fixative is one container labeled with the patient's name and designated distal esophagus biopsy. The specimen consists of multiple irregular fragments of light francis soft tissue that in aggregate measure 0.6 x 0.6 x 0.1 cm. The specimen is totally submitted in one cassette. E - Received in fixative is one container labeled with the patient's name and designated mid esophagus biopsy. The specimen consists of two irregular fragments of light francis soft tissue that in aggregate measure 0.7 x 0.4 x 0.1 cm. The specimen is totally submitted in one cassette. / SJ:rg 01/10/2023 TC:3 CPT: 48131 x5, 16590
[2023-01-10 09:10] VITALS: BP 102/40; BP 128/73; PULSE 97; RESP 65; TEMP 37.1; O2SAT 97
[2023-01-10 09:15] VITALS: BP 119/78; BP 128/73; PULSE 73; RESP 16; O2SAT 97
[2023-01-10 09:20] VITALS: BP 107/65; BP 128/73; PULSE 65; RESP 16; O2SAT 98
--- NOTE | 2023-01-10 09:21 | OP.CCLET_ITS ---
01/10/2023 Ulices Bernal MD [address] [place] [address] [place] [address] Re : Upper GI endoscopy procedure for Alem Messer Dear Dr. Bernal This procedure was performed on Tuesday, January 10, 2023. My impressions and recommendations are as follows: Impressions : - Z-line regular, 38 cm from the incisors. Biopsied. - Multiple gastric polyps. Resected and retrieved. - Normal antrum. Biopsied. - Normal examined duodenum. Biopsied. - Normal middle third of esophagus. Biopsied. Recommendations : - Discharge patient to home. - Resume previous diet. - Continue present medications. - Await pathology results. - Telephone my office for pathology results in 1 week. Gallbladder ultrasound suggested steatosis. Symptoms persist consider CT scan abdomen or hepatobiliary scan or liver stiffness evaluation. Await pathology from biopsies. My findings are described in the full procedure note, which is enclosed. If I can be of further assistance, please feel free to contact me at Doctor phone number(s): Work: . Sincerely, Neto Richardson MD 01/10/2023 9:20:38 AM This report has been signed electronically.
--- NOTE | 2023-01-10 09:21 | OP.EGD_ITS ---
Patient Name: Alem Messer Procedure Date: 01/10/2023 8:49 AM Date of : 1970 Age: 52 Procedure: Upper GI endoscopy Indications: Suspected esophageal reflux Providers: Neto Richardson MD Referring MD: Ulices Bernal MD Medicines: See the Anesthesia note for documentation of the administered medications Complications: No immediate complications. Procedure: Pre-Anesthesia Assessment: - Prior to the procedure, a History and Physical was performed, and patient medications and allergies were reviewed. The patient's tolerance of previous anesthesia was also reviewed. The risks and benefits of the procedure and the sedation options and risks were discussed with the patient. All questions were answered, and informed consent was obtained. Prior Anticoagulants: The patient has taken no previous anticoagulant or antiplatelet agents. ASA Grade Assessment: II - A patient with mild systemic disease. After reviewing the risks and benefits, the patient was deemed in satisfactory condition to undergo the procedure. After obtaining informed consent, the endoscope was passed under direct vision. Throughout the procedure, the patient's blood pressure, pulse, and oxygen saturations were monitored continuously. The gastroscope was introduced through the mouth, and advanced to the second part of duodenum. The upper GI endoscopy was accomplished without difficulty. The patient tolerated the procedure well. Scope In: 8:58:09 AM Scope Out: 9:04:17 AM Total Procedure Duration Time 0 hours 6 minutes 8 seconds Findings: The Z-line was regular and was found 38 cm from the incisors. Biopsies were taken with a cold forceps for histology. Multiple sessile polyps with no bleeding and no stigmata of recent bleeding were found on the greater curvature of the stomach. The polyp was removed with a cold biopsy forceps. Resection and retrieval were complete. The gastric antrum was normal. Biopsies were taken with a cold forceps for histology. The examined duodenum was normal. Biopsies were taken with a cold forceps for histology. The middle third of the esophagus was normal. Biopsies were taken with a cold forceps for histology. Impression: - Z-line regular, 38 cm from the incisors. Biopsied. - Multiple gastric polyps. Resected and retrieved. - Normal antrum. Biopsied. - Normal examined duodenum. Biopsied. - Normal middle third of esophagus. Biopsied. Recommendation: - Discharge patient to home. - Resume previous diet. - Continue present medications. - Await pathology results. - Telephone my office for pathology results in 1 week. Gallbladder ultrasound suggested steatosis. Symptoms persist consider CT scan abdomen or hepatobiliary scan or liver stiffness evaluation. Await pathology from biopsies. Procedure Code(s): --- Professional --- 30647, Esophagogastroduodenoscopy, flexible, transoral; with biopsy, single or multiple Diagnosis Code(s): --- Professional --- K31.7, Polyp of stomach and duodenum CPT copyright 2017 [employer]. All rights reserved. The codes documented in this report are preliminary and upon ship's engineer review may be revised to meet current compliance requirements. Neto Richardson MD 01/10/2023 9:20:38 AM This report has been signed electronically. Number of Addenda: 0 Note Initiated On: 01/10/2023 8:49 AM
[2023-01-10 09:25] VITALS: BP 107/93; BP 128/73; PULSE 65; RESP 16; TEMP 37.1; O2SAT 96
[2023-01-10 09:43] VITALS: BP 128/73
== END 2023-01-10 10:00 | disposition home or self-care (01) ==
LOC: EN 07:25 → AC 07:27
PROVIDERS: Anesthesiology; PCP Internal Medicine; Referring Provider Internal Medicine; Visit Provider Surgery
PROC: 0DJ08ZZ Inspection of Upper Intestinal Tract, Via Natural or Artificial Opening Endoscopic (ICD-10-PCS; CPT 43235; principal; 2023-01-10 08:40)
DX: K31.7 Polyp of stomach and duodenum (principal); Z87.891 Personal history of nicotine dependence; K21.9 Gastro-esophageal reflux disease without esophagitis; Z79.899 Other long term (current) drug therapy; K29.70 Gastritis, unspecified, without bleeding; I10 Essential (primary) hypertension
CPT/HCPCS: 43239; 81025; 88305; 88313; 88342; J7120; J2405

== ENCOUNTER → 2023-01-18 | Outpatient (CLI) | payer OTHER, SELFPAY ==
--- NOTE | 2023-01-18 16:10 | CT_ITS ---
STUDY: CT ABDOMEN AND PELVIS WITH CONTRAST REASON FOR EXAM: Female, 52 years old. Worsening abdominal pain. Constipation. RADIATION DOSAGE (If Supplied By Facility): CTDIvol = ( 18.74 ) mGy, DLP = ( 1317.48 ) mGycm TECHNIQUE: Transaxial images were obtained from the dome of the diaphragm to the symphysis pubis with oral contrast. Oral and amp; IV Gastrografin and amp; 100mL Isovue-300 was administered. Sagittal and coronal images were reconstructed. Individualized dose optimization techniques were used for this CT. COMPARISON: Comparison is made with prior study dated March 26, 2020. FINDINGS: The visualized lung bases are unremarkable. The visualized portions of the heart are within normal limits. There is decreased attenuation of the liver consistent with steatosis. Normal gallbladder and extrahepatic biliary system. Normal spleen. Normal pancreas. Normal bilateral adrenal glands. Normal right kidney. Normal left kidney. Normal visualized stomach. Normal small intestine. There are scattered colonic diverticula consistent with diverticulosis. The appendix is visualized and appears normal. Normal abdominal aorta. Normal inferior vena cava. Normal retroperitoneum. Normal urinary bladder. A follicle seen in the right ovary measuring 1.9 cm. Normal abdominal wall. There are degenerative changes of the visualized lumbar spine. CT/Abdomen/Pelvis WITH Contrast IMPRESSION: Scattered sigmoid diverticula. Fatty infiltration of the liver. Electronically Signed: Malcom Rachel MD at 15:07 EDT ,
[2023-01-18 16:50] LABS: EGFR FINGERSTICK > 60.0000 mL/min (>60)
== END | disposition home or self-care (01) ==
LOC: CT 16:08
PROVIDERS: PCP Internal Medicine; Referring Provider Surgery; Visit Provider Surgery
DX: K21.9 Gastro-esophageal reflux disease without esophagitis (principal); R14.0 Abdominal distension (gaseous)
CPT/HCPCS: 74177; Q9967; A4216

== ENCOUNTER → 2023-02-02 | Outpatient (CLI) | payer OTHER, SELFPAY ==
--- NOTE | 2023-02-02 08:15 | NM_ITS ---
CLINICAL: 53-year-old female with history of abdominal pain and bloating. RADIONUCLIDE HEPATOBILIARY SCINTIGRAPHY COMPARISON: CT of the abdomen-pelvis report 01/18/2023, gallbladder ultrasound report 12/20/2022 FINDINGS: Following the intravenous administration of 5.1 mCi of 99m Tc Mebrofenin, hepatobiliary images reveal: 1. Relatively prompt and homogeneous radiopharmaceutical concentration is noted by a normal sized liver. No parenchymal defects are identified. 2. Gallbladder activity is identified at 60 minutes post radiopharmaceutical administration. 3. Small intestinal tract is observed at 15 minutes following tracer injection. 4. Washout of the radiopharmaceutical by the hepatic parenchyma appears qualitatively normal. Cholecystokinin (0.02 ug/kg) was administered intravenously over a 30-minute period. The post CCK gallbladder ejection fraction calculated at 20 minutes following Cholecystokinin administration was noted to be [dv] % (normal greater than 35%). During 30 minutes of post CCK imaging, there is no scintigraphic evidence of reflux of the radiotracer into the common hepatic duct or refilling of the gallbladder. There is scintigraphic evidence of post CCK duodenal gastric reflux. NM/Hepatobilliary Img w/Pharm Int IMPRESSION: 1. A gallbladder ejection fraction calculated to be greater than 35% following the administration of Cholecystokinin makes the probability of functional hepatobiliary disease (gallbladder and/or sphincter of Oddi dyskinesia) and/or organic hepatobiliary disease (chronic acalculous cholecystitis and/or cystic duct syndrome) to be low. (Kenisha Sage et al, Journal of Nuclear Medicine 32:1695, 1990). 2. There is scintigraphic evidence of post CCK duodenal-gastric reflux as described above. (Shania et al, Nucl Med Tg [employer] Press pg. 35, 1980). Electronically Signed: Luis Cheatham, at 7:37 EDT ,
== END | disposition home or self-care (01) ==
LOC: NM 08:14
PROVIDERS: PCP Internal Medicine; Referring Provider Surgery; Visit Provider Surgery
DX: K21.9 Gastro-esophageal reflux disease without esophagitis (principal); R14.0 Abdominal distension (gaseous)
CPT/HCPCS: 78227; A9537; J2805

== ENCOUNTER → 2023-03-06 | Outpatient (CLI) | payer OTHER, SELFPAY ==
--- NOTE | 2023-03-06 13:28 | RAD_ITS ---
INDICATION: pain EXAMINATION/TECHNIQUE: X-RAY - RIGHT XR Knee Complete 4 Views or More COMPARISON: None. FINDINGS: 5 views of the right knee. BONES: Normal anatomic alignment without evidence of fracture or subluxation. No concerning bony lesion or abnormal sclerosis to suggest lesion. JOINTS: Moderate lateral patellofemoral compartment degenerative change. SOFT TISSUES: Small suprapatellar effusion. RAD/Knee 4 or More Views IMPRESSION: Degenerative change as above without acute osseous abnormality of the right knee. Electronically Signed: Sunil Edmondson MD at 23:20 EDT ,
== END | disposition home or self-care (01) ==
LOC: MTRAD 13:27
PROVIDERS: PCP Internal Medicine; Referring Provider Orthopaedic Surgery; Visit Provider Orthopaedic Surgery
DX: M25.561 Pain in right knee (principal)
CPT/HCPCS: 73564

== ENCOUNTER → 2023-04-27 | Outpatient (CLI) | payer OTHER, SELFPAY ==
--- NOTE | 2023-04-27 09:19 | MRI_ITS ---
STUDY: MRI LEFT HIP REASON FOR EXAM: Female, 53 years old. LT LATERAL DULL CONSTANT HIP PAIN, H/O PRIOR LABRAL TEAR, C/O LATERAL GLUTEAL PAIN TECHNIQUE: Standardized fat and water weighted pulse sequences were obtained in all 3 orthogonal planes. COMPARISON: June 03, 2021 FINDINGS: Normal hip joint without articular joint space narrowing. There are tracks from prior intervention in the superior acetabulum. Normal labrum. Normal femoral head. Normal femoral neck and intratrochanteric region. There is no demonstrated fracture. There is tendinosis of the distal gluteus minimus and medius. Normal iliopsoas tendon and distal insertion. There is trochanteric bursitis. Normal superior and inferior pubic rami. Normal pubic symphysis. Normal ischial tuberosity. There is tendinosis of the origins of the hamstring tendons arising from the ischial tuberosity. Normal visualized iliac wing, sacroiliac joint, and sacral ala. Normal visualized soft tissue structures of the pelvis. There is 2.3 cm left ovarian cyst. There is 1.9 cm intermediate signal mass of the posterior uterus. MRI/Lower Ext Joint Only (Routine) IMPRESSION: No fracture or avascular necrosis. Postoperative change. Tendinosis of the gluteus medius and minimus with trochanteric bursitis. Tendinosis of the proximal hamstrings. Electronically Signed: Kev De Dios MD at 8:51 EDT ,
== END | disposition home or self-care (01) ==
LOC: MRI 09:12
PROVIDERS: PCP Internal Medicine
DX: M25.552 Pain in left hip (principal)
CPT/HCPCS: 73721

== ENCOUNTER → 2023-06-08 | Outpatient (CLI) | payer OTHER, SELFPAY ==
--- NOTE | 2023-06-08 16:21 | US_ITS ---
STUDY: ULTRASOUND OF THE FEMALE PELVIS - COMPLETE REASON FOR EXAM: Female, 53 years old. PELVIC SWELLING/MASS LMP: Patient is postmenopausal. TECHNIQUE: Transvaginal TECHNICAL QUALITY: Adequate. COMPARISON: Comparison is made with prior study dated April 26, 2022. FINDINGS: The uterus is anteverted and is in a midline position. The uterus measures 9.1 cm x 5.3 cm x 4.2 cm. There is a Nabothian cyst of the cervix. The endometrium measures 8 mm in thickness, and is hyperechoic. There is no demonstrated endometrial mass. 2 fibroids are seen. The larger is in the body of the uterus and measures 2.2 cm x 1.7 cm by 1.9 cm. I.U.D. - The patient does not have an I.U.D. The right ovary is visualized. The right ovary measures 1.97 x 1.6 x 1.4 cm. There is no right ovarian cyst or ovarian mass. There is no visualized right adnexal mass or complex lesion. There is normal arterial and normal venous vascularity. The left ovary is visualized. The left ovary measures 3.9 cm x 2.9 cm x 3.7 cm. There is a 2.6 cm x 2 cm x 1.9 cm left ovarian cyst. There is no visualized left adnexal mass or complex lesion. There is normal arterial and normal venous vascularity. There is no fluid in the cul-de-sac. US/Transvaginal Non- IMPRESSION: Fibroid uterus. Thickened endometrium for the postmenopausal state. Left ovarian cyst measuring 2.6 centimeter by 2 cm x 1.9 cm. Electronically Signed: Malcom Rachel MD at 12:44 EDT ,
== END | disposition home or self-care (01) ==
LOC: US 16:20
PROVIDERS: PCP Internal Medicine; Referring Provider Obstetrics & Gynecology; Visit Provider Obstetrics & Gynecology
DX: R19.00 Intra-abdominal and pelvic swelling, mass and lump, unspecified site (principal); Z78.0 Asymptomatic menopausal state
CPT/HCPCS: 76830

== ENCOUNTER 2023-07-06 02:22 | Emergency (ER) | payer OTHER, SELFPAY ==
[2023-07-06 02:23] VITALS: BP 120/79; PULSE 79; RESP 18; TEMP 36.4; O2SAT 97; BMI 39.2
--- NOTE | 2023-07-06 02:39 | ED.VIS.GI ---
HPI HPI - GI History of Present Illness Chief Complaint: Diarrhea Detail of Chief Complaint: 24 hours of diarrhea. 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 Complaining of about 24-hour history of watery diarrhea. Denies any recent illness. No fever. No significant abdominal pain. No dysuria. Says that she does feel dehydrated. Denies any melena. Has just had watery brown stools. No prior history. No recent hospitalization. No recent antibiotics or surgery. No prior history nor any history of Crohn's or ulcerative colitis. Within the last year or 2 she has had gallbladder work-up which was unremarkable with a negative HIDA scan. She had a prior and colonoscopy that was unremarkable with no other abdominal surgeries. No recent exposure to anyone she knows was ill. Prior similar symptoms: No Recent Illness/Hospitalization: No [facility] [place] Medical History Anxiety and depression Back problem Discitis of lumbosacral region Family history of heart disease Former smoker GERD (gastroesophageal reflux disease) Health care maintenance Hypertension Left hip pain Morbid obesity PCOS (polycystic ovarian syndrome) Shortness of breath on exertion Wears glasses Home Medications multivitamin 1 cap PO DAILY 11/26/19 [History Last Taken 02/07/22 08:00] turmeric root extract 500 mg capsule 1,500 mg PO DAILY 12/18/19 [History Last Taken 02/06/22 08:00] ascorbic acid (vitamin C) 500 mg capsule 500 mg PO DAILY 03/24/20 [History Last Taken 02/07/22 08:00] cholecalciferol (vitamin D3) 50 mcg (2,000 unit) capsule 50 mcg PO DAILY 03/24/20 [History Last Taken 02/07/22 08:00] lactobacillus combination no.4 3 billion cell capsule (Probiotic) 3,000 mmu cells PO DAILY 01/09/23 [History Last Taken Unknown] ibuprofen 600 mg tablet 600 mg PO TID #60 tabs 03/06/23 [Rx Last Taken Unknown] omeprazole 10 mg capsule,delayed release 10 mg PO DAILY #90 caps 03/14/23 [Rx Last Taken Unknown] triamterene 37.5 mg-hydrochlorothiazide 25 mg tablet 1 tab PO QAM #90 tabs 05/11/23 [Rx Last Taken Unknown] Allergy/AdvReac Type Severity Reaction Status Date / Time No Known Allergies Allergy Verified 07/06/23 02:26 Family History Grandmother Diabetes type 2 Aunt Diabetes type 2 Other Anxiety and depression Surgical History H/O section History of colonoscopy History of hip surgery Social History number of children: 1 current occupational status: employed 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 Review of Systems ROS Unobtainable: Denies due to encephalopathy Constitutional Constitutional ED: Denies chills or fever(s) ENT ENT ED: Denies ear pain Cardiovascular Cardiovascular: Denies chest pain Respiratory/Chest Respiratory/Chest: Denies cough or dyspnea Gastrointestinal Gastrointestinal: Reports diarrhea; Denies abdominal pain, constipation, melena, nausea or vomiting Genitourinary Genitourinary ED: Denies dysuria or hematuria Musculoskeletal Musculoskeletal: Denies arthralgias Integumentary Denies abscess Neurologic Neurologic: Denies headache(s) Psychiatric Psychiatric: Denies anxiety Endocrine Endocrinology: Denies polydipsia Hematologic/Lymphatic Hematologic/Lymphatic: Denies easy bleeding Allergic/Immunologic Allergic/Immunologic ED: Denies mouth swelling or tongue swelling EXAM Physical Exam Narrative Exam Narrative: Well-appearing female vital signs stable afebrile. Does not look septic toxic no distress. Mildly dehydrated. HEENT exam dry mucous membranes otherwise unremarkable. Neck nontender no JVD. No lymphadenopathy. Lungs clear to auscultation bilaterally. Heart regular rhythm rate about 80 no murmur. Abdomen soft, nontender, nondistended normal bowel sounds no peritoneal signs. Right upper quadrant right lower quadrant unremarkable. Moving all 4 extremities. Nontender no edema. Neurologically she is awake and alert with no focal motor deficits. Benign exam mildly dehydrated. Const Vital Signs: 07/06/23 02:23 Temperature 97.6 F L Temperature Source Temporal Pulse Rate 79 Respiratory Rate 18 Blood Pressure 120/79 Blood Pressure Mean 92 Pulse Ox 97 Oxygen Delivery Method Room Air Positive well nourished and well developed; Negative for cachectic, contractures or unkempt General Appearance ED: well developed and NAD; Negative for unkempt, cachectic, contractures or pallor Nutritional Appearance: Negative for cachectic HEENT Reports dry mucous membranes; Denies moist mucous membranes normocephalic and atraumatic; Negative for trauma or tenderness Mouth ED: Yes dry mucous membranes Mouth: dry mucous membranes Eyes EOMs intact bilaterally General Eye ED: Negative for pale conjunctiva or scleral icterus Neck no lymphadenopathy, supple and no JVD General: Negative for tenderness Carotids: Negative for other Lymph Lymphatic: Negative for other Resp normal respiratory effort and clear to auscultation bilaterally Effort and Inspection: Negative for respiratory distress Auscultation: Negative for rales, rhonchi or wheezes Cardio regular rate, regular rhythm, S1 normal heart sound, S2 normal heart sound and no murmurs Rate: Negative for bradycardia or tachycardic Rhythm: abnormal rhythm GI non-tender, non-distended and no masses Inspection: Negative for abdominal distention Auscultation: normoactive bowel sounds Palpation: soft; Negative for tender, guarding, rigid, hepatomegaly, splenomegaly, hernia, mass, pulsatile mass or rebound tenderness present Back/Spine no CVA tenderness Extremity full ROM General Extremety ED: Negative for edema or tenderness General Extremity: Negative for edema Neuro CN's II-XII intact bilaterally and moves all extremities Sensorium / Orientation: alert, oriented to person, oriented to place and oriented to time; Negative for orientation impaired, confused, lethargic or stuporous Motor Exam: strength 5/5 throughout Psych mental status grossly normal and thought process normal Appearance: Negative for unkempt Attitude: No agitated Mood & Affect: Negative for depressed, anxious or tearful Skin General Skin Exam: Negative for jaundice or pallor Lesions: no lesions Rashes: no rashes Trauma: Negative for abrasion Nails: Negative for discolored MDM MDM MDM Narrative Medical decision making narrative: 53-year-old female with diarrhea for about 24 hours. No recent antibiotics or hospitalization. No recent surgery. Exam benign. Treated IV fluids. Screening labs being obtained. At this time I do not think she needs stool cultures or screen for C. difficile obviously if this would continue for days that may be later consideration. Abdomen is benign she does not need any imaging. Repeat exam patient doing well at 3:29 AM. Abdomen benign. We went over lab test. Fluids and rest. Imodium if not improving. Follow-up if this continues she may need stool cultures and C. difficile but she is only had it for just under 24 hours so far. Very well could be a viral syndrome. History & Record Review Discussion w/independent historian: Patient Additional record(s) reviewed:: Prior inpatient record, Prior outpatient record, Prior ED visit and Prior labs Lab Data Attestation: I reviewed the patient's lab results. Lab results narrative: CBC normal. White count of 7.5. H&H 13.9 and 41.7. Platelets 244. Electrolytes gap of 4 normal BUN and creatinine of 18 and 0.8. Liver enzymes normal. Lipase normal. Labs are completely unremarkable. Labs: Laboratory Results - last 24 hr 07/06/23 02:45 WBC 7.5 RBC 4.78 Hgb 13.9 Hct 41.7 MCV 87.2 MCH 29.1 MCHC 33.3 RDW Std Deviation 41.1 RDW Coeff of Chet 12.9 Plt Count 244 MPV 10.2 Immature Gran % (Auto) 0.100 Neut % (Auto) 61.2 Lymph % (Auto) 27.9 [place] % (Auto) 6.6 Eos % (Auto) 3.4 Baso % (Auto) 0.8 Absolute Neuts (auto) 4.6 Absolute Lymphs (auto) 2.10 Nucleated RBC % 0 Sodium 139 Potassium 3.4 L Chloride 108 H Carbon Dioxide 27.0 Anion Gap 4 L BUN 18 Creatinine 0.81 Estim Creat Clear Calc 76.06 Est GFR (MDRD) Af Amer 96 Est GFR (MDRD) Non-Af 79 BUN/Creatinine Ratio 22.2 H Glucose 95 Calcium 8.8 Total Bilirubin 0.30 AST 15 ALT 29 Alkaline Phosphatase 82 Total Protein 6.9 Albumin 3.5 Globulin 3.4 Albumin/Globulin Ratio 1.0 Lipase 66 Discharge Plan Triage Chief Complaint: Diarrhea ED Provider: Collin Urrutia Dx/Rx/DC Orders Clinical Impression: Diarrhea, Viral syndrome Instructions: ED Diarrhea, Unknown Cause Prescriptions: No Action multivitamin capsule 1 cap PO DAILY turmeric root extract 500 mg capsule 1,500 mg PO DAILY cholecalciferol (vitamin D3) 50 mcg (2,000 unit) capsule 50 mcg PO DAILY ascorbic acid (vitamin C) 500 mg capsule 500 mg PO DAILY triamterene-hydrochlorothiazid 37.5-25 mg tablet 1 tab PO QAM Qty: 90 1RF ibuprofen 600 mg tablet 600 mg PO TID Qty: 60 0RF Rx Instructions: take regularly next 7-10 days then as needed. ok to take with tylenol. Probiotic 3 billion cell Capsule 3,000 mmu cells PO DAILY Rx Instructions: administer with a meal omeprazole 10 mg capsule,delayed release(DR/EC) 10 mg PO DAILY Qty: 90 1RF Primary Care Provider: Ulices Bernal Referrals: Ulices Bernal MD [Primary Care Provider] - 3-5 Days if not improving Activity Restrictions/Additional Instructions: All your labs look good. Plenty of fluids and rest. Imodium as needed for diarrhea Follow-up with your doctor within 5 days this is not getting better. At this time you do not need stool cultures or C. difficile but if is not getting better that may be something we have to look into further. This very well may be just from a virus. Disposition Disposition: Home, Self Care
[2023-07-06] MEDS: 0.9% Normal Saline (1000mL) 1,000 ML 1000 ML IV (02:47)
[2023-07-06 02:54] LABS: Absolute Neutrophil Count 4.6 X10^3/uL (2.0-7.7); Basophil# 0.06 X10^3/uL; Basophil% 0.8 % (0-1); Eosinophil# 0.26 X10^3/uL; Eosinophils% 3.4 % (0-5); Hematocrit 41.7 % (37-47); Hemoglobin 13.9 g/dL (12.0-15.0); Lymphocyte % 27.9 % (19-41); Mean Corp Hgb Conc 33.3 g/dL (32-36); Mean Corpuscular Hgb 29.1 pg (27.0-32.0); Mean Corpuscular Volume 87.2 fL (81-99); Mean Platelet Vol. 10.2 fl (6.2-12.0); Monocyte% 6.6 % (0-10); NRBC Flagged by Analyzer 0 % (0-5); Neutrophil # 4.61 X10^3/uL (2.7-7.7); Neutrophil % 61.2 % (47-70); Platelet Count 244 K/mm3 (150-450); RBC Distribution Width CV 12.9 % (11.6-14.6); RBC Distribution Width SD 41.1 fl (35.1-43.9); Red Blood Count 4.78 M/mm3 (4.2-5.4); White Blood Count 7.5 K/mm3 (4.4-11.0)
[2023-07-06 03:11] LABS: AST(SGOT) 15 U/L (15-37); Alanine Aminotransfer ALT/SGPT 29 U/L (13-56); Albumin, Serum 3.5 g/dL (3.2-5.0); Alkaline Phosphatase 82 U/L (45-117); Anion Gap 4 (5-15); BUN 18 mg/dL (7-18); BUN/Creat Ratio 22.2 RATIO (10-20); Calcium,Total 8.8 mg/dL (8.5-10.1); Chloride 108 mmol/L (98-107); Creatinine, Serum 0.81 mg/dL (0.55-1.02); EST Glomerular Filtration Rate 79 mL/min (>60); Est Glom Filt Rate - Afr Amer 96 mL/min (>60); Estimated Creatinine Clearance 76.06 ml/min; Globulin 3.4 g/dL (2.2-4.2); Glucose 95 mg/dL (74-106); Lipase 66 U/L (13-75); Potassium 3.4 mmol/L (3.5-5.1); Protein, Total 6.9 g/dL (6.4-8.2); Sodium Level 139 mmol/L (136-145)
== END 2023-07-06 03:43 | disposition home or self-care (01) ==
PROVIDERS: Emergency Provider Emergency Medicine; PCP Internal Medicine; Visit Provider Emergency Medicine
DX: B34.9 Viral infection, unspecified (principal); R10.9 Unspecified abdominal pain; R11.2 Nausea with vomiting, unspecified; E86.0 Dehydration; R19.7 Diarrhea, unspecified; I10 Essential (primary) hypertension; K21.9 Gastro-esophageal reflux disease without esophagitis; Z87.891 Personal history of nicotine dependence
CPT/HCPCS: 80053; 83690; 85025; 96360; 99283; J7030; A4216

== ENCOUNTER 2023-08-29 08:30 | Outpatient (RCR) | payer OTHER, SELFPAY ==
--- NOTE | 2023-08-01 15:45 | HP.PTEVAL ---
Patient's Visit Information Visit Information Visit Information: JAKE COOPER is a 53 year old F referred to Physical Therapy by NEIL Mota with a diagnosis of R knee pain. Date of Evaluation: 08/01/23 Physical Therapist: Mehrdad Shoemaker DPT Visit Plan Frequency: 2x /Week Duration: 4 Weeks Plan: Start with [place] quad, HS and glute med strengthening. Progress to gym related exercises as tolerated. I discussed land vs pool. Pt. wanted to trial land, but I did leave it open to trial pool, but land is not working for her. Subjective Subjective: Pt. is here today for her initial evaluation with diagnosis of R knee pain. Pt. reports having R knee pain for a few months to a year. Pt. had a previous injection and was good, her symptoms returned about a week ago. She had another injection and is doing well. She does report having some RLE weakness and the feeling like her R leg would give out on her, but this has not happened. Pt. works in [employer] at [employer] and is on her feet alot. She does have some increased soreness after a full day. She does describe some grinding at times and popping, generally in her knee at times. Pt. reports no mech of injruy. No MRI done at this point in time. She did have an xray showing PF arthritis, but her tibial/femoral joint seemed to be good. Pt. is hopeful to reduce symptoms in order to get to a gym program without issues. Pain R knee: Pain Intensity (Out of 10): 1 Pain Intensity Range: 0 and 4 Objective Objective: POSTURE: Pt. had decent posture in stance. Pt. has good TKE in stance without lateral wt. shifting. Pt. does have some marked B knee valgus in stance, symmetrical side to side. PALPATION: Pt. has tenderness along her lateral joint line and patellar tendon. NEURO: Normal throughout. ROM: AROM: 0-2-129deg. PROM: 0-0-132deg. Pt has tight HS and IT band bilterally. MMT: RLE: knee: ext 18.1#, 17.5#; L knee: ext 23.3#, flexion: 21.1#. Hip ABD: R 17.9#, L 23.1#. GAIT: PT. has fairly normal gait pattern. Pt. does have increased B knee valgus in stance. STAIRS: Pt. is able to complete, but has difficulty with ascending, less so with descending. Pt. is able to complete with 2 HR with reciprocal pattern. Balance/Special Test Scores Lower Extremity Functional Score: 50 Goals Goal 1:: LTG: Pt. to be with HEP for quad, HS and glute strengthening in order to reduce further injury. Goal Time Frame: 4-6 Weeks Goal 2:: STG: Pt. to have increased ROM of her R knee to 0-0-130deg actively without increase in symptoms. Goal Time Frame: 2-4 Weeks Goal 3:: LTG: Pt. to have symmetrical strength between B knee extension, flexion and his abduction. Goal Time Frame: 4-6 Weeks Goal 4:: LTG: Pt. to negotiate steps with reciprocal pattern with 1 HR without increase in R knee pain. Goal Time Frame: 4-6 Weeks Goal 5:: LTG: Pt. to be I with gym program to increase further strengthening post PT. Goal Time Frame: 4-6 Weeks Rehabilitation Potential Physical Therapy Diagnosis: Pt. has signs and symptoms consistent with R knee pain with subsequent hypomobility, weakness, and difficulty with walking. Pt would benefit from PT to address the above limitations progressing back to all activities without limitations. Rehabilitation Potential: Excellent Anticipated Interventions Patient/Client Instruction: Educate patient on: Condition, Plan of Care, Risk Factors and Benefits of Fitness Program Therapeutic Exercise to Include: Strength training, Power training, Body mechanics, Postural training, Flexibilty training, In an aquatic setting, Passive ROM and Active ROM For the Purpose of:: To decrease pain, To increase ROM, To increase oxygenation perfusion, To improve muscle performance and motor function, To improve ability to perform ADL's, To improve health of tissue, To decrease soft tissue restriction and To increase flexibility/ROM Text: Thank you for the opportunity to evaluate your patient. For Medicare and Medicare HMO plans, please review the plan of care and approve it. It will need to be FAXED BACK to us at [phone] for Medicare purposes. For Medicare only, by signing this I certify the plan of care. Please let me know if there are questions or concerns regarding this plan of care. Physician Signature: Date:
--- NOTE | 2023-08-29 13:09 | HP.PTDCSUM ---
Discharge Summary D/C summary: It has been my pleasure to treat JAKE COOPER referred by NEIL Mota, with the diagnosis of R knee pain for a total of 11 visit(s). Discharge Date: 08/29/23 Please see the following information for a summary of their discharge status. Subjective Subjective: Pt. reports being 95% better overall. No pain noted. Pt. pleased with therapy and her progress. Pain R knee: Pain Intensity (Out of 10): 0 Overall Improvement % Improvement: 100 Objective Objective/Function: ROM: PT. has great ROM in B knees. Good HS length. MMT: Pt. is with in 95% bilateral LE strength, good quad and hi abd strength noted bilaterally. No issues with walking, no pain. Gym exercises are going well. Pt. is pleased with her current progress and is ready to be done with PT and progress to I program. Goals Goal 1:: LTG: Pt. to be with HEP for quad, HS and glute strengthening in order to reduce further injury. Goal Progress: Goal Met Goal 2:: STG: Pt. to have increased ROM of her R knee to 0-0-130deg actively without increase in symptoms. Goal Progress: Goal Met Goal 3:: LTG: Pt. to have symmetrical strength between B knee extension, flexion and his abduction. Goal Progress: Goal Met Goal 4:: LTG: Pt. to negotiate steps with reciprocal pattern with 1 HR without increase in R knee pain. Goal Progress: Goal Met Goal 5:: LTG: Pt. to be I with gym program to increase further strengthening post PT. Goal Progress: Goal Met Plan Plan: DC from PT at this point in time. D/C Information Discharge Comments: Pt. was treated for quad and LE strengthening progressing to gym exercises. Pt. is I with her program for gym and will be DC from PT at this point in time. d/c sentence: If there are questions or concerns regarding this patient's physical therapy, please feel free to call me at [phone]. Thank you for the referral of this patient. Sincerely, Mehrdad Butler Sipos, DPT Balance/Gait/Functional tests Balance/Special Test Scores Lower Extremity Functional Score: 58 Improvement % Improvement: 100
== END 2023-08-29 19:00 | disposition home or self-care (01) ==
LOC: PT 08:30
PROVIDERS: PCP Internal Medicine; Visit Provider Nurse Practitioner
DX: M25.561 Pain in right knee (principal)
CPT/HCPCS: 97110; 97161; 97164

== ENCOUNTER → 2023-09-22 | Outpatient (CLI) | payer OTHER, SELFPAY ==
--- NOTE | 2023-09-22 09:35 | BI_ITS ---
MAMMOGRAPHY - BILATERAL SCREENING REASON FOR EXAM: Female, 53 years old. Routine annual screening examination. PERTINENT HISTORY: Non-contributory. TECHNIQUE: Digital bilateral breast babar (3D mammographic acquisition) in the CC and MLO projections. 2-D mediolateral oblique (MLO) and craniocaudad (CC) views of both breasts were obtained. CAD: Full Field Digital Mammography with Computer Added Detection was performed. COMPARISON: Comparison is made with prior examination dated August 04, 2022 and May 12, 2021. FINDINGS: Breast Composition: There are scattered areas of fibroglandular density. There are no dominant masses or suspicious calcifications. Stable small benign-appearing bilateral axillary lymph nodes. No other significant abnormalities are identified. There has been no significant change since the prior study. BI/SCRN MAMM (CAD)W/BABAR BILAT IMPRESSION: Stable bilateral screening mammogram. Yearly follow-up mammogram recommended. (A) ASSESSMENT CATEGORY: BIRADS Category 2: Benign. A letter regarding these results will be sent to the patient by the facility within 30 days. Approximately 10% of breast cancers are not detected by mammography. A normal mammogram should not delay biopsy of a clinically suspicious abnormality. [id number] Electronically Signed: Malcom Rachel MD at 10:33 EST ,
== END | disposition home or self-care (01) ==
LOC: OPBI 09:35
PROVIDERS: PCP Internal Medicine; Visit Provider Internal Medicine
DX: Z12.31 Encounter for screening mammogram for malignant neoplasm of breast (principal)
CPT/HCPCS: 77063; 77067

== ENCOUNTER → 2023-10-26 | Outpatient (CLI) | payer OTHER, SELFPAY ==
--- NOTE | 2023-10-26 13:36 | RAD_ITS ---
STUDY: X-RAY - CERVICAL SPINE REASON FOR EXAM: Female, 53 years old. Pain TECHNIQUE: 3 view(s) of the cervical spine were obtained. COMPARISON: None FINDINGS: Normal anterior atlantoaxial articulation. Normal odontoid process. Normal cervical lordosis. Normal vertebral bodies and endplates. Normal disc space heights. The soft tissue structures are unremarkable. RAD/Cerv Spine 2 or 3 Views IMPRESSION: No acute bony injury of the visualized cervical spine. Electronically Signed: Christopher Gastelum DO at 16:32 EST ,
--- OUTSIDE RECORDS SUMMARY | 2023-10-26 16:11 | XMS RPT_ITS | CCD ---
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 Name Role Phone Miguel Ángel Bee Attending Unavailable Maria Teresa Dick Primary Care Unavailable Maria Teresa Dick Attending Unavailable Maria Teresa Dick Primary Care Unavailable Carlos Zamorano Attending UnavailMaria Teresa George Primary Care Unavailable Carlos Zamorano Admitting UnavailCarlos Carrion Attending UnavailMaria Teresa George Primary Care Unavailable Carlos Zamorano Attending UnavailMaria Teresa George Primary Care Unavailable Ulices Bernal MD Primary Care Provider Maria Teresa Dick Primary Care Provider SELF, SELF Referring Unavailable ULICES BERNAL Primary Care Unavailable JAKE JUDGE Attending Unavailable JAKE JUDGE Attending Unavailable SELF, SELF Referring Unavailable ULICES BERNAL Primary Care Unavailable JAKE JUDGE Attending Unavailable ULICES BERNAL Primary Care Unavailable JAKE JUDGE Referring Unavailable MARIA TERESA DICK Primary Care Unavailable SARAH TIWARI Attending Unavailable Allergies Allergy Classification Reported Allergen(s) Allergy Type Date of Onset Reaction(s) Facility (3 sources) HYDROmorphone Drug Allergy 3 Nausea and Vomiting [facility] Medications Current Medications Medication Drug Class(es) Dates Sig (Normalized) Sig (Original) hydroCHLOROthiazide 25 mg / triamterene 37.5 mg oral tablet (3 sources) Potassium-sparing Diuretic, Thiazide Diuretic Start: 01-30-2023 triamterene-hyd rochlorothiazid e 37.5-25 MG tablet ibuprofen 600 mg oral tablet (3 sources) Nonsteroidal Anti-inflammatory Drug Start: 03-06-2023 Ibuprofen 600 MG tablet omeprazole 10 mg delayed release oral capsule (3 sources) Proton Pump Inhibitor Start: 03-14-2023 omepraz[address] SEMAGLUTIDE, 1 MG/DOSE, SC (3 sources) SEMAGLUTIDE, 1 MG/DOSE, SC Inject under the skin. 0 Active Turmeric extract (3 sources) TURMERIC PO Take by mouth. 0 Active Completed/Discontinued Medications Medication Drug Class(es) Dates Sig (Normalized) Sig (Original) 3 ml liraglutide 6 mg/ml pen injector (1 source) GLP-1 Receptor Agonist Start: 05-10-2018 inject 0.6 mg by subcutaneous injection once daily, then inject 1.2 mg by subcutaneous injection once daily liraglutide (SAXENDA) 3 mg/0.5 mL (18 mg/3 mL) pnij Inject 0.6 mg subcutaneously once daily. After 1 week, increase to 1.2 mg daily 3 Pen 1 05/10/2018 Active Problems Active Problems Problem Classification Problem Date Documented Da te Episodic/Chronic Other connective tissue disease (2 sources) Muscle weakness; Translations: [Muscle weakness (generalized)] Onset: 05-09-2023 05-09-2023 Episodic Other endocrine disorders (1 source) Polycystic ovary syndrome; Translations: [Polycystic ovarian syndrome] Onset: 04-13-2018 04-13-2018 Chronic Other non-traumatic joint disorders (4 sources) Hip pain; Translations: [Pain in left hip] Onset: 05-09-2023 03-28-2023 Episodic Other non-traumatic joint disorders (2 sources) Pain in left hip; Translations: [Pain in left hip] Onset: 04-05-2023 Episodic Other nutritional; endocrine; and metabolic disorders (1 source) Insulin resistance; Translations: [Metabolic syndrome] Onset: 04-13-2018 04-13-2018 Chronic Unclassified (1 source) Severe obesity; Translations: [Class 3 obesity without serious comorbidity with body mass index (BMI) of 40.0 to 44.9 in adult] Onset: 04-12-2018 04-12-2018 Past or Other Problems Problem Classification Problem Date Documented Da te Episodic/Chronic Other skin disorders (1 source) Hirsutism; Translations: [Hirsutism] Onset: 04-13-2018 04-13-2018 Episodic Results Test Name Value Interpretation Reference Range Facil ity Vital Signs Date Time Vital Sign Value Performing Clinician Kelsea donis 04-05-2023 14:48-0400 Body height 167.6 cm Jake Judge MD Work Phone: [facility] 04-05-2023 14:48-0400 Body mass index (BMI) [Ratio] 41 kg/m2 Jake Judge MD Work Phone: [facility] 04-05-2023 14:48-0400 Body weight 115.21 kg Jake Judge MD Work Phone: [facility] Encounters Encounter Date Encounter Type Care Provider Facility Start: 06-01-2023 ambulatory SELF SELF [facility] Start: 06-01-2023 End: 06-01-2023 Office outpatient visit 15 minutes Jake Judge MD Work Phone: [facility] Plan of Treatment Date Care Activity Detail Author Start: 02-15-2025 DIABETES SCREEN DIABETES SCREEN [facility] Start: 06-23-2023 Influenza vaccination [facility] Start: 10-23-2022 DEPRESSION ASSESSMENT DEPRESSION ASSESSMENT [facility] Start: 04-03-2022 Tetanus vaccination TETANUS [facility] Start: 2021 SHINGRIX VACCINE (1 of 2) SHINGRIX VACCINE (1 of 2) [facility] Start: 2021 Zoster vaccine hzv live for subcutaneous use ZOSTER (SHINGLES) VACCINE (1 of 2) [facility] Start: 01-27-2016 COLOGUARD (FIT-DNA) COLOGUARD (FIT-DNA) [facility] Start: 01-27-2016 Colonoscopy COLONOSCOPY [facility] Start: 01-27-2016 COLORECTAL CANCER SCREENING COLORECTAL CANCER SCREENING [facility] Start: 01-27-[address] COLONOGRAPHY [facility] Start: 01-27-2016 FECAL OCCULT BLOOD FECAL OCCULT BLOOD [facility] Start: 01-27-2016 LIPID SCREEN LIPID SCREEN [facility] Start: 01-27-2016 Screening for malignant neoplasm of colon COLORECTAL CANCER SCREENING DISCUSSION [facility] Start: 01-27-2016 SIGMOIDOSCOPY SIGMOIDOSCOPY [facility] Start: 2011 Lipid panel LIPID SCREENING [facility] Start: 2011 Mammography MAMMOGRAM [facility] Start: 2011 Screening for malignant neoplasm of breast MAMMOGRAM SCREENING DISCUSSION [facility] Start: 2001 HPV TESTING HPV TESTING [facility] Start: 01-27-1992 PAP TESTING PAP TESTING [facility] Start: 01-27-1992 Screening for malignant neoplasm of cervix CERVICAL CANCER SCREENING DISCUSSION [facility] Start: 1990 Urine microalbumin profile DTAP,TDAP,TD (1 - Tdap) [facility] Start: 1989 HEPATITIS C SCREENING HEPATITIS C SCREENING [facility] Start: 1989 HIV SCREENING HIV SCREENING [facility] Start: 1986 HIV screening HIV SCREENING DISCUSSION [facility] Start: 1971 COVID-19 VACCINE (#1) COVID-19 VACCINE (#1) [facility] Start: 1971 HEPATITIS B (1 of 3 - 3-dose series) HEPATITIS B (1 of 3 - 3-dose series) [facility] Start: 1971 Hepatitis C screening HEPATITIS C VIRUS SCREENING [facility] Start: 1971 Potassium [Moles/volume] in Serum or Plasma POTASSIUM [facility] XR Pelvis and Hip - left Views XR HIP WITH PELVIS LEFT Imaging Routine Left hip pain 04/05/2023 2:17 PM EDT [facility] Work Phone: [facility] Immunizations Immunization Date Immunization Notes Care Provider [facility] 09-13-2022 influenza virus vaccine, unspecified formulation Jake Judge MD Work Phone: [facility] Payers Date Payer Category Payer Private Health Insurance [id number] 2022 Private Health Insurance [id number] 1970 Unknown [id number] 1970 Unknown [id number] 1970 Unknown [id number] Social History Date Type Detail Facility Start: 05-27-2014 End: 04-05-2023 Tobacco smoking status NHIS Ex-smoker [facility] History of tobacco use Current smoker [facility] History of tobacco use Cigarette Smoker [facility] Start: 05-27-2014 End: 04-05-2023 Tobacco use and exposure Smokeless tobacco non-user [facility] Start: 04-05-2023 End: 06-01-2023 Alcohol intake Current drinker of alcohol (finding) [facility] Start: 04-05-2023 End: 06-01-2023 History of Social function [facility] Start: 04-05-2023 End: 06-01-2023 Tobacco use panel [facility] Start: 04-05-2023 Tobacco Comment Quit 23 years ago [facility] Start: 04-05-2023 Alcohol Comment ocassional [facility] Start: 1970 Sex Assigned At Not on file [facility] Start: 04-12-2018 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 Referring Physician: Self, Self Insurance: Payor: AETNA / Plan: AETNA [place] / Product Type: *No Product type* / No chief complaint on file. There were no vitals taken for this visit. Pain Recent Labs No results found for: CRP No results found for: SEDRATE No results found for: WBC , WBCCOUNT , WBCFETAL , HGB , HCT , PLATELET , MCV History No past medical history on file. Past Surgical History: Procedure Laterality Date SECTION 2009 times 1 Family History: Her family history is not on file. Social History: Her reports that she has quit smoking. Her smoking use included cigarettes. She has never used smokeless tobacco. She reports current alcohol use. She reports that she does not use drugs. Outpatient Medications Prior to Visit Medication Sig Dispense Refill Ibuprofen 600 MG tablet omeprazole 10 MG Tony WELLS SEMAGLUTIDE, 1 MG/DOSE, SC Inject under the skin. triamterene-hydrochlorothiazide 37.5-25 MG tablet TURMERIC PO Take by mouth. No facility-administered medications prior to visit. Current Outpatient Medications: Ibuprofen 600 MG tablet, , Disp: , Rfl: omeprazole 10 MG Cap , , Disp: , Rfl: SEMAGLUTIDE, 1 MG/DOSE, SC, Inject under the skin., Disp: , Rfl: triamterene-hydrochlorothiazide 37.5-25 MG tablet, , Disp: , Rfl: TURMERIC PO, Take by mouth., Disp: , Rfl: Allergies: She is allergic to dilaudid [hydromorphone]. HPI: Patient is here today for evaluation of her left hip pain. A pleasant 53 y.o. female with a history of progressive decline, physical function and decreased quality of life secondary to the hip pain. In 2020, she had arthrogram with subsequent labral tear repair. The pain persisted, an ultrasound was done and abductor muscle tearing was identified with repair recommended however she elected to not have surgical intervention at that time. She presented to my office on 04/05/23, repeat MRI was ordered. She reports she seems to be feeling better, does still have some lateral discomfort however she feels its improved since last visit. She is here today to go over MRI study. Her pain is a 2/10. PHYSICAL EXAM: This is an alert, oriented, and age-appropriate female. She is in no distress. Pleasant and cooperative. EXTREMITIES: Lower extremities have no gross deformity. Normal stability. 5/5 motor. Intact sensation. Normal coordination. Skin intact. Left hip demonstrates full rotation, mild lateral tenderness over the greater trochanter. Normal gait. No trendelenburg gait. Contralateral hip has full and supple motion. No pain. No impingement. No instability. Normal neurovascular status in lower extremities bilaterally. MRI LEFT HIP at [facility] on 04/27/23 IMPRESSION: 1.) No fracture or avascular necrosis. Postoperative change. 2.) Tendinosis of the gluteus medius and minimus with trochanteric bursitis. 3.) Tendinosis of the proximal hamstrings. IMPRESSION: Partial thickness abductor muscle tearing, left hip. PLAN: I reviewed my findings with Alem. We discussed the diagnosis, radiographs, physical exam findings and treatment options. We reviewed her MRI study together which demonstrated suspicious for partial tearing however she has good strength, mild discomfort and normal gait on exam today. At this time, recommended formal PT and NSAIDS but advised against trochanteric injection as it potentially could cause further deterioration to integrity of tendon. She desires no treatment today but understands she's to call my office should she notice any sudden changes in gait or increase in discomfort. All questions were answered to her satisfaction. Next appointment left open to her. I have reviewed the findings of my clinical staff below and agree with their assessment. There were no vitals filed for this visit. Pain Recent Labs No results found for: CRP No results found for: SEDRATE No results found for: WBC , WBCCOUNT , WBCFETAL , HGB , HCT , PLATELET , MCV No past medical history on file. Past Surgical History: Procedure Laterality Date SECTION 2008 times 1 History reviewed. No pertinent family history. Social History Socioeconomic History Marital status: Single Tobacco Use Smoking status: Former Types: Cigarettes Smokeless tobacco: Never Tobacco comments: Quit 23 years ago Substance and Sexual Activity Alcohol use: Yes Comment: ocassional Drug use: Never Current Outpatient Medications: Ibuprofen 600 MG tablet, , Disp: , Rfl: omeprazole 10 MG Tony WELLS, , Disp: , Rfl: SEMAGLUTIDE, 1 MG/DOSE, SC, Inject under the skin., Disp: , Rfl: triamterene-hydrochlorothiazide 37.5-25 MG tablet, , Disp: , Rfl: TURMERIC PO, Take by mouth., Disp: , Rfl: Allergies Allergen Reactions Dilaudid [Hydromorphone] Nausea and Vomiting documented in this encounter [facility] Progress note 05-09-2023 Note Date & Type Note Facility 05-09-2023 Note HNO ID: [id number] Author: Sarah Tiwari, MIKAELA Service: ? Author Type: Physical Therapist Type: Progress Notes Filed: 06/22/2023 2:05 PM Note Text: 06/22/[address] [facility] REHABILITATION AND SPORTS THERAPY PHYSICAL THERAPY DISCONTINUANCE OF CARE Plan of Care Period: Start of Care Date: 05/09/23 Last Visit Date: 05/09/2023 Therapy Program: Patient did not return for follow up care as planned. Please refer to last visit note for interventions provided for this episode of care. Assessment: Unable to formally assess goal achievement. Reason for Discontinuation of Care: Patient has not returned to therapy or scheduled additional follow-up appointments. Sarah oPpe PT Episode Visit Count: 1 Therapist That Will Accept/Oversee The Plan Of Care: Sarah Pope Start of Care Date: 05/09/23 Onset Date: 05/09/20 Plan of Care Certification Date: 05/09/23 Next Certification Due Date: 07/08/23 Patient Identified by Name and Date of : Yes REHABILITATION AND SPORTS THERAPY PHYSICAL THERAPY EVALUATION PLAN OF CARE: Assessment: Alem Messer presents with chief complaint of L hip pain that interferes with stair negotiation, physical activities . She presents with impairments in decreased core strength; decreased flexibility in BLE. PROMIS? (Patient-Reported Outcomes Measurement Information System) scores were reviewed and physical function domain identified as a rehabilitation concern. Prognosis for therapy is Good due to: current objective clinical presentation . She will benefit from skilled therapy services to meet the goals established for this plan of care as noted below. Goals for Episode of Care: created on 05/09/23 through 07/08/23 [place] in home exercise program. Patient will demonstrate increase in core strength to at least 4/5 during manual muscle testing in order to improve function for prior functional tasks. Patient will increase flexibility of BLE to WNL to decrease pain. Patient reports at least 80% improvement in hip pain compared to IE. Patient reports at least 80% improvement in bladder leaks while jumping compared to evaluation in order to increase bladder function in activities of daily living. Patient Goals: improve hip pain Planned Interventions, Frequency, and Duration: Current Frequency: 1x/week Duration: 4 weeks (reassess at 4 weeks and progress as indicated) Total Number of Visits Planned: 4 Planned Treatment Interventions: Therapeutic exercise (40561), Manual therapy (80673), Self-detention management (79274), Patient/Family/Caregiver Education PLAN FOR NEXT VISIT: PF mm assessment Patient demonstrates good understanding of plan of care and treatment. The above goals and plan of care were discussed and agreed upon by patient/family. SUBJECTIVE: Pt reports L lateral hip pain began a few years ago, had a labral repair in August 2020. Pt reports having low back issues, and once that cleared up, hip pain improved. Pt reports history of pelvic pain and bloating, which has since resolved. Pt reports intermittent ANDRIY. 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 PAST MEDICAL HISTORY Diagnosis Date PCOS (polycystic ovarian syndrome) PAST SURGICAL HISTORY Procedure Laterality Date KNEE ARTHROSCOPY Intake Information: Prescription present Previous Treatment: None Falls Interview: No positive findings with falls interview Aquatic Screen: No Pain: Pain Pain Level: 1 Pain Location: Hip - Left Description: Dull Frequency: Intermittent Post Treatment Pain Post Treatment Pain Level: No Change PROMIS Scales Higher is Better 05/09/2023 Phys Func - Score 39 (moderate dysfunction) Phys Func - Percentile 14 % Self-Eff Symptom - Score 43 (Average) Self-Eff Symptom - Percentile 24 % T-scores: mean of general population = 50. 5 points is clinically meaningfully difference Percentiles provide an indication of how the patient's score ranks in relation to the general population. Higher percentile rankings indicate better function/quality of life. 50th percentile is the average of the general population and indicates half of respondents had a worse score. OBJECTIVE MEASURES WITH LEVEL OF FUNCTION: Pelvic Floor Pain with penetration: No Urinary/Bowel History : Urinary History, Bowel History Difficulty starting stream: No Incomplete emptying: No Stress Incontinence: Jumping Urgency: No Nocturia (times per night): (0-1) Daytime Frequency (hours): 2-4 Fluid Intake: Water (8 oz measurements) Water : 10+ Difficulty evacuating / Excessive Straining: (more content not included)... [facility] History of Present illness Narrative 05-09-2023 Sarah Ellis, PT - 05/09/2023 8:47 AM EDT Note Date & Type Note Facility 05-09-2023 History of Presen t illness Narrative Episode Visit Count: 1 Therapist That Will Accept/Oversee The Plan Of Care: Sarah Pope Start of Care Date: 05/09/23 Onset Date: 05/09/20 Plan of Care Certification Date: 05/09/23 Next Certification Due Date: 07/08/23 Patient Identified by Name and Date of : Yes REHABILITATION AND SPORTS THERAPY PHYSICAL THERAPY EVALUATION PLAN OF CARE: Assessment: Alem Messer presents with chief complaint of L hip pain that interferes with stair negotiation, physical activities . She presents with impairments in decreased core strength; decreased flexibility in BLE. PROMIS (Patient-Reported Outcomes Measurement Information System) scores were reviewed and physical function domain identified as a rehabilitation concern. Prognosis for therapy is Good due to: current objective clinical presentation . She will benefit from skilled therapy services to meet the goals established for this plan of care as noted below. Goals for Episode of Care: created on 05/09/23 through 07/08/23 [place] in home exercise program. Patient will demonstrate increase in core strength to at least 4/5 during manual muscle testing in order to improve function for prior functional tasks. Patient will increase flexibility of BLE to WNL to decrease pain. Patient reports at least 80% improvement in hip pain compared to IE. Patient reports at least 80% improvement in bladder leaks while jumping compared to evaluation in order to increase bladder function in activities of daily living. Patient Goals: improve hip pain Planned Interventions, Frequency, and Duration: Current Frequency: 1x/week Duration: 4 weeks (reassess at 4 weeks and progress as indicated) Total Number of Visits Planned: 4 Planned Treatment Interventions: Therapeutic exercise (33988), Manual therapy (09658), Self-detention management (64027), Patient/Family/Caregiver Education PLAN FOR NEXT VISIT: PF mm assessment Patient demonstrates good understanding of plan of care and treatment. The above goals and plan of care were discussed and agreed upon by patient/family. SUBJECTIVE: Pt reports L lateral hip pain began a few years ago, had a labral repair in August 2020. Pt reports having low back issues, and once that cleared up, hip pain improved. Pt reports history of pelvic pain and bloating, which has since resolved. Pt reports intermittent ANDRIY. 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 PAST MEDICAL HISTORY Diagnosis Date PCOS (polycystic ovarian syndrome) PAST SURGICAL HISTORY Procedure Laterality Date KNEE ARTHROSCOPY Intake Information: Prescription present Previous Treatment: None Falls Interview: No positive findings with falls interview Aquatic Screen: No Pain: Pain Pain Level: 1 Pain Location: Hip - Left Description: Dull Frequency: Intermittent Post Treatment Pain Post Treatment Pain Level: No Change PROMIS Scales Higher is Better 05/09/2023 Phys Func - Score 39 (moderate dysfunction) Phys Func - Percentile 14 % Self-Eff Symptom - Score 43 (Average) Self-Eff Symptom - Percentile 24 % T-scores: mean of general population = 50. 5 points is clinically meaningfully difference Percentiles provide an indication of how the patient's score ranks in relation to the general population. Higher percentile rankings indicate better function/quality of life. 50th percentile is the average of the general population and indicates half of respondents had a worse score. OBJECTIVE MEASURES WITH LEVEL OF FUNCTION: Pelvic Floor Pain with penetration: No Urinary/Bowel History : Urinary History, Bowel History Difficulty starting stream: No Incomplete emptying: No Stress Incontinence: Jumping Urgency: No Nocturia (times per night): (0-1) Daytime Frequency (hours): 2-4 Fluid Intake: Water (8 oz measurements) Water : 10+ Difficulty evacuating / Excessive Straining: No Incomplete emptying: No Bowel Movement Frequency: 1x/day Fecal incontinence: No Bowel Aides / Supplements: Miralax. Pelvic Floor Muscle Assessment Consent for pelvic assessment/testing and treatment: Patient was educated regarding pelvic floor physical therapy assessment/treatment which may include pelvic floor and girdle muscle assessment externally or internally (vaginal or rectal approach)., Patient verbalized consent for the above treatment approaches today. Patient understands they have control of the treatment and an opportunity to stop treatment at any time. Pelvic Floor Manual Assessment External Pelvic Region Tenderness/ Hyperactivity - Lower Extremity: Glut medius, ITB ITB: Left (TTP) Glut medius: Left (TTP) LE AROM R LE AROM: WFL L LE AROM: WFL LE Flexibility Flexibility: Hamstring Flexibility, Hip Adductor, Hip Internal Rotation Flexibility, Hip External Rotation Flexibility R Hamstring Flexibility: Min restrictions L Hamstring Flexibility: Min restrictions R Adductor Flexibility: Min restrictions L Adductor Flexibility: Min restrictions R Hip Internal Rotation Flexibility: Min restrictions L Hip Internal Rotation Flexibility: Min restrictions R Hip External Rotation Flexibility: Min restrictions L Hip External Rotation Flexibility: Min restrictions LE Strength Trunk Strength: Lower Abdominals: 3/5 R LE Strength: 5/5 L LE Strength: 5/5 Education: Education Learning Preferences: Demonstration, Explanation, Performance, Printed Materials Barriers: None Learning/educational needs: Home exercise program, Plan of Care Education Provided: Yes, see treatment interventions for education provided Education Provided To: Patient Education Mode/Type: Demonstration, Explanation/Discussion, Literature/Printed Materials, Performance Response to Education/Teach Back: States/Identifies, Return Demonstration TREATMENT: PT Treatment Interventions: Therapeutic Exercise, Self-Fdc Management Evaluation Therapeutic Exercise: 1: *piriformis stretch, [id number] each 2: *supine 90/90 hamstring stretch, [id number] each 3: *bridge with glute activation, 2x10 4: *isometric hip adduction, 2x10 5: *knack technique Skilled Intervention: Patient was educated in proper exercise technique and purpose for exercises. Reviewed and educated patient on additions/changes for home exercise program as above (*). Skilled judgment was provided in selection of appropriate interventions. Provided written instruction for home exercise program to facilitate proper performance and compliance. Self-Fdc Management: 1: Reviewed pelvic floor anatomy and function with 3D pelvic model 2: Reviewed typical vs dysfunctional bladder health 3: Reviewed impact of mm weakness and tightness on pain Skilled Intervention: Skilled judgment in the selection of proper modification for activity of daily living/home management based on clinical presentation, deficits, and needs. Provided written instruction for activities of daily living techniques to facilitate proper performance and compliance. Billing * Evaluation Low Complexity: 1 Unit Therapeutic Exercise Treatment Minutes: 16 Self-Care/Home Management Treatment Minutes: 10 Total Treatment Time Minutes (timed/untimed): 48 Sarah Pope PT documented in this encounter [facility] History of Present illness Narrative 04-05-2023 Jovan Jacobs LPN - 04/05/2023 2:30 PM EDTSghazala Judge MD - 04/05/2023 2:30 PM EDT Note Date & Type Note Facility 04-05-2023 History of Presen t illness Narrative Ortho Nurse - Patient Intake Room#: 2 Left hip pain of 2, had an arthrogram and a subsequent labral tear was repaired, the pain continued and an ultrasound was down and abductor tears were diagnosed, she elected to have no surgery, this was in 2020, she wants a second opinion as to managing the pain herself or is she hurting herself by not having a surgery Date: 04/05/2023 2:49 PM Patient: Alem Messer MR#: [id number] : 1970 Age: 53 y.o. Referring Physician: Self, Self Insurance: Payor: [employer] / Plan: [employer] [place] / Product Type: *No Product type* / Chief Complaint Patient presents with Left Hip - Pain There were no vitals taken for this visit. Pain Recent Labs No results found for: CRP No results found for: SEDRATE No results found for: WBC , WBCCOUNT , WBCFETAL , HGB , HCT , PLATELET , MCV History No past medical history on file. No past surgical history on file. Family History: Her family history is not on file. Social History: Her has no history on file for tobacco use, alcohol use, and drug use. Additional Social History Y N Notes Do you live alone? [x] [] Who lives with you: Do you have children? [] [] How many: Do you currently work? 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 [] [x] How many do you have to climb to enter your home: What services do you currently receive at home? [] [x] Name: Do you have transportation to go to outpatient therapy if needed? [x] [] What Equipment do you have at home? [] [x] []Walker, []Crutches, []Commode Chair, []Shower []Chair, []cane, []bracing Are you followed by a university registrar? [] [x] Name: Are you followed by pain management? [] [x] Name: Are you followed by any other specialists? [] [x] Name: No outpatient medications prior to visit. No facility-administered medications prior to visit. No current outpatient medications on file. Allergies: She has no allergies on file. Y N Are you allergic to any metals? [] [x] If yes, what metals: Review of Systems System Y N Symptoms Constitutional [] [x] Weight Loss [] [x] Weight Gain [] [x] Chronic Fever [] [x] Insomnia Eyes [] [x] Resent Vision Change [] [x] Cataracts [] [x] Glaucoma [] [x] Any Hx of Metal Fragments in the Eye ENT [] [x] Loss of hearing [] [x] Hearing Aids [x] [] Seasonal Allergies [] [x] Dental Issues Cardiovascular [] [x] Chest Pain [] [x] Angina [] [x] Stent [x] [] Hypertension [] [x] Heart Murmur [] [x] Irregular Pulse [] [x] Pacemaker [] [x] Palpitations [] [x] High cholesterol Respiratory [] [x] Wheezing [] [x] Shortness of Breath [] [x] Pneumonia [] [x] Bronchitis [] [x] Sleep Apnea [] [x] COPD [] [x] Date/ LOC of last CXR: Gastrointestinal [x] [] Heartburn [] [x] Indigestion [] [x] Constipation [] [x] Ulcer [] [x] GI Stomach Bleed [] [x] Diarrhea [] [x] Colon Cancer [x] [] Acid Reflux [] [x] Blood in Stools Musculoskeletal [] [x] Arthritis [] [x] Muscle Weakness [x] [] Joint Pain [] [x] Back Pain [] [x] Fibromyalgia [] [x] Bone Infection [] [x] Swelling - Multiple Joints [] [x] Reflex Sympathetic Dystrophy Skin [] [x] Chronic Rash [] [x] Ulcers [] [x] Eczema [] [x] Psoriasis [] [x] Skin Cancer [] [x] Melanoma Neurologic [] [x] Numbness [] [x] Weakness or loss of sensation in arms or legs [] [x] Leg Pain / Sciatica [] [x] Headaches [] [x] Loss of bowel or bladder control Psychiatric [] [x] Anxiety [] [x] Claustrophobia [] [x] Other Psychiatric Problems Hematologic [] [x] Easy Bruising [] [x] Easy Bleeding [] [x] Blood Transfusion Date: Endocrine [] [x] Hypothyroid [] [x] Hyperthyroid [] [x] Hot Flashes [] [x] Hormone Replacement [x] [] Prednisone Use Does pt have dentures? no HPI: Patient is here today for evaluation of her left hip pain. She is a new patient for me. Here today as a self referral. A pleasant 53 y.o. female with a history of progressive decline, physical function and decreased quality of life secondary to the hip pain. In 2020, she had arthrogram with subsequent labral tear repair. The pain persisted, an ultrasound was done and abductor muscle tearing was identified. She elected to not have surgical intervention. Her pain is a 2/10. She is here today as a 2nd opinion. PHYSICAL EXAM: This is an alert, oriented, and age-appropriate female. She is in no distress. Pleasant and cooperative. EXTREMITIES: Lower extremities have no gross deformity. Normal stability. 5/5 motor. Intact sensation. Normal coordination. Skin intact. Left hip demonstrates full and supple rotation. Mild palpable lateral tenderness. Contralateral hip has full and supple motion. No pain. No impingement. No instability. Normal neurovascular status in lower extremities bilaterally. IMAGING: Plain film radiographs were reviewed. There is age appropriate wear of joint spacing with some posterior pelvic tilt. IMPRESSION: 1.) Abductor muscle tearing, left side as demonstrated by ultrasound. 2.) History of labral repair in 2020, left side. PLAN: I have reviewed my findings with the patient. We have gone over the diagnosis, radiographs, physical exam findings, past medical and surgical history and treatment options together. To obtain a more concrete idea of what is going on in the internal hip, MRI of the left hip will be ordered to further diagnose the integrity of the abductor muscles. I will see her back pending MRI study. All questions were answered to her satisfaction. I have reviewed the findings of my clinical staff below and agree with their assessment. Vitals: 04/05/23 1448 Weight: 115.2 kg (254 lb) Height: 1.676 m (5' 6 ) Pain Presence of Pain: complains of pain/discomfort Pain Location: hip, left Select Pain Scale: DVPRS (Defense and Veterans Pain Rating Scale) (Adult-Cognitively Intact) Pain Location: hip, left Select Pain Scale: DVPRS (Defense and Veterans Pain Rating Scale) (Adult-Cognitively Intact) Recent Labs No results found for: CRP No results found for: SEDRATE No results found for: WBC , WBCCOUNT , WBCFETAL , HGB , HCT , PLATELET , MCV No past medical history on file. Past Surgical History: Procedure Laterality Date SECTION 2009 times 1 History reviewed. No pertinent family history. Social History Socioeconomic History Marital status: Single Tobacco Use Smoking status: Former Types: Cigarettes Smokeless tobacco: Never Tobacco comments: Quit 23 years ago Substance and Sexual Activity Alcohol use: Yes Comment: ocassional Drug use: Never Current Outpatient Medications: Ibuprofen 600 MG tablet, , Disp: , Rfl: omeprazole 10 MG Tony WELLS, , Disp: , Rfl: SEMAGLUTIDE, 1 MG/DOSE, SC, Inject under the skin., Disp: , Rfl: triamterene-hydrochlorothiazide 37.5-25 MG tablet, , Disp: , Rfl: TURMERIC PO, Take by mouth., Disp: , Rfl: Allergies Allergen Reactions Dilaudid [Hydromorphone] Nausea and Vomiting documented in this encounter [facility] Evaluation note Note Date & Type Note Facility documented in this encounter [facility] Evaluation note Note Date & Type Note Facility documented in this encounter [facility] Evaluation note Note Date & Type Note Facility documented in this encounter [facility] Summary Purpose Family History No Family History Records FoundNo Family History Records FoundNo Family History Records FoundNo Family History Records FoundNo Family History Records Found Advance Directives No Advanced Directives Records FoundNo Advanced Directives Records FoundNo Advanced Directives Records FoundNo Advanced Directives Records FoundNo Advanced Directives Records Found Reason for Referral Specialty Diagnoses / Procedures Referred By Contac t Referred To Contact Diagnoses Left hip pain Procedures XR HIP WITH PELVIS LEFT Jake Judge MD [address] [place] [address] Referral ID Status Reason Start Date Expiration Date V isits Requested Visits Authorized [id number] Pending Review 03/28/2023 04/21/2024 1 1 Specialty Diagnoses / Procedures Referred By Contac t Referred To Contact [facility] Diagnoses Pain in left hip Muscle weakness Procedures PT REHAB FOLLOW UP ORDER THERAPEUTIC EXERCISES RE, EA 15 MIN. Sarah Ellis, PT [address] [place] [address] [facility] [address] [place] [address] Referral ID Status Reason Start Date Expiration Date Visits Requested Visits Authorized [id number] Pending Review PCP Requested Referral Auto-Generate d Referral 05/09/2023 08/07/2023 1 1 Additional Source Comments INFORMATION SOURCE (unrecogn ized section and content) DATE CREATED AUTHOR AUTHOR'S ORGANIZ ATION 01/31/2019 [facility] DATE CREATED AUTHOR AUTHOR'S ORGANIZ ATION 02/03/2022 [facility] DATE CREATED AUTHOR AUTHOR'S ORGANIZ ATION 06/09/2023 [facility] DATE CREATED AUTHOR AUTHOR'S ORGANIZ ATION 06/23/2023 [facility] Reason for Visit (unrecogniz ed section and content) Referral ID Status Reason Start Date Expiration Date V isits Requested Visits Authorized [id number] Pending Review 03/28/2023 04/21/2024 1 1 Reason Comments Pain Reason Comments PT Eval Specialty Diagnoses / Procedures Referred By Contac t Referred To Contact Physical Therapy / PHYSICAL THERAPY Diagnoses Other symptoms and signs involving the musculoskeletal system hx gluteus minimus, medius tear R29.898 Other symptoms and signs involving the musculoskeletal system Procedures NEW RS PT PELVIC PAIN/INCONT Self Sarah Ellis, PT [address] [place] [address] Referral ID Status Reason Start Date Expiration Date V isits Requested Visits Authorized [id number] Authorized 10/23/2022 10/22/2023 99 99 Reason Comments Pain Care Teams (unrecognized sec tion and content) [employer] Machine Operator Relationship Specialty Start Date End Date Ulices Bernal MD [address] [id number] PCP - General Internal Medicine 04/05/23 [employer] Machine Operator Relationship Specialty Start Date End Date Maria Teresa Dick [address] [place] [address] PCP - General Family Medicine 03/24/14 [employer] Machine Operator Relationship Specialty Start Date End Date Ulices Bernal MD [address] [phone] PCP - General Internal Medicine 04/05/23 Source Comments (unrecognize d section and content) In the event this informatio n is protected by the Federal Confidentiality of Alcohol and Drug Abuse Patient Records regulations: The Federal rules restrict any use of the information to criminally investigate or prosecute any alcohol or drug abuse patient.[facility] FOR RECORDS PERTAINING TO PATIENTS WHO ARE OR HAVE BEEN ENROLLED IN A CHEMICAL DEPENDENCY/SUBSTANCEABUSE PROGRAM, SOME INFORMATION MAY BE OMITTED. This clinical summary was aggregated from multiple sources. Caution should be exercised in using it in the provision of clinical care. This summary normalizes information from multiple sources, and as a consequence, information in this document may materially change the coding, format and clinical context of patient data. In addition, data may be omitted in some cases. CLINICAL DECISIONS SHOULD BE BASED ON THE PRIMARY CLINICAL RECORDS. [facility]. provides no warranty or guarantee of the accuracy or completeness of information in this document.
== END | disposition home or self-care (01) ==
LOC: MTRAD 13:36
PROVIDERS: PCP Internal Medicine; Referring Provider Orthopaedic Surgery; Visit Provider Orthopaedic Surgery
DX: M54.2 Cervicalgia (principal)
CPT/HCPCS: 72040

== ENCOUNTER → 2023-11-14 | Outpatient (CLI) | payer OTHER, SELFPAY ==
--- NOTE | 2023-11-14 07:42 | MRI_ITS ---
STUDY: MRI UPPER EXTREMITY LEFT HUMERUS WITHOUT CONTRAST REASON FOR EXAM: Female, 53 years old. Pain - upper arm, attention bone and muscle. TECHNIQUE: Standardized fat and water weighted pulse sequences were obtained in all 3 orthogonal planes. COMPARISON: None. FINDINGS: Normal subcutis adipose space. There is no demonstrated solid, cystic, or lipomatous mass within the subcutaneous adipose space. Normal visualized muscles and fascia. There is no demonstrated intramuscular mass lesion or hematoma. Normal visualized neurovascular bundles. Normal humerus. MRI/Upper Ext/No Jt/ wo IMPRESSION: Normal unenhanced MRI of the left upper extremity. Electronically Signed: Hal Harris MD at 9:15 EST ,
--- OUTSIDE RECORDS SUMMARY | 2023-11-14 08:06 | XMS RPT_ITS | CCD ---
Author Name Unknown Address [address] [place] [address] Organization [facility] Care Team Providers Care Explosive Operator Grenade Name Role Phone Miguel Ángel Bee Attending [...] HYDROmorphone Drug Allergy 3 Nausea and Vomiting [facility] Medications Current Medications Medication Drug Class(es) Dates [...] 167.6 cm Jake Judge MD Work Phone: [facility] 04-05-2023 14:48-0400 Body mass index (BMI) [Ratio] 41 kg/m2 Jake Judge MD Work Phone: [facility] 04-05-2023 14:48-0400 Body weight 115.21 kg Jake Judge MD Work Phone: [facility] Encounters Encounter Date Encounter Type Care Provider Facility Start: 06-01-2023 ambulatory SELF SELF [facility]formerly [facility] Start: 06-01-2023 End: 06-01-2023 Office outpatient visit 15 minutes Jake Judge MD Work Phone: [facility] Orthopedics Plan of Treatment Date Care Activity Detail Author Start: 02-15-2025 DIABETES SCREEN DIABETES SCREEN [facility] Start: 06-23-2023 Influenza vaccination [facility] Start: 10-23-2022 DEPRESSION ASSESSMENT DEPRESSION ASSESSMENT [facility] Start: 04-03-2022 Tetanus vaccination TETANUS [facility] Start: 2021 SHINGRIX VACCINE (1 of 2) SHINGRIX VACCINE (1 of 2) [facility] Start: 2021 Zoster vaccine hzv live for subcutaneous use ZOSTER (SHINGLES) VACCINE (1 of 2) [facility] Start: 01-27-2016 COLOGUARD (FIT-DNA) COLOGUARD (FIT-DNA) [facility] Start: 01-27-2016 Colonoscopy COLONOSCOPY [facility] Start: 01-27-2016 COLORECTAL CANCER SCREENING COLORECTAL CANCER SCREENING [facility] Start: 01-27-[address] COLONOGRAPHY [facility] Start: 01-27-2016 FECAL OCCULT BLOOD FECAL OCCULT BLOOD [facility] Start: 01-27-2016 LIPID SCREEN LIPID SCREEN [facility] Start: 01-27-2016 Screening for malignant neoplasm of colon COLORECTAL CANCER SCREENING DISCUSSION [facility] Start: 01-27-2016 SIGMOIDOSCOPY SIGMOIDOSCOPY [facility] Start: 2011 Lipid panel LIPID SCREENING [facility] Start: 2011 Mammography MAMMOGRAM [facility] Start: 2011 Screening for malignant neoplasm of breast MAMMOGRAM SCREENING DISCUSSION [facility] Start: 2001 HPV TESTING HPV TESTING [facility] Start: 01-27-1992 PAP TESTING PAP TESTING [facility] Start: 01-27-1992 Screening for malignant neoplasm of cervix CERVICAL CANCER SCREENING DISCUSSION [facility] Start: 1990 Urine microalbumin profile DTAP,TDAP,TD (1 - Tdap) [facility] Start: 1989 HEPATITIS C SCREENING HEPATITIS C SCREENING [facility] Start: 1989 HIV SCREENING HIV SCREENING [facility] Start: 1986 HIV screening HIV SCREENING DISCUSSION [facility] Start: 1971 COVID-19 VACCINE (#1) COVID-19 VACCINE (#1) [facility] Start: 1971 HEPATITIS B (1 of 3 - 3-dose series) HEPATITIS B (1 of 3 - 3-dose series) [facility] Start: 1971 Hepatitis C screening HEPATITIS C VIRUS SCREENING [facility] Start: 1971 Potassium [Moles/volume] in Serum or Plasma POTASSIUM [facility] XR Pelvis and Hip - left Views XR HIP WITH PELVIS LEFT Imaging Routine Left hip pain 04/05/2023 2:17 PM EDT [facility] Work Phone: [facility] Immunizations Immunization Date Immunization Notes Care Provider [facility] 09-13-2022 influenza virus vaccine, unspecified formulation Jake Judge MD Work Phone: [facility] Payers Date Payer Category Payer Private Health Insurance [id number] 2022 Private Health Insurance [id number] 1970 Unknown [id number] 1970 Unknown [id number] 1970 Unknown [id number] Social History Date Type Detail Facility Start: 05-27-2014 End: 04-05-2023 Tobacco smoking status NHIS Ex-smoker [facility] History of tobacco use Current smoker [facility] History of tobacco use Cigarette Smoker [facility] Start: 05-27-2014 End: 04-05-2023 Tobacco use and exposure Smokeless tobacco non-user [facility] Start: 04-05-2023 End: 06-01-2023 Alcohol intake Current drinker of alcohol (finding) [facility] Start: 04-05-2023 End: 06-01-2023 History of Social function [facility] Start: 04-05-2023 End: 06-01-2023 Tobacco use panel [facility] Start: 04-05-2023 Tobacco Comment Quit 23 years ago [facility] Start: 04-05-2023 Alcohol Comment ocassional [facility] Start: 1970 Sex Assigned At Not on file [facility] Start: 04-12-2018 Alcohol intake Current non-dr chemist biological of alcohol (finding) [facility] National Score (1-10 0), lower number is lower risk 62 [facility] History of Present illness Narrative 06-01-2023 Jovan Jacobs LPN - 06/01/2023 3:20 PM Jace Judge MD - 06/01/2023 3:20 PM EDT Note Date & Type Note Facility 06-01-2023 History of Presen t illness Narrative Ortho Nurse - Established Patient Intake Room#: 2 MRI results left hip, pain of 2, brought disc with her today Date: 06/01/2023 4:05 PM Patient: Alem Messer MR#: [id number] : 1970 Age: 53 y.o. Referring Physician: [...] lower extremities bilaterally. MRI LEFT HIP at [facility] on 04/27/23 IMPRESSION: 1.) No fracture [...] Nausea and Vomiting documented in this encounter [facility] Progress note 05-09-2023 Note Date & Type Note Facility 05-09-2023 Note HNO ID: [id number] Author: Sarah Tiwari, MIKAELA Service: ? Author Type: Physical Therapist Type: Progress Notes Filed: 06/22/2023 2:05 PM Note Text: 06/22/2023 [facility] PHYSICAL THERAPY [...] therapy or scheduled additional follow-up appointments. Sarah Pope PT Episode Visit Count: 1 Therapist That [...] of Care: created on 05/09/23 through 07/08/23 [place] in home exercise program. 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 PAST [...] / Excessive Straining: (more content not included)... [facility] History of Present illness Narrative 05-09-2023 Sarah [...] of Care: created on 05/09/23 through 07/08/23 Irion in home exercise program. 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 PAST [...] Demonstration TREATMENT: PT Treatment Interventions: Therapeutic Exercise, Self-[facility] Management Evaluation Therapeutic Exercise: 1: *piriformis stretch, 5q05aod each 2: *supine 90/90 hamstring stretch, 3i47ieu each 3: *bridge with glute activation, 2x10 4: *isometric hip adduction, 2x10 5: *knack technique Skilled Intervention: Patient was educated in proper exercise technique and purpose for exercises. Reviewed and educated patient on additions/changes for home exercise program as above (*). Skilled judgment was provided in selection of appropriate interventions. Provided written instruction for home exercise program to facilitate proper performance and compliance. [facility] Management: 1: Reviewed pelvic floor anatomy and [...] Sarah Pope PT documented in this encounter [facility] History of Present illness Narrative 04-05-2023 Jovan [...] 04/05/2023 2:49 PM Patient: Alem Messer MR#: [id number] : 1970 Age: 53 y.o. 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 [] [x] Name: Are you followed by [...] Nausea and Vomiting documented in this encounter [facility] Evaluation note Note Date & Type Note Facility documented in this encounter [facility] Evaluation note Note Date & Type Note Facility documented in this encounter [facility] Evaluation note Note Date & Type Note Facility documented in this encounter [facility] Summary Purpose Family History No Family History [...] HIP WITH PELVIS LEFT Jake Judge MD [address] [place] [address] Referral ID Status Reason Start Date Expiration Date V isits Requested Visits Authorized [id number] Pending Review 03/28/2023 04/21/2024 1 1 Specialty Diagnoses / Procedures Referred By Contac t Referred To Contact [facility] Diagnoses Pain in left hip Muscle weakness Procedures PT REHAB FOLLOW UP ORDER THERAPEUTIC EXERCISES RE, EA 15 MIN. Sarah Ellis, PT [address] [place] [address] [facility] [place] [address] [place] [address] Referral ID Status Reason Start Date Expiration Date Visits Requested Visits Authorized [id number] Pending Review PCP Requested Referral Auto-Generate d Referral 05/09/2023 08/07/2023 1 1 Additional Source Comments INFORMATION SOURCE (unrecogn ized section and content) DATE CREATED AUTHOR AUTHOR'S ORGANIZ ATION 01/31/2019 [facility] DATE CREATED AUTHOR AUTHOR'S ORGANIZ ATION 02/03/2022 [facility] DATE CREATED AUTHOR AUTHOR'S ORGANIZ ATION 06/09/2023 [facility] DATE CREATED AUTHOR AUTHOR'S ORGANIZ ATION 06/23/2023 [facility] Reason for Visit (unrecogniz ed section and content) Referral ID Status Reason Start Date Expiration Date V isits Requested Visits Authorized [id number] Pending Review 03/28/2023 04/21/2024 1 1 Reason [...] Sarah Ellis, PT [address] [place] [address] Referral ID Status Reason Start Date Expiration Date V isits Requested Visits Authorized [id number] Authorized 10/23/2022 10/22/2023 99 99 Reason Comments Pain Care Teams (unrecognized sec tion and content) Explosive Operator Grenade Relationship Specialty Start Date End Date Ulices Bernal MD [address] [phone] PCP - General Internal Medicine 04/05/23 Explosive Operator Grenade Relationship Specialty Start Date End Date Maria Teresa Dick [address] [place] [address] PCP - General Family Medicine 03/24/14 Explosive Operator Grenade Relationship Specialty Start Date End Date Ulices Bernal MD [address] [phone] PCP - General Internal Medicine 04/05/23 Source Comments (unrecognize d section and content) In the event this informatio n is protected by the Federal Confidentiality of Alcohol and Drug Abuse Patient Records regulations: The Federal rules restrict any use of the information to criminally investigate or prosecute any alcohol or drug abuse patient.[facility] FOR RECORDS PERTAINING TO PATIENTS WHO ARE [...] BE BASED ON THE PRIMARY CLINICAL RECORDS. [employer] [facility]. provides no warranty or guarantee of the accuracy or completeness of information in this document.
== END | disposition home or self-care (01) ==
LOC: MRI 07:39
PROVIDERS: PCP Internal Medicine; Referring Provider Orthopaedic Surgery; Visit Provider Orthopaedic Surgery
DX: M75.22 Bicipital tendinitis, left shoulder (principal)
CPT/HCPCS: 73218

== ENCOUNTER 2024-01-02 09:46 | Outpatient (REF) | payer SELFPAY ==
[2024-01-02 09:47] VITALS: BP 127/86; PULSE 79; RESP 15; TEMP 36.4; O2SAT 98; BMI 40.3
--- NOTE | 2024-01-02 10:53 | EX.ED.UPPERE ---
HPI History of Present Illness HPI Narrative: Patient presents with needlestick exposure to her left ring finger that occurred today at work. Patient was accidentally stuck with a needle into the tip of her left ring finger. Patient states she irrigated immediately. Patient states she squeezed her finger and expressed extra blood from her finger. Patient denies any paresthesias or weakness. Patient denies any other injuries. Patient is unsure of her last tetanus. Chief Complaint: Occup Expose Informant: patient Occured/Mechanism Mechanism/Context: Yes puncture wound Onset/Context/Timing Onset: Today Context: Sudden Onset Timing: Continuous Quality of Pain: Sharp Location: Left ring finger pad Current Severity: Gone Worsened by: Nothing Relieved by: Nothing Associated Symptoms Associated Symptoms: Negative for Parasthesia, Weakness or Loss of Funtion Narrative Tetanus Immunization: Unknown [facility] Medical History Anxiety and depression Back problem Discitis of lumbosacral region Family history of heart disease Former smoker GERD (gastroesophageal reflux disease) Health care maintenance Hypertension Left hip pain Morbid obesity PCOS (polycystic ovarian syndrome) Shortness of breath on exertion Wears glasses Home Medications multivitamin 1 cap PO DAILY 11/26/19 [History Last Taken 02/07/22 08:00] turmeric root extract 500 mg capsule 1,500 mg PO DAILY 12/18/19 [History Last Taken 02/06/22 08:00] ascorbic acid (vitamin C) 500 mg capsule 500 mg PO DAILY 03/24/20 [History Last Taken 02/07/22 08:00] cholecalciferol (vitamin D3) 50 mcg (2,000 unit) capsule 50 mcg PO DAILY 03/24/20 [History Last Taken 02/07/22 08:00] lactobacillus combination no.4 3 billion cell capsule (Probiotic) 3,000 mmu cells PO DAILY 01/09/23 [History Last Taken Unknown] ibuprofen 600 mg tablet 600 mg PO TID #60 tabs 08/09/23 [Rx Last Taken Unknown] omeprazole 10 mg capsule,delayed release 10 mg PO DAILY #90 caps 09/11/23 [Rx Last Taken Unknown] triamterene 37.5 mg-hydrochlorothiazide 25 mg tablet 1 tab PO QAM #90 tabs 09/11/23 [Rx Last Taken Unknown] Allergy/AdvReac Type Severity Reaction Status Date / Time No Known Allergies Allergy Verified 11/22/23 10:33 Family History Grandmother Diabetes type 2 Aunt Diabetes type 2 Other Anxiety and depression Surgical History H/O section History of colonoscopy History of hip surgery Social History number of children: 1 current occupational status: employed 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 Smoking Status: Former smoker Tobacco: How many years used: 8 alcohol intake: current alcohol intake frequency: holidays/special occasions only substance use type: does not use caffeine: Yes Type: coffee Number of servings: 2 what type of physical activity do you participate in: walking frequency: 3-4 times per week seatbelt use: sometimes do you feel safe at home: Yes additional social history: Single ROS ROS ED Constitutional Constitutional ED: Denies chills or fever(s) Eyes Eyes: Denies blurry vision or change in vision ENT ENT ED: Denies rhinorrhea or sore throat Cardiovascular Cardiovascular: Denies chest pain or palpitations Respiratory/Chest Respiratory/Chest: Denies cough or dyspnea Gastrointestinal Gastrointestinal: Denies nausea or vomiting Genitourinary Genitourinary ED: Denies dysuria or hematuria Musculoskeletal Musculoskeletal: Denies back pain or neck pain Integumentary Denies abscess or rash Neurologic Neurologic: Denies headache(s) or weakness Allergic/Immunologic Allergic/Immunologic ED: Denies mouth swelling or urticaria EXAM Physical Exam Const Vital Signs: 01/02/24 09:47 Temperature 97.5 F L Temperature Source Temporal Pulse Rate 79 Respiratory Rate 15 Blood Pressure 127/86 H Blood Pressure Mean 99 Pulse Ox 98 Oxygen Delivery Method Room Air Positive well nourished, well developed and obese General Appearance ED: well developed and NAD Nutritional Appearance: obese HEENT Reports moist mucous membranes Neck full ROM Extremity normal to inspection and full ROM Extremity Narrative: There is full range of motion of the left ring finger in the MP, PIP, and DIP joints. Capillary refill is less than 2 seconds in all digits. There is no deformity noted. General Extremety ED: Negative for edema General Extremity: Negative for edema Neuro oriented x3, CN's II-XII intact bilaterally, moves all extremities, no focal motor deficits and no sensory deficits noted Sensorium / Orientation: alert Motor Exam: strength 5/5 throughout Skin Skin Narrative: There is a small puncture wound on the pad of the distal phalanx of the left ring finger. There is no active bleeding noted. There is no erythema or warmth. MDM MDM MDM Narrative Medical decision making narrative: Patient was given a tetanus booster here. Exposure labs were obtained. Patient was instructed to follow-up with employee servtag for these results. Patient understood and was agreeable with the plan. All questions were answered Discharge Plan Triage Chief Complaint: Occup Expose ED Provider: Darryl Keller Dx/Rx/DC Orders Clinical Impression: Accidental needlestick injury with exposure to body fluid, Puncture wound of left ring finger Instructions: ED NEEDLE STICK Health Care Worker Prescriptions: No Action multivitamin capsule 1 cap PO DAILY turmeric root extract 500 mg capsule 1,500 mg PO DAILY cholecalciferol (vitamin D3) 50 mcg (2,000 unit) capsule 50 mcg PO DAILY ascorbic acid (vitamin C) 500 mg capsule 500 mg PO DAILY omeprazole 10 mg capsule,delayed release(DR/EC) 10 mg PO DAILY Qty: 90 1RF triamterene-hydrochlorothiazid 37.5-25 mg tablet 1 tab PO QAM Qty: 90 1RF Probiotic 3 billion cell Capsule 3,000 mmu cells PO DAILY Rx Instructions: administer with a meal ibuprofen 600 mg tablet 600 mg PO TID Qty: 60 1RF Rx Instructions: ok to take with tylenol. Primary Care Provider: Ulices Bernal Referrals: Ulices Bernal MD [Primary Care Provider] - 5-7 Days Health,Employee [Non-Staff -Ordering Privileges] - 3-5 Days Disposition Disposition: Home, Self Care
[2024-01-02] MEDS: Diphth,Pertuss(Acell),Tet Vac 0.5 ML Vial IM (11:12)
[2024-01-02 11:24] LABS: HIV - WCH Non-Reactive (Nonreactive); Hepatitis B Surface Antibody Reactive; Hepatitis B Surface Antigen Non-Reactive (Nonreactive); Hepatitis C Antibody Non-Reactive (Nonreactive)
[2024-01-02 11:25] VITALS: BP 125/83; PULSE 71; RESP 15; TEMP 36.4; O2SAT 97
--- OUTSIDE RECORDS SUMMARY | 2024-01-02 23:21 | XMS RPT_ITS | CCD ---
Author Name Unknown Address [address] [place] [address] Organization [facility] Care Team Providers Care Box Sealing Machine Catcher Name Role Phone Miguel Ángel Bee Attending Unavailable Maria Teresa Dick Primary Care Unavailable Maria Teresa Dick Attending Unavailable Maria Teresa Dick Primary Care Unavailable Carlos Zamorano Attending UnavailMaria Teresa George Primary Care Unavailable Carlos Zamorano Admitting UnavailCarlos Carrion Attending UnavailMaria Teresa George Primary Care Unavailable Carlos Zamorano Attending UnavailMari aTeresa George Primary Care Unavailable Ulices Bernal MD Primary Care Provider Maria Teresa Dick Primary Care Provider [phone] SELF, SELF Referring Unavailable ULICES BERNAL Primary Care Unavailable JAKE JUDGE Attending Unavailable JAKE JUDGE Attending Unavailable SELF, SELF Referring Unavailable TIMA BERNALEWIVANIABE Floresita Primary Care Unavailable JAKE JUDGE Attending Unavailable ANDIE BERNALBE Floresita Primary Care Unavailable JAKE JUDGE Referring Unavailable MARIA TERESA DICK Primary Care Unavailable SARAH TIWARI Attending Unavailable Allergies Allergy Classification Reported Allergen(s) Allergy Type Date of Onset Reaction(s) Facility (3 sources) HYDROmorphone Drug Allergy [address] [facility] Medications Current Medications Medication Drug Class(es) [...] 167.6 cm Jake Judge MD Work Phone: [facility] 04-05-2023 14:48-0400 Body mass index (BMI) [Ratio] 41 kg/m2 Jake Judge MD Work Phone: [facility] 04-05-2023 14:48-0400 Body weight 115.21 kg Jake Judge MD Work Phone: [facility] Encounters Encounter Date Encounter Type Care Provider Facility Start: 06-01-2023 ambulatory SELF SELF [facility] Start: 06-01-2023 End: 06-01-2023 Office outpatient visit 15 minutes Jake Judge MD Work Phone: [facility] Orthopedics Plan of Treatment Date Care Activity Detail Author Start: 02-15-2025 DIABETES SCREEN DIABETES SCREEN [facility] Start: 06-23-2023 Influenza vaccination [facility] Start: 10-23-2022 DEPRESSION ASSESSMENT DEPRESSION ASSESSMENT [facility] Start: 04-03-[address] [facility] Start: 2021 SHINGRIX VACCINE (1 of 2) SHINGRIX VACCINE (1 of 2) [facility] Start: 2021 Zoster vaccine hzv live for subcutaneous use ZOSTER (SHINGLES) VACCINE (1 of 2) [facility] Start: 01-27-2016 COLOGUARD (FIT-DNA) COLOGUARD (FIT-DNA) [facility] Start: 01-27-2016 Colonoscopy COLONOSCOPY [facility] Start: 01-27-2016 COLORECTAL CANCER SCREENING COLORECTAL CANCER SCREENING [facility] Start: 01-27-[address] COLONOGRAPHY [facility] Start: 01-27-2016 FECAL OCCULT BLOOD FECAL OCCULT BLOOD [facility] Start: 01-27-2016 LIPID SCREEN LIPID SCREEN [facility] Start: 01-27-2016 Screening for malignant neoplasm of colon COLORECTAL CANCER SCREENING DISCUSSION [facility] Start: 01-27-2016 SIGMOIDOSCOPY SIGMOIDOSCOPY [facility] Start: 2011 Lipid panel LIPID SCREENING [facility] Start: 2011 Mammography MAMMOGRAM [facility] Start: 2011 Screening for malignant neoplasm of breast MAMMOGRAM SCREENING DISCUSSION [facility] Start: 2001 HPV TESTING HPV TESTING [facility] Start: 01-27-1992 PAP TESTING PAP TESTING [facility] Start: 01-27-1992 Screening for malignant neoplasm of cervix CERVICAL CANCER SCREENING DISCUSSION [facility] Start: 1990 Urine microalbumin profile DTAP,TDAP,TD (1 - Tdap) [facility] Start: 1989 HEPATITIS C SCREENING HEPATITIS C SCREENING [facility] Start: 1989 HIV SCREENING HIV SCREENING [facility] Start: 1986 HIV screening HIV SCREENING DISCUSSION [facility] Start: 1971 COVID-19 VACCINE (#1) COVID-19 VACCINE (#1) [facility] Start: 1971 HEPATITIS B (1 of 3 - 3-dose series) HEPATITIS B (1 of 3 - 3-dose series) [facility] Start: 1971 Hepatitis C screening HEPATITIS C VIRUS SCREENING [facility] Start: 1971 Potassium [Moles/volume] in Serum or Plasma POTASSIUM [facility] XR Pelvis and Hip - left Views XR HIP WITH PELVIS LEFT Imaging Routine Left hip pain 04/05/2023 2:[address] [facility] Work Phone: [facility] Immunizations Immunization Date Immunization Notes Care Provider [facility] 09-13-2022 influenza virus vaccine, unspecified formulation Jake Judge MD Work Phone: [facility] Payers Date Payer Category Payer Private Health Insurance [id number] 2022 Private Health Insurance [id number] 1970 Unknown [id number] 1970 Unknown [id number] 1970 Unknown [id number] Social History Date Type Detail Facility Start: 05-27-2014 End: 04-05-2023 Tobacco smoking status NHIS Ex-smoker [facility] History of tobacco use Current smoker [facility] History of tobacco use Cigarette Smoker A [facility] Start: 05-27-2014 End: 04-05-2023 Tobacco use and exposure Smokeless tobacco non-user [facility] Start: 04-05-2023 End: 06-01-2023 Alcohol intake Current drinker of alcohol (finding) [facility] Start: 04-05-2023 End: 06-01-2023 History of [address] [facility] Start: 04-05-2023 End: 06-01-[address] 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 Referring Physician: [...] Procedure Laterality Date SECTION 2008 times 1 Family History: Her family history is not on file. Social History: Her reports that she has quit smoking. Her smoking use included cigarettes. She has never used smokeless tobacco. She reports current alcohol use. She reports that she does not use drugs. Outpatient Medications Prior to Visit Medication Sig Dispense Refill Ibuprofen 600 MG tablet omeprazole 10 MG Cap SEMAGLUTIDE, 1 MG/DOSE, SC Inject under the [...] bilaterally. MRI LEFT HIP at [facility] on 04/27/23 IMPRESSION: 1.) No fracture [...] Nausea and Vomiting documented in this encounter [facility] Progress note 05-09-2023 Note Date & Type Note Facility 05-09-2023 Note HNO ID: [id number] Author: Sarah Tiwari, PT Service: ? Author Type: Physical Therapist Type: Progress Notes Filed: 06/22/2023 2:05 PM Note Text: 06/22/2023 [facility] PHYSICAL THERAPY DISCONTINUANCE [...] of Care: created on 05/09/23 through 07/08/23 [place] in home exercise program. 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 PAST [...] / Excessive Straining: (more content not included)... [facility] History of Present illness Narrative 05-09-2023 [...] of Care: created on 05/09/23 through 07/08/23 [place] in home exercise program. 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 PAST [...] Demonstration TREATMENT: PT Treatment Interventions: Therapeutic Exercise, Self-Senior Care Management Evaluation Therapeutic Exercise: 1: *piriformis stretch, [id number] each 2: *supine 90/90 hamstring stretch, [id number] each 3: *bridge with glute activation, 2x10 4: *isometric hip adduction, 2x10 5: *knack technique Skilled Intervention: Patient was educated in proper exercise technique and purpose for exercises. Reviewed and educated patient on additions/changes for home exercise program as above (*). Skilled judgment was provided in selection of appropriate interventions. Provided written instruction for home exercise program to facilitate proper performance and compliance. Self-Senior Care Management: 1: Reviewed pelvic floor anatomy and [...] Sarah Pope PT documented in this encounter [facility] History of Present illness Narrative 04-05-2023 Jovan Jacobs LPN - 04/05/2023 2:30 PM Jace Judge MD - 04/05/2023 2:30 PM EDT [...] 04/05/2023 2:49 PM Patient: Alem Messer MR#: [id number] : 1970 Age: 53 y.o. 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 [...] []cane, []bracing Are you followed by a client experience consultant? [] [x] Name: Are you followed by [...] Disp: , Rfl: omeprazole [address], , Disp: , Rfl: SEMAGLUTIDE, 1 MG/DOSE, SC, Inject under the skin., Disp: , Rfl: triamterene-hydrochlorothiazide 37.5-25 MG tablet, , Disp: , Rfl: TURMERIC PO, Take by mouth., Disp: , Rfl: Allergies Allergen Reactions Dilaudid [Hydromorphone] Nausea and Vomiting documented in this encounter [facility] Evaluation note Note Date & Type Note Facility documented in this encounter [facility] Evaluation note Note Date & Type Note Facility documented in this encounter [facility] Evaluation note Note Date & Type Note Facility documented in this encounter [facility] Summary Purpose Family History No Family [...] HIP WITH PELVIS LEFT Jake Judge MD [address] [place] [address] Referral ID Status Reason Start Date Expiration Date V isits Requested Visits Authorized [id number] Pending Review 03/28/2023 04/21/2024 1 1 Specialty Diagnoses / Procedures Referred By Contac t Referred To Contact [facility] Diagnoses Pain in left hip Muscle weakness Procedures PT REHAB FOLLOW UP ORDER THERAPEUTIC EXERCISES RE, EA 15 MIN. Sarah Ellis, PT [address] [place] [address] [facility] [address] [place] [address] Referral ID Status Reason Start Date Expiration Date Visits Requested Visits Authorized [id number] Pending Review PCP Requested Referral Auto-Generate d Referral 05/09/2023 08/07/2023 1 1 Additional Source Comments INFORMATION SOURCE (unrecogn ized section and content) DATE CREATED AUTHOR AUTHOR'S ORGANIZ ATION 01/31/2019 [facility] DATE CREATED AUTHOR AUTHOR'S ORGANIZ ATION 02/03/2022 [facility] DATE CREATED AUTHOR AUTHOR'S ORGANIZ ATION 06/09/2023 [facility] DATE CREATED AUTHOR AUTHOR'S ORGANIZ ATION 06/23/2023 [facility] Reason for Visit (unrecogniz ed section and content) Referral ID Status Reason Start Date Expiration Date V isits Requested Visits Authorized [id number] Pending Review 03/28/2023 04/21/2024 1 1 Reason Comments Pain Reason Comments PT Eval Specialty Diagnoses / Procedures Referred By Contac t Referred To Contact Physical Therapy / PHYSICAL THERAPY Diagnoses Other symptoms and signs involving the musculoskeletal system hx gluteus minimus, medius tear R29.898 Other symptoms and signs involving the musculoskeletal system Procedures NEW RS PT PELVIC PAIN/INCONT Self Sarha Ellis, PT [address] [place] [address] Referral ID Status Reason Start Date Expiration Date V isits Requested Visits Authorized [id number] Authorized 10/23/2022 10/22/2023 99 99 Reason Comments Pain Care Teams (unrecognized sec tion and content) Box Sealing Machine Catcher Relationship Specialty Start Date End Date Ulices Bernal MD [address] [facility] [address] [place] [phone] PCP - General Internal Medicine 04/05/23 Box Sealing Machine Catcher Relationship Specialty Start Date End Date Maria Teresa Dick [address] [place] [address] PCP - General Family Medicine 03/24/14 Box Sealing Machine Catcher Relationship Specialty Start Date End Date Ulices Bernal MD [address] [phone] PCP - General Internal Medicine 04/05/23 Source Comments (unrecognize d section and content) In the event this informatio n is protected by the Federal Confidentiality of Alcohol and Drug Abuse Patient Records regulations: The Federal rules restrict any use of the information to criminally investigate or prosecute any alcohol or drug abuse patient.[facility] FOR RECORDS PERTAINING TO PATIENTS WHO [...] BE BASED ON THE PRIMARY CLINICAL RECORDS. [employer] [facility]. provides no warranty or guarantee of the accuracy or completeness of information in this document.
== END 2024-01-02 11:26 | disposition home or self-care (01) ==
LOC: ED 09:46
PROVIDERS: PCP Internal Medicine; Visit Provider Emergency Medicine
DX: L76.12 Accidental puncture and laceration of skin and subcutaneous tissue during other procedure (principal); E66.01 Morbid (severe) obesity due to excess calories; K21.9 Gastro-esophageal reflux disease without esophagitis; I10 Essential (primary) hypertension; Z79.899 Other long term (current) drug therapy; Z87.891 Personal history of nicotine dependence; Z23 Encounter for immunization
CPT/HCPCS: 86703; 86706; 86803; 87340; 90471; 90715

== ENCOUNTER → 2024-02-06 | Outpatient (CLI) | payer OTHER, SELFPAY ==
--- NOTE | 2024-02-06 10:02 | VDLE_ITS ---
Reason For Study: Left leg pain Procedure LEFT This is a venous duplex using B-mode, color CFV is compressible, spontaneous, phasic, flow and spectral Doppler. competent, and demonstrates normal Exam performed in department. augmentation. Patient was scanned in reverse Trendelenburg FV is compressible, spontaneous, phasic, position during reflux assessment. competent and demonstrates normal augmentation. POP V is compressible, spontaneous, phasic, competent and demonstrates normal augmentation. T/P Trunk is compressible. PTV is compressible. LT PerV is compressible. SFJ is competent and measures 0.68 x 0.57 cm. GSV proximal thigh measures 0.26 x 0.27 cm. GSV at knee measures 0.27 x 0.25 cm. GSV INCOMPETENT throughout for greater than 0.5 seconds. ASV proximal calf is INCOMPETENT for greater than 0.5 seconds and measures 0.17 x 0.16 cm. SSV proximal calf is INCOMPETENT for greater than 0.5 seconds and measures 0.20 x 0.23 cm. VL/Venous Duplex US, Unilateral Interpretation Summary Deep veins of the left lower extremity are patent and compressible segmentally. There is no evidence of left lower extremity deep vein thrombosis. The left great saphenous vein samantha ears patent and compressible segmentally. Positive for reflux in the left great saphenous vein throughout, accessory saph enous vein in the calf, and small saphenous vein Ordering Physician: Beverly Moses Referring Physician: Ulices Bernal Performed By: Patricia Pulido RVT
== END | disposition home or self-care (01) ==
LOC: CVS 10:01
PROVIDERS: PCP Internal Medicine; Referring Provider Physician Assistant; Visit Provider Physician Assistant
DX: I83.892 Varicose veins of left lower extremity with other complications (principal)
CPT/HCPCS: 93971

== ENCOUNTER → 2024-03-19 | Outpatient (CLI) | payer OTHER, SELFPAY ==
[2024-03-19 08:56] LABS: Estradiol 234.2 pg/mL; Prolactin 7.2 ng/mL; T4 Free Direct 0.93 ng/dL (0.76-1.46); Thyroid Stim Hormone (TSH) 2.52 uIU/mL (0.358-3.74)
[2024-03-19 12:51] LABS: T3 Total - Triiodothyronine 1.42 ng/mL (0.6-1.81); Vitamin B12 644 pg/mL (211-911); Vitamin D,25 Hydroxy 56.5 ng/mL
[2024-03-20 04:07] LABS: PROGESTERONE 1.1 ng/mL (.)
[2024-03-25 12:09] LABS: Testosterone, % Free 1.71 % (0.50-2.80); Testosterone, Free 0.43 ng/dL (0.10-0.85); Testosterone, Total 25 ng/dL (4-50)
== END | disposition home or self-care (01) ==
LOC: LAB 06:11
PROVIDERS: PCP Internal Medicine; Referring Provider Obstetrics & Gynecology; Visit Provider Obstetrics & Gynecology
DX: R53.82 Chronic fatigue, unspecified (principal); R63.5 Abnormal weight gain; N91.2 Amenorrhea, unspecified; E55.9 Vitamin D deficiency, unspecified
CPT/HCPCS: 36415; 82306; 82533; 82607; 82627; 82670; 84144; 84146; 84402; 84403; 84439; 84443; 84480; 84481; 82626

== ENCOUNTER → 2024-06-27 | Outpatient (CLI) | payer OTHER, SELFPAY ==
[2024-06-27 13:38] LABS: ALB/GLOB Ratio 0.9 RATIO (0.9-2.4); AST(SGOT) 22 U/L (15-37); Alanine Aminotransfer ALT/SGPT 39 U/L (13-56); Albumin, Serum 3.7 g/dL (3.2-5.0); Alkaline Phosphatase 90 U/L (45-117); Anion Gap 3 (5-15); BUN 16 mg/dL (7-18); BUN/Creat Ratio 20.3 RATIO (10-20); CRP 5.04 mg/L (0.0-3.0); Calcium,Total 9.6 mg/dL (8.5-10.1); Chloride 107 mmol/L (98-107); Creatinine, Serum 0.79 mg/dL (0.55-1.02); EST Glomerular Filtration Rate 81 mL/min (>60); Est Glom Filt Rate - Afr Amer 98 mL/min (>60); Globulin 3.9 g/dL (2.2-4.2); Glucose 85 mg/dL (74-106); Protein, Total 7.6 g/dL (6.4-8.2); Sodium Level 137 mmol/L (136-145)
[2024-06-27 13:59] LABS: Erythrocyte Sedimentation Rate 11 mm/hr (0-30)
[2024-06-27 14:02] LABS: Absolute Lymphocyte Count 2.78 X10^3/uL (0.83-4.51); Absolute Neutrophil Count 4.9 X10^3/uL (2.0-7.7); Basophil# 0.07 X10^3/uL; Basophil% 0.8 % (0-1); Eosinophil# 0.27 X10^3/uL; Eosinophils% 3.1 % (0-5); Hematocrit 43.5 % (37-47); Hemoglobin 14.2 g/dL (12.0-15.0); Lymphocyte # 2.78 X10^3/ul (0.83-4.51); Lymphocyte % 32.4 % (19-41); Mean Corp Hgb Conc 32.6 g/dL (32-36); Mean Corpuscular Hgb 28.4 pg (27.0-32.0); Mean Platelet Vol. 11.5 fl (6.2-12.0); Monocyte# 0.51 X10^3/uL; Monocyte% 5.9 % (0-10); NRBC Flagged by Analyzer 0 % (0-5); Neutrophil # 4.93 X10^3/uL (2.7-7.7); Neutrophil % 57.6 % (47-70); Platelet Count 212 K/mm3 (150-450); RBC Distribution Width CV 13.5 % (11.6-14.6); RBC Distribution Width SD 42.8 fl (35.1-43.9); White Blood Count 8.6 K/mm3 (4.4-11.0)
[2024-07-03 12:10] LABS: ACCA 10 units (0-90); ALCA 10 units (0-60); AMCA 35 units (0-100); Angiotensin Convert Enzyme 58 U/L (14-82); Anti-Parietal Cell AB, QN 11.4 Units (0.0-20.0); Anti-Smooth Muscle ABS 5 Units (0-19); Cytoplasmic Ab (C-ANCA) <1:20 titer (Neg:<1:20); Endomysial Antibody IgA Negative (Negative); Gastrin, Serum 47 pg/mL (0-115); Immunoglobulin A 198 mg/dL (87-352); Immunoglobulin E 26 IU/mL (6-495); Immunoglobulin G 1008 mg/dL (586-1602); Immunoglobulin M 83 mg/dL (26-217); Intrinsic Factor Ab 1.1 AU/mL (0.0-1.1); Perinuclear Ab (P-ANCA) <1:20 titer (Neg:<1:20); gASCA 10 units (0-50); t-Transglutaminase IgA <2 U/mL (0-3)
[2024-07-04 07:09] LABS: Anti-Mitochondrial AB <20.0 Units (0.0-20.0); Beef <0.10 kU/L (Class 0); Chocolate <0.10 kU/L (Class 0); Codfish <0.10 kU/L (Class 0); Corn <0.10 kU/L (Class 0); Egg, Whole <0.10 kU/L (Class 0); Milk (Cow) <0.10 kU/L (Class 0); Mussels <0.10 kU/L (Class 0); Peanut <0.10 kU/L (Class 0); Pork <0.10 kU/L (Class 0); Salmon <0.10 kU/L (Class 0); Shrimp <0.10 kU/L (Class 0); Soybean <0.10 kU/L (Class 0); Tuna <0.10 kU/L (Class 0); Wheat <0.10 kU/L (Class 0)
== END | disposition home or self-care (01) ==
PROVIDERS: PCP Internal Medicine; Referring Provider Student in an Organized Health Care Education/Training Program; Visit Provider Student in an Organized Health Care Education/Training Program
DX: R10.9 Unspecified abdominal pain (principal)
CPT/HCPCS: 36415; 80053; 82164; 82784; 82785; 82941; 83516; 85025; 85652; 86003; 86005; 86036; 86140; 86255; 86256; 86340; 86671

== ENCOUNTER → 2024-07-03 | Outpatient (CLI) | payer OTHER, SELFPAY ==
[2024-07-06 06:13] LABS: Calprotectin, Stool 13 ug/g (0-120)
[2024-07-07 00:06] LABS: Giardia Lamblia, Stool EIA Negative (Negative); Pancreatic Elastase, Fecal > 800 (>200)
== END | disposition home or self-care (01) ==
PROVIDERS: PCP Internal Medicine; Referring Provider Student in an Organized Health Care Education/Training Program; Visit Provider Student in an Organized Health Care Education/Training Program
DX: K58.9 Irritable bowel syndrome, unspecified (principal); R10.9 Unspecified abdominal pain
CPT/HCPCS: 82653; 83630; 83993; 87329; 87506

== ENCOUNTER → 2024-07-12 | Outpatient (CLI) | payer OTHER, SELFPAY ==
--- NOTE | 2024-07-12 07:28 | NM_ITS ---
CLINICAL: 54-year-old female with history of abdominal pain. SEMI-SOLID PHASE 99m Tc SULFUR COLLOID GASTRIC EMPTYING STUDY COMPARISON: None available FINDINGS: The patient was administered 1.1 mCi of 99m Tc sulfur colloid mixed with oatmeal and consumed per os. Image acquisitions in the anterior-posterior projections were obtained for 60 minutes. There is prompt visualization of the stomach. There is no gastroesophageal reflux identified. The T ? raw data emptying was calculated to be 22.77 minutes, (Normal: 12-56 minutes). NM/Gastric Emptying Study IMPRESSION: 1. NORMAL 99m Tc sulfur colloid semi-solid phase (oatmeal) gastric emptying imaging examination. A. There is normal and preserved semi-solid phase gastric emptying compared to normal controls. (Jama et al, J Nucl Med Tech 38: 186, 2010). Electronically Signed: Luis Cheatham DO at 9:27 EDT ,
== END | disposition home or self-care (01) ==
LOC: NM 07:40
PROVIDERS: PCP Internal Medicine; Referring Provider Student in an Organized Health Care Education/Training Program; Visit Provider Student in an Organized Health Care Education/Training Program
DX: R10.9 Unspecified abdominal pain (principal)
CPT/HCPCS: 78264; A9541

== ENCOUNTER 2024-09-22 15:37 | Emergency (ER) | payer OTHER, SELFPAY ==
[2024-09-22 15:41] VITALS: BP 132/73; PULSE 71; RESP 18; TEMP 36.8; O2SAT 97; BMI 41.6
--- NOTE | 2024-09-22 16:09 | EDS_ITS ---
HPI History of Present Illness Chief Complaint: Lower Extremity Injury Narrative Narrative: Present with chief complaint and HPI: Sciatica. 54-year-old female presents for evaluation of right lumbar back pain/sciatica flare. Patient states that she has history of lumbar back pain in the past. She states a month ago her back pain/sciatica flared up. She states she was seen by an [facility] emergency department at that time where she had a CT abdomen pelvis that was unremarkable. No urolithiasis. She states that she was ultimately discharged. Patient states her back pain has continued. She states its mostly in her right lumbar back and radiates into her right buttocks/thigh. She describes the pain as burning. She was seen at another [facility] ED on Monday and was given IV Decadron, a total of 75 mcg fentanyl IV, 15 mg IV Toradol. She had x- rays of the lumbar sacrum/coccyx that was unremarkable. She had a CBC and CMP performed that was unremarkable. She had a UA that showed WBC as well as 1+ bacteria negative for nitrates. This information was obtained by the paperwork that she brought in and all results were reviewed by me. She was discharged home on prednisone, cyclobenzaprine, and Keflex. Patient does not believe she has a UTI. She believes that it just was not a clean-catch. She is not having any fever, chills, abdominal pain, nausea, vomiting, dysuria, hematuria. Patient states her pain is not improving. She denies any trauma or fall. Denies numbness, weakness, urinary retention, stool or urinary incontinence, saddle anesthesia, recent invasive manipulation of the spine, intravenous drug use. On chart review, patient did have a lumbar MRI in 2021 she was found to have degenerative changes. Review of systems: See HPI Medications: As listed on the chart Allergies: As listed on the chart PFSH: Per chart Vital signs: As listed on the chart. Reviewed. Physical exam: Gen: A&O x3, NAD Head: Normocephalic, atraumatic Eyes: No sclera icterus, conjunctiva clear, PERRL, EOMI ENT: Moist mucous membranes Neck: Trachea midline, No JVD, full range of motion CV: RRR, no murmurs Resp: Lungs CTA BL, no w/r/c GI: Abd soft, non-distended, non-tender, no r/r/g : No CVA tenderness Musc: Limited range of motion of the right lower extremity secondary to pain however full range of motion of all other extremities, strength plus 5 out of 5 in all extremity, no deformity, no midline spinal tenderness, no bony step-offs, no signs of infection or trauma of the back, paraspinal musculature of the right lumbar spine is tense-mildly tender, patient is mostly tender in her right gluteal muscle Skin: Warm, dry, intact Neuro: Alert, oriented, grossly intact, sensation intact Psych: Cooperative, appropriate mood and affect [facility] Medical History Health care maintenance Wears glasses Former smoker Shortness of breath on exertion GERD (gastroesophageal reflux disease) Morbid obesity Anxiety and depression Left hip pain Family history of heart disease Hypertension Discitis of lumbosacral region Back problem PCOS (polycystic ovarian syndrome) Home Medications ?Medication ?Instructions ?Recorded ?Last Taken ?Type multivitamin 1 cap PO DAILY 11/26/19 02/07/22 08:00 History turmeric root extract 500 mg 1,500 mg PO DAILY 12/18/19 02/06/22 08:00 History capsule ascorbic acid (vitamin C) 500 mg 500 mg PO DAILY 03/24/20 02/07/22 08:00 History capsule cholecalciferol (vitamin D3) 50 50 mcg PO DAILY 03/24/20 02/07/22 08:00 History mcg (2,000 unit) capsule lactobacillus combination no.4 3 3,000 mmu cells PO DAILY 01/09/23 Unknown History billion cell capsule (Probiotic) ibuprofen 600 mg tablet 600 mg PO TID PRN 03/21/24 Unknown History triamterene 37.5 1 tab PO QAM #90 tabs 03/21/24 Unknown Rx mg-hydrochlorothiazide 25 mg tablet omeprazole 10 mg capsule,delayed 10 mg PO DAILY #90 caps 03/29/24 Unknown Rx release linaclotide 72 mcg capsule 72 mcg PO QAM #30 caps 07/16/24 Unknown Rx (Linzess) lubiprostone 8 mcg capsule 8 mcg PO QDAY #30 caps 08/12/24 Unknown Rx Allergy/AdvReac Type Severity Reaction Status Date / Time hydromorphone (From Dilaudid) Allergy Vomiting Verified 09/22/24 15:40 Family History Grandmother Diabetes type 2 Aunt Diabetes type 2 Other Anxiety and depression Surgical History History of colonoscopy History of hip surgery H/O section Social History number of children: 1 current occupational status: employed 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 Smoking Status: Former smoker Tobacco: How many years used: 8 alcohol intake: current alcohol intake frequency: holidays/special occasions only substance use type: does not use caffeine: Yes Type: coffee Number of servings: 2 what type of physical activity do you participate in: walking frequency: 3-4 times per week seatbelt use: sometimes do you feel safe at home: Yes additional social history: Single EXAM Physical Exam Const Vital Signs: 09/22/24 15:41 Temperature 98.2 F Temperature Source Temporal Pulse Rate 71 Respiratory Rate 18 Blood Pressure 132/73 H Blood Pressure Mean 92 Pulse Ox 97 Oxygen Delivery Method Room Air MDM MDM MDM Narrative Medical decision making narrative: 54-year-old female presents for evaluation of right lumbar back pain/sciatica flare. She has already been seen in two different emergency departments where she had a CT abdomen pelvis that was unremarkable as well as unremarkable laboratory workup and x-rays on Monday. On Monday she was discharged home with prednisone p.o. and cyclobenzaprine which she has been taking as well as her Keflex. She states that she was told not to take NSAIDs so she was not taking these. Patient is not having any fever, chills abdominal pain, nausea, vomiting, dysuria, hematuria. Given that she is asymptomatic other than pain and just had an unremarkable workup I do not think any laboratory or imaging is needed at this time. There is no neurologic findings to suggest an acute cauda equina syndrome. At this point I do not feel any emergent MRI is warranted. We will repeat UA as patient does not believe she has a UTI and would like this rechecked. Will give morphine and p.o. Valium for pain control. Patient still having pain. Toradol ordered. UA shows leuk esterases as well as +1 bacteria. Still concerning for possible UTI therefore urine culture sent. Patient was told to continue her Keflex. She was told to continue her prednisone as well as cyclobenzaprine. Ibuprofen as needed. She was educated that ibuprofen and prednisone can both cause ulcer and GI upset and to make sure that she is not taking these on empty stomach and not at the same time. On reevaluation, patient's pain has improved. Patient is able to ambulate. Patient stable to discharge home. Follow-up with her orthopedic. She confirmed understand the plan. Return precautions explained Impression: 1. Lumbar back pain with radiculopathy to right lower extremity 2. Sciatica Lab Data Labs: Laboratory Results - last 24 hr 09/22/24 16:13 Urine Color Yellow Urine Clarity Clear Urine pH 5.0 Ur Specific [place] 1.025 Urine Protein Negative Urine Glucose (UA) 50 H Urine Ketones Negative Urine Occult Blood Negative Urine Nitrite Negative Urine Bilirubin Negative Urine Urobilinogen Normal Ur Leukocyte Esterase 25 H Urine RBC 0 SEEN Urine WBC 0-5 SEEN Ur Squamous Epith Cells 5-10 SEEN Urine Bacteria 1+ Hyaline Casts 0-5 SEEN Urine Mucus 0 SEEN Discharge Plan Triage Chief Complaint: Lower Extremity Injury ED Provider: Abhi Khan Dx/Rx/DC Orders Clinical Impression: Acute bilateral low back pain with right-sided sciatica Instructions: Understanding Lumbar Radiculopathy, ED Back Pain (Acute or Chronic) Prescriptions: No Action multivitamin Capsule 1 cap PO DAILY turmeric root extract 500 mg capsule 1,500 mg PO DAILY cholecalciferol (vitamin D3) 50 mcg (2,000 unit) capsule 50 mcg PO DAILY ascorbic acid (vitamin C) 500 mg capsule 500 mg PO DAILY ibuprofen 600 mg tablet 600 mg PO TID PRN Rx Instructions: ok to take with tylenol. triamterene-hydrochlorothiazid 37.5-25 mg tablet 1 tab PO QAM Qty: 90 1RF Probiotic 3 billion cell Capsule 3,000 mmu cells PO DAILY Rx Instructions: administer with a meal omeprazole 10 mg capsule,delayed release(DR/EC) 10 mg PO DAILY Qty: 90 1RF Linzess 72 mcg capsule 72 mcg PO QAM Qty: 30 3RF lubiprostone 8 mcg capsule 8 mcg PO QDAY Qty: 30 3RF Primary Care Provider: Ulices Bernal Referrals: Ulices Bernal MD [Primary Care Provider] - 3-5 Days Angel Anguiano DO [Med Staff - Active Staff] - 3-5 Days Activity Restrictions/Additional Instructions: Return back to the ED if symptoms change or worsen. Continue to take your prednisone and cyclobenzaprine Print Language: [place] Disposition Disposition: Home, Self Care Discharge Date/Time: 09/22/24 18:40
[2024-09-22] MEDS: Ondansetron 4 MG/2 ML Vial IV (16:14)
[2024-09-22] MEDS: diazePAM 2 MG Tablet PO (16:14)
[2024-09-22] MEDS: Morphine 4 MG/ML Syringe IV (16:14)
[2024-09-22 16:21] LABS: Mucous, Urine 0 SEEN /hpf (<or=2+); Red Blood Cells-Urine 0 SEEN /hpf (0-5)
[2024-09-22 16:22] LABS: Color, Urine Yellow (Yellow); Glucose, Dipstick 50 mg/dl (Normal); Ketone-Dipstick Negative (Negative); Leukocyte Esterase-Dipstick 25 /ul (Negative); Nitrite-Dipstick Negative (Negative); Occult Blood-Urine Negative /ul (Negative); Protein-Dipstick Negative (Negative); Specific Gravity, Urine 1.025 (1.002-1.030); Urine Bilirubin Dipstick Negative (Negative); Urine Clarity Clear (Clear); Urine Urobilinogen Normal (Normal)
[2024-09-22 16:32] LABS: Bacteria 1+ /hpf (None Seen); Hyaline Cast 0-5 SEEN /lpf (0-5); Squamous Epithelial Cells - UA 5-10 SEEN /hpf (5-10); White Blood Cells 0-5 SEEN /hpf (0-5)
[2024-09-22] MEDS: Ketorolac 15 MG/ML Vial IV (18:34)
== END 2024-09-22 18:40 | disposition home or self-care (01) ==
PROVIDERS: Emergency Provider Surgery; PCP Internal Medicine; Visit Provider Surgery
DX: M54.41 Lumbago with sciatica, right side (principal); I10 Essential (primary) hypertension; Z79.899 Other long term (current) drug therapy; Z87.891 Personal history of nicotine dependence
CPT/HCPCS: 81001; 87086; 87088; 96374; 96375; 99283; A4216; J2405

== ENCOUNTER → 2024-09-26 | Outpatient (CLI) | payer OTHER, SELFPAY ==
--- NOTE | 2024-09-26 14:26 | RAD_ITS ---
HISTORY: pain -- please do upright AP, LAT, flex/ext. TECHNIQUE: XR Spine Lumbar Min 4 Views. COMPARISON: 05/18/2022. FINDINGS: VERTEBRAE: Vertebral body heights preserved. Posterior elements appear intact. ALIGNMENT: Chronic 2 mm anterolisthesis of L4-5, mildly reduced with extension and unchanged on flexion. INTERVERTEBRAL DISCS: Degenerative endplate changes with intervertebral disc space narrowing again seen at L4-5 and L5-S1. RAD/L/S Spine Min 4 Views IMPRESSION: No acute fracture or dislocation identified in the lumbar spine. Chronic mild anterolisthesis of L4-5. Degenerative change of the lower lumbar spine. Electronically Signed: Valentina Kapadia MD at 10:41 EST ,
== END | disposition home or self-care (01) ==
LOC: MTRAD 14:26
PROVIDERS: PCP Internal Medicine; Referring Provider Student in an Organized Health Care Education/Training Program; Visit Provider Student in an Organized Health Care Education/Training Program
DX: M54.50 Low back pain, unspecified (principal)
CPT/HCPCS: 72110

== ENCOUNTER → 2024-10-21 | Outpatient (CLI) | payer OTHER, SELFPAY ==
--- NOTE | 2024-10-21 07:31 | MRI_ITS ---
EXAM: MR LUMBAR SPINE WITHOUT INTRAVENOUS CONTRAST CLINICAL INDICATION: pain, RT HIP/ SI JOINT, H/O OF DISCITIS TECHNIQUE: Multiplanar and multisequence MR images of the lumbar spine without intravenous contrast. COMPARISON: 10/21/2022. FINDINGS: VERTEBRAE: See below. SPINAL CORD: Unremarkable. Normal position and signal intensity of the conus medullaris. SOFT TISSUES: Unremarkable. DISCS/SPINAL CANAL/NEURAL FORAMINA: L1-L2: Unremarkable. Normal disc height and morphology. Normal spinal canal and lateral recesses. Normal neuroforamina. L2-L3: Unremarkable. Normal disc height and morphology. Normal spinal canal and lateral recesses. Normal neuroforamina. L3-L4: Unremarkable. Normal disc height and morphology. Normal spinal canal and lateral recesses. Normal neuroforamina. L4-L5: Moderate disc space narrowing. No spinal canal or foraminal stenosis. L5-S1: Moderate disc space narrowing. Modic type II endplate changes. Slight generalized disc bulge. No spinal canal or foraminal stenosis. MRI/Spine Lumbar (Routine) IMPRESSION: 1. L4-L5 moderate spondylosis. No spinal canal or foraminal stenosis. 2. L5-S1 with moderate spondylosis. No spinal canal or foraminal stenosis. Electronically Signed: Saul Pyle MD at 8:50 EST ,
== END | disposition home or self-care (01) ==
LOC: MRI 07:24
PROVIDERS: PCP Internal Medicine; Referring Provider Student in an Organized Health Care Education/Training Program; Visit Provider Student in an Organized Health Care Education/Training Program
DX: M43.16 Spondylolisthesis, lumbar region (principal); M51.362 Other intervertebral disc degeneration, lumbar region with discogenic back pain and lower extremity pain; M54.16 Radiculopathy, lumbar region
CPT/HCPCS: 72148

== ENCOUNTER → 2024-11-25 | Outpatient (CLI) | payer OTHER, SELFPAY ==
[2024-11-25 10:59] LABS: Anion Gap 6 (5-15); BUN 16 mg/dL (7-18); BUN/Creat Ratio 19.7 RATIO (10-20); Calcium,Total 9.8 mg/dL (8.5-10.1); Chloride 105 mmol/L (98-107); Creatinine, Serum 0.81 mg/dL (0.55-1.02); EST Glomerular Filtration Rate 78 mL/min (>60); Est Glom Filt Rate - Afr Amer 94 mL/min (>60); Glucose 81 mg/dL (74-106); Potassium 4.7 mmol/L (3.5-5.1); Sodium Level 139 mmol/L (136-145)
== END | disposition home or self-care (01) ==
LOC: BIMLAB 09:17
PROVIDERS: PCP Internal Medicine; Referring Provider Internal Medicine; Visit Provider Internal Medicine
DX: I10 Essential (primary) hypertension (principal)
CPT/HCPCS: 36415; 80048